=== PATIENT | male | born 1970 | race Caucasian/White ===

== ENCOUNTER 2019-09-15 15:30 | Inpatient (IN) | payer OTHER ==
[2019-09-15 18:59] VITALS: BMI 27.4
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
[2019-09-15] MEDS ORDERED: ALBUTEROL SO4 HFA INHALER IH PRN (22:28)
[2019-09-15] MEDS ORDERED: BISMUTH SUBSALICYLATE 524 MG/30 ML UD PO PRN (22:31)
[2019-09-15] MEDS ORDERED: MENTHOL/PHENOL 1 EACH UD MM PRN (22:31)
[2019-09-15] MEDS ORDERED: MAG HYDROX/AL HYDROX/SIMETH 30 ML UNIT-DOSE CUP PO PRN (22:31)
[2019-09-15] MEDS ORDERED: MAGNESIUM CITRATE 300 ML BOTTLE PO PRN (22:31)
[2019-09-15] MEDS ORDERED: MAGNESIUM HYDROX 2400MG/30ML ORAL SUSPENSION 30 ML CUP PO PRN (22:31)
[2019-09-15] MEDS ORDERED: hydrOXYzine PAMOATE 25 MG CAPSULE (FP) PO PRN (22:31)
[2019-09-15] MEDS ORDERED: ACETAMINOPHEN 325 MG TABLET (FP) PO PRN (22:31)
[2019-09-15] MEDS ORDERED: cloNIDine HCL 0.1 MG TABLET PO PRN (22:33)
[2019-09-15] MEDS ORDERED: METHADONE HCL 10 MG TABLET (FOR DETOX USE ONLY) PO ONE (23:00)
[2019-09-15] MEDS ORDERED: BACITRACIN/POLYMYXIN B SULFATE 15 GM TUBE TP SCH ×2 (23:00→23:20)
[2019-09-16] MEDS: METHOCARBAMOL 500 MG TABLET PO PRN ×2 (00:05→22:42)
[2019-09-16] MEDS: CLINDAMYCIN HCL 150 MG CAPSULE (FP) PO SCH ×6 (00:05→23:16)
[2019-09-16] MEDS: clonazePAM 0.5 MG TABLET PO PRN ×2 (00:05→22:42)
[2019-09-16] MEDS: IBUPROFEN 400 MG TABLET (FP) PO PRN ×2 (00:10→17:35)
[2019-09-16] MEDS: MELATONIN 5 MG TABLETS PO PRN ×2 (00:13→22:43)
[2019-09-16] MEDS: BACITRACIN 15 GM TUBE TOPICAL OINTMENT TP SCH ×3 (00:28→22:42)
[2019-09-16] MEDS ORDERED: METHADONE HCL 10 MG TABLET (FOR DETOX USE ONLY) ONE (09:23)
[2019-09-16] MEDS ORDERED: METHADONE HCL 5 MG TABLET (FOR DETOX USE ONLY) ONE (09:23)
[2019-09-16] MEDS ORDERED: METHADONE (DETOX) 20 MG, METHADONE (DETOX) 5 MG PO ONE (10:00)
[2019-09-16] MEDS: PRENATAL VITAMINS W/ FOLIC ACID TABLET (FP) PO SCH (10:44)
--- NOTE | 2019-09-16 12:01 | EKG ---
Test Reason : Blood Pressure : / mmHG Vent. Rate : 058 BPM Atrial Rate : 058 BPM P-R Int : 126 ms QRS Dur : 094 ms QT Int : 424 ms P-R-T Axes : 045 049 043 degrees QTc Int : 416 ms SINUS BRADYCARDIA OTHERWISE NORMAL ECG WHEN COMPARED WITH ECG OF 12-FEB-2018 14:10, NO SIGNIFICANT CHANGE WAS FOUND Confirmed by REID FUCHS MD ([id number]) on 09/16/2019 12:01:15 PM Referred By: Confirmed By:REID FUCHS MD
--- NOTE | 2019-09-16 14:59 | PN ---
BHS COWS - Scale Resting Pulse: 0= [place] 80 or Below Sweatin= Chills/Flushing Restless Observation: 0= Sits Still Pupil Size: 1= Pupils >than Normal Bone or Joint Aches: 1= Mild Discomfort Runny Nose/ Eye Tearin= Nasal Congestion GI Upset > 30mins: 1= Stomach Cramp Tremor Observation of Outstretched Hands: 1= Tremor [place], Not Seen Yawning Observation: 0= None Anxiety or Irritability: 1=Feels Anxious/Irritable Goose Flesh Skin: 3=Piloerection COWS Score: 10 BHS Progress Note (SOAP) Subjective: 49 years old male admitted on 09/15/19 for opiate withdrawal sx management treating with methadone detox regimen multiple track willis and scars from healed abscess due to IV drug using patient understands the purpose of "clean" needles as well as keep current I&D of left inner calf and right upper arm abscess two partial thickness traumatic wounds left leg 13 cm in diameter beefy red swelling warm and tender center I&D incision well demarkated yellow pus noted in center right fore arm 15cm in diameter beefy red swelling warm tender with yellow pus patient wants to "peel" it open himself "I do that many times" right arm wound cleaned with alcohol cover with sterile gauze encourage warm compress and keep area clean and dry Objective: 09/16/19 15:47 Vital Signs Temperature 97.6 F 09/16/19 13:08 Pulse Rate 47 L 09/16/19 13:08 Respiratory Rate 18 09/16/19 13:08 Blood Pressure 119/69 09/16/19 13:08 O2 Sat by Pulse Oximetry (%) 09/16/19 15:51 lab pending Assessment: 09/16/19 15:51 opiate withdrawal Plan: methadone regimen
[2019-09-16] MEDS: THIAMINE HCL 100 MG TABLET (FP) PO SCH (23:05)
[2019-09-17] MEDS: CLINDAMYCIN HCL 150 MG CAPSULE (FP) PO SCH ×4 (06:06→23:01)
[2019-09-17 09:28] LABS: HEMATOCRIT 32.3 % (35.4-49); MCH 30.2 pg (25.7-33.7); MCHC 34.1 g/dl (32.0-35.9); MEAN CELL VOLUME 88.6 fl (80-96); MEAN PLT VOLUME 9.1 fl (7.5-11.1); PLATELET COUNT 205 K/MM3 (134-434); RBC 3.65 M/mm3 (4.00-5.60); RDW 14.3 % (11.9-15.9); WHITE BLOOD COUNT 3.2 K/mm3 (4.0-10.0)
[2019-09-17 09:41] LABS: BILIRUBIN,TOTAL 0.6 mg/dL (0.2-1); BLOOD UREA NITROGEN 14.8 mg/dL (7-18); CALCIUM 8.5 mg/dL (8.5-10.1); CREATININE 0.8 mg/dL (0.55-1.3); TOT PROT 7.2 g/dl (6.4-8.2)
[2019-09-17] MEDS: PRENATAL VITAMINS W/ FOLIC ACID TABLET (FP) PO SCH (09:43)
[2019-09-17] MEDS: ACETAMINOPHEN 325 MG TABLET (FP) PO PRN ×2 (09:43→23:01)
[2019-09-17] MEDS: BACITRACIN 15 GM TUBE TOPICAL OINTMENT TP SCH ×2 (09:45→22:39)
[2019-09-17] MEDS ORDERED: METHADONE HCL 10 MG TABLET (FOR DETOX USE ONLY) PO ONE (10:00)
--- NOTE | 2019-09-17 14:24 | PN ---
BHS COWS - Scale Resting Pulse: 0= [place] 80 or Below Sweatin= Chills/Flushing Restless Observation: 1= Difficult to Sit Still Pupil Size: 1= Pupils >than Normal Bone or Joint Aches: 2= Severe Diffuse Aches Runny Nose/ Eye Tearin= Nasal Congestion GI Upset > 30mins: 1= Stomach Cramp Tremor Observation of Outstretched Hands: 0= None Yawning Observation: 0= None Anxiety or Irritability: 1=Feels Anxious/Irritable Goose Flesh Skin: 0=Smooth Skin COWS Score: 8 BHS Progress Note (SOAP) Subjective: interrupted sleep, sweats,, achy, left calf abscess d/c. Objective: 09/17/19 14:20 Vital Signs Temperature 98.4 F 09/17/19 13:33 Pulse Rate 49 L 09/17/19 13:33 Respiratory Rate 18 09/17/19 13:33 Blood Pressure 142/66 09/17/19 13:33 O2 Sat by Pulse Oximetry (%) Laboratory Tests 09/17/19 09/17/19 09/17/19 08:20 08:20 08:20 WBC 3.2 L RBC 3.65 L Hgb 11.0 L Hct 32.3 L MCV 88.6 MCH 30.2 MCHC 34.1 RDW 14.3 Plt Count 205 MPV 9.1 Sodium 139 Potassium 4.0 Chloride 109 H Carbon Dioxide 26 Anion Gap 4 L BUN 14.8 Creatinine 0.8 Est GFR (CKD-EPI)AfAm 123.29 Est GFR (CKD-EPI)NonAf 106.38 Random Glucose 114 H Calcium 8.5 Total Bilirubin 0.6 AST 19 ALT 25 Alkaline Phosphatase 83 Total Protein 7.2 Albumin 3.0 L RPR Titer Nonreactive pt aox3 in nad; in wc rt forearm abscess left calf draing abscess /whitish d/c surrounding erythema Assessment: 09/17/19 14:23 withdrawal sx's rt forearm abscess left calf abscess neutropenia anemia Plan: cont detox increase fluids cont clindamycin daily wound care and dressings warm compresses to rt forearm
[2019-09-17] MEDS: clonazePAM 0.5 MG TABLET PO PRN (14:31)
[2019-09-17] MEDS: THIAMINE HCL 100 MG TABLET (FP) PO SCH (23:01)
[2019-09-18] MEDS: ACETAMINOPHEN 325 MG TABLET (FP) PO PRN (06:03)
[2019-09-18] MEDS: CLINDAMYCIN HCL 150 MG CAPSULE (FP) PO SCH ×4 (06:03→23:06)
[2019-09-18] MEDS ORDERED: METHADONE HCL 10 MG TABLET (FOR DETOX USE ONLY) ONE (08:36)
[2019-09-18] MEDS ORDERED: METHADONE HCL 5 MG TABLET (FOR DETOX USE ONLY) ONE (08:36)
[2019-09-18] MEDS ORDERED: METHADONE (DETOX) 10 MG, METHADONE (DETOX) 5 MG PO ONE (10:00)
[2019-09-18] MEDS: PRENATAL VITAMINS W/ FOLIC ACID TABLET (FP) PO SCH (10:35)
[2019-09-18] MEDS: BACITRACIN 15 GM TUBE TOPICAL OINTMENT TP SCH ×2 (10:35→23:15)
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
--- NOTE | 2019-09-18 11:40 | PN ---
BHS COWS - Scale Resting Pulse: 0= [place] 80 or Below Sweatin= Chills/Flushing Restless Observation: 1= Difficult to Sit Still Pupil Size: 0= Normal to Room Light Bone or Joint Aches: 2= Severe Diffuse Aches Runny Nose/ Eye Tearin= None GI Upset > 30mins: 0= None Tremor Observation of Outstretched Hands: 0= None Yawning Observation: 1= 1-2x During Session Anxiety or Irritability: 2=Irritable/Anxious Goose Flesh Skin: 0=Smooth Skin COWS Score: 7 BHS Progress Note (SOAP) Subjective: c/o anxiety, sweats, muscle aches, and irritability. Objective: 09/18/19 11:41 Vital Signs 09/18/19 09/18/19 09/18/19 06:30 06:35 09:15 Temperature 98.5 F 98.2 F Pulse Rate 45 L 67 Respiratory 18 18 18 Rate Blood Pressure 152/75 138/81 Laboratory Last Values WBC 3.2 K/mm3 (4.0-10.0) L 09/17/19 08:20 RBC 3.65 M/mm3 (4.00-5.60) L 09/17/19 08:20 Hgb 11.0 GM/dL (11.7-16.9) L 09/17/19 08:20 Hct 32.3 % (35.4-49) L 09/17/19 08:20 MCV 88.6 fl (80-96) 09/17/19 08:20 MCH 30.2 pg (25.7-33.7) 09/17/19 08:20 MCHC 34.1 g/dl (32.0-35.9) 09/17/19 08:20 RDW 14.3 % (11.9-15.9) 09/17/19 08:20 Plt Count 205 K/MM3 (134-434) 09/17/19 08:20 MPV 9.1 fl (7.5-11.1) 09/17/19 08:20 Sodium 139 mmol/L (136-145) 09/17/19 08:20 Potassium 4.0 mmol/L (3.5-5.1) 09/17/19 08:20 Chloride 109 mmol/L (98-107) H 09/17/19 08:20 Carbon Dioxide 26 mmol/L (21-32) 09/17/19 08:20 Anion Gap 4 MMOL/L (8-16) L 09/17/19 08:20 BUN 14.8 mg/dL (7-18) 09/17/19 08:20 Creatinine 0.8 mg/dL (0.55-1.3) 09/17/19 08:20 Est GFR (CKD-EPI)AfAm 123.29 09/17/19 08:20 Est GFR (CKD-EPI)NonAf 106.38 09/17/19 08:20 Random Glucose 114 mg/dL (74-106) H 09/17/19 08:20 Calcium 8.5 mg/dL (8.5-10.1) 09/17/19 08:20 Total Bilirubin 0.6 mg/dL (0.2-1) 09/17/19 08:20 AST 19 U/L (15-37) 09/17/19 08:20 ALT 25 U/L (13-61) 09/17/19 08:20 Alkaline Phosphatase 83 U/L (45-117) 09/17/19 08:20 Total Protein 7.2 g/dl (6.4-8.2) 09/17/19 08:20 Albumin 3.0 g/dl (3.4-5.0) L 09/17/19 08:20 RPR Titer Nonreactive (NONREACTIVE) 09/17/19 08:20 Labs noted. Assessment: 09/18/19 11:41 AOX3, in no acute respiratory distress. Full ROM, ambulating in the unit. Withdrawal symptoms. Left calf abscess dsg changed by RN. Right arm abscess. Plan: continue detox. continue antibiotic po/topical.
[2019-09-18] MEDS: SERTRALINE HCL 50 MG TABLET (FP) PO SCH (13:27)
[2019-09-18] MEDS: OLANZapine 10 MG TABLET PO SCH ×2 (13:27→23:06)
[2019-09-18] MEDS: THIAMINE HCL 100 MG TABLET (FP) PO SCH (23:06)
[2019-09-18] MEDS: traZODone HCL 100 MG TABLET (FP) PO SCH (23:06)
[2019-09-18] MEDS: METHOCARBAMOL 500 MG TABLET PO PRN (23:06)
[2019-09-18] MEDS: IBUPROFEN 400 MG TABLET (FP) PO PRN (23:08)
[2019-09-19] MEDS: CLINDAMYCIN HCL 150 MG CAPSULE (FP) PO SCH ×3 (06:08→17:50)
[2019-09-19] MEDS: IBUPROFEN 400 MG TABLET (FP) PO PRN (06:08)
[2019-09-19] MEDS: OLANZapine 10 MG TABLET PO SCH ×2 (09:25→22:06)
[2019-09-19] MEDS: PRENATAL VITAMINS W/ FOLIC ACID TABLET (FP) PO SCH (09:25)
[2019-09-19] MEDS: BACITRACIN 15 GM TUBE TOPICAL OINTMENT TP SCH ×2 (09:25→22:05)
[2019-09-19] MEDS: SERTRALINE HCL 50 MG TABLET (FP) PO SCH (09:25)
[2019-09-19] MEDS ORDERED: METHADONE HCL 10 MG TABLET (FOR DETOX USE ONLY) PO ONE (10:00)
--- NOTE | 2019-09-19 11:22 | PN ---
BHS COWS - Scale Resting Pulse: 0= [place] 80 or Below Sweatin= No chills or Flushing Restless Observation: 0= Sits Still Pupil Size: 0= Normal to Room Light Bone or Joint Aches: 1= Mild Discomfort Runny Nose/ Eye Tearin= None GI Upset > 30mins: 1= Stomach Cramp Tremor Observation of Outstretched Hands: 1= Tremor [place], Not Seen Yawning Observation: 0= None Anxiety or Irritability: 1=Feels Anxious/Irritable Goose Flesh Skin: 0=Smooth Skin COWS Score: 4 BHS Progress Note (SOAP) Subjective: 49 years old male admitted on 09/15/19 for opiate withdrawal sx management treating with methadone detox regimen feeling better today but feeling pain requests percocet "I take percocet every day at home for pain" health teaching on risks of percocet Objective: 09/19/19 11:22 Vital Signs Temperature 97.9 F 09/19/19 09:12 Pulse Rate 57 L 09/19/19 09:12 Respiratory Rate 18 09/19/19 09:12 Blood Pressure 155/96 09/19/19 09:12 O2 Sat by Pulse Oximetry (%) Laboratory Last Values WBC 3.2 K/mm3 (4.0-10.0) L 09/17/19 08:20 RBC 3.65 M/mm3 (4.00-5.60) L 09/17/19 08:20 Hgb 11.0 GM/dL (11.7-16.9) L 09/17/19 08:20 Hct 32.3 % (35.4-49) L 09/17/19 08:20 MCV 88.6 fl (80-96) 09/17/19 08:20 MCH 30.2 pg (25.7-33.7) 09/17/19 08:20 MCHC 34.1 g/dl (32.0-35.9) 09/17/19 08:20 RDW 14.3 % (11.9-15.9) 09/17/19 08:20 Plt Count 205 K/MM3 (134-434) 09/17/19 08:20 MPV 9.1 fl (7.5-11.1) 09/17/19 08:20 Sodium 139 mmol/L (136-145) 09/17/19 08:20 Potassium 4.0 mmol/L (3.5-5.1) 09/17/19 08:20 Chloride 109 mmol/L (98-107) H 09/17/19 08:20 Carbon Dioxide 26 mmol/L (21-32) 09/17/19 08:20 Anion Gap 4 MMOL/L (8-16) L 09/17/19 08:20 BUN 14.8 mg/dL (7-18) 09/17/19 08:20 Creatinine 0.8 mg/dL (0.55-1.3) 09/17/19 08:20 Est GFR (CKD-EPI)AfAm 123.29 09/17/19 08:20 Est GFR (CKD-EPI)NonAf 106.38 09/17/19 08:20 Random Glucose 114 mg/dL (74-106) H 09/17/19 08:20 Calcium 8.5 mg/dL (8.5-10.1) 09/17/19 08:20 Total Bilirubin 0.6 mg/dL (0.2-1) 09/17/19 08:20 AST 19 U/L (15-37) 09/17/19 08:20 ALT 25 U/L (13-61) 09/17/19 08:20 Alkaline Phosphatase 83 U/L (45-117) 09/17/19 08:20 Total Protein 7.2 g/dl (6.4-8.2) 09/17/19 08:20 Albumin 3.0 g/dl (3.4-5.0) L 09/17/19 08:20 RPR Titer Nonreactive (NONREACTIVE) 09/17/19 08:20 lab noted Assessment: 09/19/19 11:22 opiate withdrawal Plan: methadone regimen discuss medication assisted treatment program and pain management clinic for chronic pain
[2019-09-19] MEDS: GABAPENTIN 100 MG CAPSULE PO PRN (12:21)
[2019-09-19] MEDS: traZODone HCL 100 MG TABLET (FP) PO SCH (22:06)
[2019-09-19] MEDS: THIAMINE HCL 100 MG TABLET (FP) PO SCH (22:06)
[2019-09-20] MEDS: CLINDAMYCIN HCL 150 MG CAPSULE (FP) PO SCH ×5 (00:02→23:26)
[2019-09-20] MEDS ORDERED: METHADONE HCL 5 MG TABLET (FOR DETOX USE ONLY) PO ONE (06:00)
[2019-09-20] MEDS ORDERED: cloNIDine HCL 0.1 MG TABLET PO PRN (09:21)
[2019-09-20] MEDS: OLANZapine 10 MG TABLET PO SCH ×2 (10:05→22:12)
[2019-09-20] MEDS: SERTRALINE HCL 50 MG TABLET (FP) PO SCH (10:05)
[2019-09-20] MEDS: PRENATAL VITAMINS W/ FOLIC ACID TABLET (FP) PO SCH (10:05)
[2019-09-20] MEDS: BACITRACIN 15 GM TUBE TOPICAL OINTMENT TP SCH ×2 (10:05→22:13)
--- NOTE | 2019-09-20 10:07 | PN ---
BHS COWS - Scale Resting Pulse: 0= [place] 80 or Below Sweatin= No chills or Flushing Restless Observation: 0= Sits Still Pupil Size: 0= Normal to Room Light Bone or Joint Aches: 1= Mild Discomfort Runny Nose/ Eye Tearin= None GI Upset > 30mins: 0= None Tremor Observation of Outstretched Hands: 1= Tremor [place], Not Seen Yawning Observation: 0= None Anxiety or Irritability: 0= None Goose Flesh Skin: 0=Smooth Skin COWS Score: 2 BHS Progress Note (SOAP) Subjective: 49 years old male admitted on 09/15/19 for opiate withdrawal sx management treating with methadone detox regimen left calf I & D dressing change appears healing scarce discharge well demarcated incision patient determines to maintain sober transition to chemical dependent rehab for recovery Objective: 09/20/19 10:10 Vital Signs Temperature 97.9 F 09/20/19 09:18 Pulse Rate 63 09/20/19 09:18 Respiratory Rate 18 09/20/19 09:18 Blood Pressure 167/91 09/20/19 09:18 O2 Sat by Pulse Oximetry (%) Laboratory Last Values WBC 3.2 K/mm3 (4.0-10.0) L 09/17/19 08:20 RBC 3.65 M/mm3 (4.00-5.60) L 09/17/19 08:20 Hgb 11.0 GM/dL (11.7-16.9) L 09/17/19 08:20 Hct 32.3 % (35.4-49) L 09/17/19 08:20 MCV 88.6 fl (80-96) 09/17/19 08:20 MCH 30.2 pg (25.7-33.7) 09/17/19 08:20 MCHC 34.1 g/dl (32.0-35.9) 09/17/19 08:20 RDW 14.3 % (11.9-15.9) 09/17/19 08:20 Plt Count 205 K/MM3 (134-434) 09/17/19 08:20 MPV 9.1 fl (7.5-11.1) 09/17/19 08:20 Sodium 139 mmol/L (136-145) 09/17/19 08:20 Potassium 4.0 mmol/L (3.5-5.1) 09/17/19 08:20 Chloride 109 mmol/L (98-107) H 09/17/19 08:20 Carbon Dioxide 26 mmol/L (21-32) 09/17/19 08:20 Anion Gap 4 MMOL/L (8-16) L 09/17/19 08:20 BUN 14.8 mg/dL (7-18) 09/17/19 08:20 Creatinine 0.8 mg/dL (0.55-1.3) 09/17/19 08:20 Est GFR (CKD-EPI)AfAm 123.29 09/17/19 08:20 Est GFR (CKD-EPI)NonAf 106.38 09/17/19 08:20 Random Glucose 114 mg/dL (74-106) H 09/17/19 08:20 Calcium 8.5 mg/dL (8.5-10.1) 09/17/19 08:20 Total Bilirubin 0.6 mg/dL (0.2-1) 09/17/19 08:20 AST 19 U/L (15-37) 09/17/19 08:20 ALT 25 U/L (13-61) 09/17/19 08:20 Alkaline Phosphatase 83 U/L (45-117) 09/17/19 08:20 Total Protein 7.2 g/dl (6.4-8.2) 09/17/19 08:20 Albumin 3.0 g/dl (3.4-5.0) L 09/17/19 08:20 RPR Titer Nonreactive (NONREACTIVE) 09/17/19 08:20 lab noted bp elevation clonidine 0.1 mg prn q6h amlodipine 10 mg po daily Assessment: 09/20/19 10:11 opiate withdrawal Plan: methadone regimen
[2019-09-20] MEDS: GABAPENTIN 100 MG CAPSULE PO PRN (13:18)
[2019-09-20] MEDS ORDERED: amLODIPine BESYLATE 10 MG TABLET (FP) PO SCH (22:00)
[2019-09-20] MEDS: THIAMINE HCL 100 MG TABLET (FP) PO SCH (22:12)
[2019-09-20] MEDS: traZODone HCL 100 MG TABLET (FP) PO SCH (22:12)
[2019-09-20] MEDS: MELATONIN 5 MG TABLETS PO PRN (22:12)
[2019-09-21] MEDS: CLINDAMYCIN HCL 150 MG CAPSULE (FP) PO SCH (07:27)
[2019-09-21 09:07] VITALS: BP 142/85; PULSE 77; TEMP 97
[2019-09-21] MEDS: BACITRACIN 15 GM TUBE TOPICAL OINTMENT TP SCH (10:03)
[2019-09-21] MEDS: OLANZapine 10 MG TABLET PO SCH (10:03)
[2019-09-21] MEDS: PRENATAL VITAMINS W/ FOLIC ACID TABLET (FP) PO SCH (10:03)
[2019-09-21] MEDS: SERTRALINE HCL 50 MG TABLET (FP) PO SCH (10:03)
[2019-09-21] MEDS: GABAPENTIN 100 MG CAPSULE PO PRN (10:07)
--- NOTE | 2019-09-21 13:27 | DS ---
[facility] Detox Discharge Summary Admission Date: 09/15/19 Discharge Date: 09/21/19 - History Present History: Opioid Dependence Additional Comments: 49 years old male admitted on 09/15/19 for opiate withdrawal sx management treated with methadone detox regiment patient has completed methadone regimen and tolerated well alert oriented x 3 seen by psychiatrist resumed zyprexa trazadone and zoloft respiratory clear lungs bilaterally on auscultation ambulating with walker on and off around the hallway and day room skin warm and dry left calf I & D wound dressing changed scarce serosanguinal noted no exudate no offensive oder none tenderness 2 cm in diameter round edge flash skin red color dressing secured with tulio wrap - Physical Exam Results Vital Signs: Vital Signs Temperature 97 F L 09/21/19 09:06 Pulse Rate 77 09/21/19 09:06 Respiratory Rate 20 09/21/19 09:06 Blood Pressure 142/85 09/21/19 09:06 O2 Sat by Pulse Oximetry (%) Pertinent Admission Physical Exam Findings: opiate withdrawal Laboratory Last Values WBC 3.2 K/mm3 (4.0-10.0) L 09/17/19 08:20 RBC 3.65 M/mm3 (4.00-5.60) L 09/17/19 08:20 Hgb 11.0 GM/dL (11.7-16.9) L 09/17/19 08:20 Hct 32.3 % (35.4-49) L 09/17/19 08:20 MCV 88.6 fl (80-96) 09/17/19 08:20 MCH 30.2 pg (25.7-33.7) 09/17/19 08:20 MCHC 34.1 g/dl (32.0-35.9) 09/17/19 08:20 RDW 14.3 % (11.9-15.9) 09/17/19 08:20 Plt Count 205 K/MM3 (134-434) 09/17/19 08:20 MPV 9.1 fl (7.5-11.1) 09/17/19 08:20 Sodium 139 mmol/L (136-145) 09/17/19 08:20 Potassium 4.0 mmol/L (3.5-5.1) 09/17/19 08:20 Chloride 109 mmol/L (98-107) H 09/17/19 08:20 Carbon Dioxide 26 mmol/L (21-32) 09/17/19 08:20 Anion Gap 4 MMOL/L (8-16) L 09/17/19 08:20 BUN 14.8 mg/dL (7-18) 09/17/19 08:20 Creatinine 0.8 mg/dL (0.55-1.3) 09/17/19 08:20 Est GFR (CKD-EPI)AfAm 123.29 09/17/19 08:20 Est GFR (CKD-EPI)NonAf 106.38 09/17/19 08:20 Random Glucose 114 mg/dL (74-106) H 09/17/19 08:20 Calcium 8.5 mg/dL (8.5-10.1) 09/17/19 08:20 Total Bilirubin 0.6 mg/dL (0.2-1) 09/17/19 08:20 AST 19 U/L (15-37) 09/17/19 08:20 ALT 25 U/L (13-61) 09/17/19 08:20 Alkaline Phosphatase 83 U/L (45-117) 09/17/19 08:20 Total Protein 7.2 g/dl (6.4-8.2) 09/17/19 08:20 Albumin 3.0 g/dl (3.4-5.0) L 09/17/19 08:20 RPR Titer Nonreactive (NONREACTIVE) 09/17/19 08:20 lab noted - Treatment Hospital Course: Detox Protocol Followed, Detoxed Safely, Responded well, Discharged Condition Good, Rehab Referral Accepted Patient [facility] - Medication Discharge Medications: Ambulatory Orders Albuterol Sulfate Inhaler - [Ventolin HFA Inhaler -] 2 inh PO Q4H PRN 02/12/18 Clonidine HCl [Catapres] 0.2 mg PO BID 02/12/18 Fluoxetine HCl [Prozac] 20 mg PO DAILY 02/12/18 Olanzapine [Zyprexa] 20 mg PO HS 02/12/18 Sertraline HCl [Zoloft] 100 mg PO DAILY 02/12/18 Trazodone HCl 100 mg PO HS 02/12/18 Naloxone HCl [Narcan] 4 mg NS ASDIR PRN #1 spray 09/20/19 Amlodipine Besylate [Norvasc -] 10 mg PO HS 09/21/19 Gabapentin [Neurontin] 100 mg PO BID 09/21/19 - Diagnosis (1) Opioid dependence with withdrawal Status: Acute (2) Walker as ambulation aid Status: Chronic (3) Asthma Status: Chronic Qualifiers: Asthma severity: mild Asthma persistence: intermittent Asthma complication type: uncomplicated Qualified Code(s): J45.20 - Mild intermittent asthma, uncomplicated (4) Substance induced mood disorder Status: Suspected (5) Wound abscess Status: Acute - AMA Did Patient Leave Against Medical Advice: No COWS (PN) - Opiate Withdrawal Resting Pulse: 0= [place] 80 or Below Sweatin= No chills or Flushing Restless Observation: 0= Sits Still Pupil Size: 0= Normal to Room Light Bone or Joint Aches: 0= None Runny Nose/ Eye Tearin= None GI Upset > 30mins: 0= None Tremor Observation of Outstretched Hands: 0= None Yawning Observation: 0= None Anxiety or Irritability: 1=Feels Anxious/Irritable Goose Flesh Skin: 0=Smooth Skin COWS Score: 1
== END 2019-09-21 11:09 | disposition home or self-care (01) | DRG 773 ==
LOC: YASAS 15:30 → Y3N 22:52
PROVIDERS: ADMIT Allergy & Immunology; ATTEND Allergy & Immunology
PROC: HZ2ZZZZ Detoxification Services for Substance Abuse Treatment (ICD-10-PCS; principal; 2019-09-15)
DX: F11.23 Opioid dependence with withdrawal (principal); F14.20 Cocaine dependence, uncomplicated; F17.210 Nicotine dependence, cigarettes, uncomplicated; F19.24 Other psychoactive substance dependence with psychoactive substance-induced mood disorder; F25.9 Schizoaffective disorder, unspecified; I10 Essential (primary) hypertension; E78.5 Hyperlipidemia, unspecified; G47.00 Insomnia, unspecified; J45.20 Mild intermittent asthma, uncomplicated; D64.9 Anemia, unspecified; L02.413 Cutaneous abscess of right upper limb; L02.416 Cutaneous abscess of left lower limb; Z99.89 Dependence on other enabling machines and devices; Z91.5 Personal history of self-harm; Z59.0 Homelessness
CPT/HCPCS: 36415; 80053; 85027; 86593; 93005; 93010; J0735

== ENCOUNTER 2020-03-28 17:47 | Inpatient (IN) | payer OTHER ==
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
[2020-03-28] MEDS ORDERED: METHOCARBAMOL 500 MG TABLET PO PRN (19:59)
[2020-03-28] MEDS ORDERED: MAGNESIUM CITRATE 300 ML BOTTLE PO PRN (19:59)
[2020-03-28] MEDS ORDERED: hydrOXYzine PAMOATE 25 MG CAPSULE (FP) PO PRN (19:59)
[2020-03-28] MEDS ORDERED: BISMUTH SUBSALICYLATE 524 MG/30 ML UD PO PRN (19:59)
[2020-03-28] MEDS ORDERED: NICOTINE POLACRILEX 2 MG GUM BUC PRN (19:59)
[2020-03-28] MEDS ORDERED: IBUPROFEN 400 MG TABLET (FP) PO PRN (19:59)
[2020-03-28] MEDS ORDERED: MENTHOL/PHENOL 1 EACH UD MM PRN (19:59)
[2020-03-28] MEDS ORDERED: ACETAMINOPHEN 325 MG TABLET (FP) PO PRN ×2 (19:59)
[2020-03-28] MEDS ORDERED: MAG HYDROX/AL HYDROX/SIMETH 30 ML UNIT-DOSE CUP PO PRN (19:59)
[2020-03-28] MEDS ORDERED: MAGNESIUM HYDROX 2400MG/30ML ORAL SUSPENSION 30 ML CUP PO PRN (19:59)
[2020-03-28] MEDS ORDERED: ALBUTEROL SO4 HFA INHALER IH PRN (20:03)
[2020-03-28 20:04] VITALS: BMI 24.5
[2020-03-28] MEDS ORDERED: METHADONE HCL 10 MG TABLET (FOR DETOX USE ONLY) PO ONE (20:30)
[2020-03-28] MEDS ORDERED: ONDANSETRON *ODT* 4 MG TABLET SL ONE (20:30)
[2020-03-28] MEDS: THIAMINE HCL 100 MG TABLET (FP) PO SCH (22:35)
[2020-03-28] MEDS: MELATONIN 5 MG TABLETS PO SCH (22:36)
--- NOTE | 2020-03-29 09:16 | EKG ---
Test Reason : Blood Pressure : / mmHG Vent. Rate : 045 BPM Atrial Rate : 045 BPM P-R Int : 134 ms QRS Dur : 106 ms QT Int : 460 ms P-R-T Axes : 042 054 036 degrees QTc Int : 397 ms SINUS BRADYCARDIA OTHERWISE NORMAL ECG WHEN COMPARED WITH ECG OF 15-SEP-2019 23:11, NO SIGNIFICANT CHANGE WAS FOUND Confirmed by MD GARCIA PENG ([id number]) on 03/29/2020 9:16:12 AM Referred By: Confirmed By:CANDIDO GARCIA MD
[2020-03-29] MEDS ORDERED: METHADONE HCL 10 MG TABLET (FOR DETOX USE ONLY) ONE (09:41)
[2020-03-29] MEDS ORDERED: METHADONE HCL 5 MG TABLET (FOR DETOX USE ONLY) ONE (09:42)
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
[2020-03-29] MEDS ORDERED: METHADONE (DETOX) 20 MG, METHADONE (DETOX) 5 MG PO ONE (10:00)
[2020-03-29] MEDS ORDERED: cloNIDine HCL 0.1 MG TABLET PO PRN (10:11)
[2020-03-29] MEDS: amLODIPine BESYLATE 10 MG TABLET (FP) PO SCH (10:24)
[2020-03-29] MEDS: PRENATAL VITAMINS W/ FOLIC ACID TABLET (FP) PO SCH (10:24)
[2020-03-29] MEDS: NICOTINE 7 MG/24 HOURS TOPICAL PATCH TD SCH (10:27)
--- NOTE | 2020-03-29 10:52 | PN ---
[facility] Progress Note Note: Psychiatry Attending's note : Request for psychiatric consult. Noted. Blueprint Engineer visited patient at bedside. Mr Sam has been already medicated. Asleep. Case discussed with counselor, Nelson Segundo. Examination deferred until patient fully awake.
[2020-03-29 11:19] LABS: HEMATOCRIT 37.4 % (35.4-49); HEMOGLOBIN 12.5 GM/dL (11.7-16.9); MCH 30.6 pg (25.7-33.7); MCHC 33.4 g/dl (32.0-35.9); MEAN CELL VOLUME 91.7 fl (80-96); MEAN PLT VOLUME 11.2 fl (7.5-11.1); PLATELET COUNT 98 K/MM3 (134-434); RBC 4.08 M/mm3 (4.00-5.60); RDW 14.1 % (11.9-15.9); WHITE BLOOD COUNT 2.5 K/mm3 (4.0-10.0)
[2020-03-29 11:22] LABS: ALBUMIN 3.7 g/dl (3.4-5.0); BILIRUBIN,TOTAL 0.7 mg/dL (0.2-1); BLOOD UREA NITROGEN 12.2 mg/dL (7-18); CREATININE 0.9 mg/dL (0.55-1.3); POTASSIUM 3.9 mmol/L (3.5-5.1); TOT PROT 7.6 g/dl (6.4-8.2)
[2020-03-29] MEDS: hydrOXYzine PAMOATE 50 MG CAPSULE (FP) PO SCH ×3 (11:50→22:32)
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
[2020-03-29] MEDS: traZODone HCL 100 MG TABLET (FP) PO SCH (22:29)
[2020-03-29] MEDS: OLANZapine 10 MG TABLET PO SCH (22:29)
[2020-03-29] MEDS: GABAPENTIN 100 MG CAPSULE PO SCH (22:29)
[2020-03-29] MEDS: MELATONIN 5 MG TABLETS PO SCH (22:31)
[2020-03-29] MEDS: THIAMINE HCL 100 MG TABLET (FP) PO SCH (22:32)
[2020-03-30] MEDS: hydrOXYzine PAMOATE 50 MG CAPSULE (FP) PO SCH ×5 (06:29→22:52)
[2020-03-30] MEDS ORDERED: hydrOXYzine PAMOATE 50 MG CAPSULE (FP) PO ONE (08:34)
[2020-03-30] MEDS ORDERED: TRIMETHOBENZAMIDE HCL 200MG/2ML INJ IM ONE (08:35)
[2020-03-30] MEDS ORDERED: GABAPENTIN 100 MG CAPSULE PO ONE (08:36)
[2020-03-30] MEDS ORDERED: METHADONE HCL 10 MG TABLET (FOR DETOX USE ONLY) PO ONE ×2 (08:40→10:00)
[2020-03-30] MEDS: GABAPENTIN 100 MG CAPSULE PO SCH ×2 (09:57→22:46)
[2020-03-30] MEDS: PRENATAL VITAMINS W/ FOLIC ACID TABLET (FP) PO SCH (09:57)
[2020-03-30] MEDS: NICOTINE 7 MG/24 HOURS TOPICAL PATCH TD SCH (09:57)
[2020-03-30] MEDS ORDERED: METHADONE HCL 10 MG/1 ML (20ML VIAL) IM ONE (11:01)
[2020-03-30] MEDS: amLODIPine BESYLATE 10 MG TABLET (FP) PO SCH (11:10)
[2020-03-30] MEDS ORDERED: ONDANSETRON *ODT* 4 MG TABLET SL ONE (12:15)
--- NOTE | 2020-03-30 13:06 | PN ---
BHS COWS - Scale Resting Pulse: 0= [place] 80 or Below Sweatin= Chills/Flushing Restless Observation: 1= Difficult to Sit Still Pupil Size: 1= Pupils >than Normal Bone or Joint Aches: 0= None Runny Nose/ Eye Tearin= None GI Upset > 30mins: 3= Vomiting/Diarrhea Tremor Observation of Outstretched Hands: 1= Tremor [place], Not Seen Yawning Observation: 0= None Anxiety or Irritability: 2=Irritable/Anxious Goose Flesh Skin: 3=Piloerection COWS Score: 12 S Progress Note (SOAP) Subjective: 49 years old male admitted on 03/28/20 for opiate withdrawal sx management treating with methadone detox regiment vomiting with abdominal pain tigan 200mg IM x 1 around 850am methadone 20 mg was offered around 0910 am along with supportive measure of vistaril neurontin mr tello continue throwing up unable to tolerate lunch methadone 5 mg IM x 1 Objective: 03/30/20 13:26 Vital Signs - 24 hr 03/29/20 03/30/20 03/30/20 16:27 06:33 08:34 Temperature 97.3 F L 97.5 F L 96.9 F L Pulse Rate 63 57 L 41 L Respiratory 18 18 18 Rate Blood Pressure 124/85 99/51 L 162/89 O2 Sat by Pulse 96 Oximetry (%) 03/30/20 12:30 Temperature 97.8 F Pulse Rate 40 L Respiratory 18 Rate Blood Pressure 181/82 H O2 Sat by Pulse 99 Oximetry (%) 03/30/20 13:28 bp elevation clonidine 0.1 mg po q4h prn for opiate withdrawal Laboratory Tests 03/29/20 03/29/20 03/29/20 08:00 08:00 08:00 WBC 2.5 L RBC 4.08 Hgb 12.5 Hct 37.4 MCV 91.7 MCH 30.6 MCHC 33.4 RDW 14.1 D Plt Count 98 L D MPV 11.2 H D Sodium 141 Potassium 3.9 Chloride 106 Carbon Dioxide 32 Anion Gap 4 L BUN 12.2 Creatinine 0.9 Est GFR (CKD-EPI)AfAm 117.47 Est GFR (CKD-EPI)NonAf 101.35 Random Glucose 90 Calcium 9.0 Total Bilirubin 0.7 AST 30 ALT 33 Alkaline Phosphatase 97 Total Protein 7.6 Albumin 3.7 Syphilis Serology Non-reactive 03/30/20 13:28 covid pending Assessment: 03/30/20 13:29 opiate withdrawal Plan: methadone regiment
[2020-03-30] MEDS ORDERED: cloNIDine HCL 0.1 MG TABLET PO PRN ×2 (13:27→14:11)
[2020-03-30] MEDS: FAMOTIDINE 20 MG TABLET PO SCH ×2 (14:27→22:46)
[2020-03-30] MEDS: TRIMETHOBENZAMIDE HCL 200MG/2ML INJ IM PRN (18:11)
[2020-03-30] MEDS: MELATONIN 5 MG TABLETS PO SCH (22:46)
[2020-03-30] MEDS: THIAMINE HCL 100 MG TABLET (FP) PO SCH (22:47)
[2020-03-30] MEDS: OLANZapine 10 MG TABLET PO SCH (22:48)
[2020-03-30] MEDS: traZODone HCL 100 MG TABLET (FP) PO SCH (22:48)
[2020-03-31] MEDS: hydrOXYzine PAMOATE 50 MG CAPSULE (FP) PO SCH ×4 (06:51→22:10)
[2020-03-31] MEDS ORDERED: METHADONE HCL 10 MG TABLET (FOR DETOX USE ONLY) ONE (08:27)
[2020-03-31] MEDS ORDERED: METHADONE HCL 5 MG TABLET (FOR DETOX USE ONLY) ONE (08:27)
[2020-03-31] MEDS: PRENATAL VITAMINS W/ FOLIC ACID TABLET (FP) PO SCH (09:25)
[2020-03-31] MEDS: FAMOTIDINE 20 MG TABLET PO SCH ×2 (09:26→22:10)
[2020-03-31] MEDS: amLODIPine BESYLATE 10 MG TABLET (FP) PO SCH (09:26)
[2020-03-31] MEDS: GABAPENTIN 100 MG CAPSULE PO SCH ×2 (09:26→22:09)
[2020-03-31] MEDS: NICOTINE 7 MG/24 HOURS TOPICAL PATCH TD SCH (09:30)
[2020-03-31] MEDS ORDERED: METHADONE (DETOX) 10 MG, METHADONE (DETOX) 5 MG PO ONE (10:00)
--- NOTE | 2020-03-31 10:38 | PN ---
BHS COWS - Scale Resting Pulse: 0= [place] 80 or Below Sweatin= Chills/Flushing Restless Observation: 0= Sits Still Pupil Size: 0= Normal to Room Light Bone or Joint Aches: 1= Mild Discomfort Runny Nose/ Eye Tearin= None GI Upset > 30mins: 2= Nausea/Diarrhea Tremor Observation of Outstretched Hands: 0= None Yawning Observation: 0= None Anxiety or Irritability: 1=Feels Anxious/Irritable Goose Flesh Skin: 0=Smooth Skin COWS Score: 5 BHS Progress Note (SOAP) Subjective: Patient is a 49 year old male with history of opiate use disorder, asthma, cocaine dependence, nicotine dependence, marijuana dependence, hypertension, hyperlipidemia, depression, schizoaffective disorder, insomnia admitted 03/28/2020 for opiate withdrawal. Patient is awake, alert. Complaints of headache. Objective: 03/31/20 10:33 General: awake, no acute distress HEENT: NC/AT. PERRL, EOMI Neuro: moving all four extremities equally. No focal deficits. Mentation: normal Gait: steady Vital Signs Temperature 99.1 F 03/31/20 08:55 Pulse Rate 48 L 03/31/20 08:55 Respiratory Rate 18 03/31/20 08:55 Blood Pressure 158/85 03/31/20 08:55 O2 Sat by Pulse Oximetry (%) 98 03/31/20 06:30 Laboratory Tests 03/28/20 03/29/20 03/29/20 Unknown 08:00 08:00 WBC 2.5 L RBC 4.08 Hgb 12.5 Hct 37.4 MCV 91.7 MCH 30.6 MCHC 33.4 RDW 14.1 D Plt Count 98 L D MPV 11.2 H D Sodium Potassium Chloride Carbon Dioxide Anion Gap BUN Creatinine Est GFR (CKD-EPI)AfAm Est GFR (CKD-EPI)NonAf Random Glucose Calcium Total Bilirubin AST ALT Alkaline Phosphatase Total Protein Albumin Syphilis Serology Non-reactive COVID-19 ([facility]ASIA) Not detected 03/29/20 08:00 WBC RBC Hgb Hct MCV MCH MCHC RDW Plt Count MPV Sodium 141 Potassium 3.9 Chloride 106 Carbon Dioxide 32 Anion Gap 4 L BUN 12.2 Creatinine 0.9 Est GFR (CKD-EPI)AfAm 117.47 Est GFR (CKD-EPI)NonAf 101.35 Random Glucose 90 Calcium 9.0 Total Bilirubin 0.7 AST 30 ALT 33 Alkaline Phosphatase 97 Total Protein 7.6 Albumin 3.7 Syphilis Serology COVID-19 (TASIA) Assessment: 03/31/20 10:35 Patient is a 49 year old male with history of opiate use disorder, asthma, cocaine dependence, nicotine dependence, marijuana dependence, hypertension, hyperlipidemia, depression, schizoaffective disorder, insomnia admitted 03/28/20 20 for opiate withdrawal. Plan: Opiate use disorder: Methadone taper Asthma: Albuterol inhaler PRN Nicotine dependence: Nicotine patch, gum Cocaine dependence Marijuana dependence Hypertension: Continue home Amlodipine Peripheral neuropathy: Continue home Gabapentin Hyperlipidemia Depression, Schizoaffective disorder: Evaluated by Psychiatry. Continue Olanzapine, Trazodone. Insomnia: Melatonin
[2020-03-31] MEDS: OLANZapine 10 MG TABLET PO SCH (22:09)
[2020-03-31] MEDS: traZODone HCL 100 MG TABLET (FP) PO SCH (22:09)
[2020-03-31] MEDS: MELATONIN 5 MG TABLETS PO SCH (22:10)
[2020-03-31] MEDS: THIAMINE HCL 100 MG TABLET (FP) PO SCH (22:10)
[2020-04-01] MEDS: hydrOXYzine PAMOATE 50 MG CAPSULE (FP) PO SCH ×4 (06:14→22:08)
[2020-04-01] MEDS: TRIMETHOBENZAMIDE HCL 200MG/2ML INJ IM PRN (08:10)
[2020-04-01] MEDS ORDERED: METHADONE HCL 10 MG TABLET (FOR DETOX USE ONLY) PO ONE (10:00)
--- NOTE | 2020-04-01 11:50 | PN ---
[facility] COWS - Scale Resting Pulse: 0= MS 80 or Below Sweatin= No chills or Flushing Restless Observation: 0= Sits Still Pupil Size: 0= Normal to Room Light Bone or Joint Aches: 0= None Runny Nose/ Eye Tearin= None GI Upset > 30mins: 1= Stomach Cramp Tremor Observation of Outstretched Hands: 0= None Yawning Observation: 0= None Anxiety or Irritability: 2=Irritable/Anxious Goose Flesh Skin: 0=Smooth Skin COWS Score: 3 BHS Progress Note (SOAP) Subjective: c/o n/v, anxiety, and irritability. Objective: 04/01/20 11:48 Vital Signs 04/01/20 04/01/20 06:48 08:45 Temperature 97.7 F 98.6 F Pulse Rate 51 L 49 L Respiratory 16 20 Rate Blood Pressure 138/89 163/92 O2 Sat by Pulse 100 Oximetry (%) Laboratory Last Values WBC 2.5 K/mm3 (4.0-10.0) L 03/29/20 08:00 RBC 4.08 M/mm3 (4.00-5.60) 03/29/20 08:00 Hgb 12.5 GM/dL (11.7-16.9) 03/29/20 08:00 Hct 37.4 % (35.4-49) 03/29/20 08:00 MCV 91.7 fl (80-96) 03/29/20 08:00 MCH 30.6 pg (25.7-33.7) 03/29/20 08:00 MCHC 33.4 g/dl (32.0-35.9) 03/29/20 08:00 RDW 14.1 % (11.9-15.9) D 03/29/20 08:00 Plt Count 98 K/MM3 (134-434) L D 03/29/20 08:00 MPV 11.2 fl (7.5-11.1) H D 03/29/20 08:00 Sodium 141 mmol/L (136-145) 03/29/20 08:00 Potassium 3.9 mmol/L (3.5-5.1) 03/29/20 08:00 Chloride 106 mmol/L (98-107) 03/29/20 08:00 Carbon Dioxide 32 mmol/L (21-32) 03/29/20 08:00 Anion Gap 4 MMOL/L (8-16) L 03/29/20 08:00 BUN 12.2 mg/dL (7-18) 03/29/20 08:00 Creatinine 0.9 mg/dL (0.55-1.3) 03/29/20 08:00 Est GFR (CKD-EPI)AfAm 117.47 03/29/20 08:00 Est GFR (CKD-EPI)NonAf 101.35 03/29/20 08:00 Random Glucose 90 mg/dL (74-106) 03/29/20 08:00 Calcium 9.0 mg/dL (8.5-10.1) 03/29/20 08:00 Total Bilirubin 0.7 mg/dL (0.2-1) 03/29/20 08:00 AST 30 U/L (15-37) 03/29/20 08:00 ALT 33 U/L (13-61) 03/29/20 08:00 Alkaline Phosphatase 97 U/L (45-117) 03/29/20 08:00 Total Protein 7.6 g/dl (6.4-8.2) 03/29/20 08:00 Albumin 3.7 g/dl (3.4-5.0) 03/29/20 08:00 Syphilis Serology Non-reactive (NONREACTIVE) 03/29/20 08:00 COVID-19 ([facility]ASIA) Not detected (Not Detected) 03/28/20 Unknown Labs noted. Assessment: 04/01/20 11:48 AOX3, in no acute respiratory distress. Full ROM, ambulating in the unit. Mild Withdrawal symptoms. For d/c in tomorrow. 04/01/20 11:49 Plan: continue detox. D/C in AM.
[2020-04-01] MEDS: NICOTINE 7 MG/24 HOURS TOPICAL PATCH TD SCH (13:34)
[2020-04-01] MEDS: amLODIPine BESYLATE 10 MG TABLET (FP) PO SCH (13:34)
[2020-04-01] MEDS: GABAPENTIN 100 MG CAPSULE PO SCH ×2 (13:34→22:09)
[2020-04-01] MEDS: FAMOTIDINE 20 MG TABLET PO SCH ×2 (13:35→22:09)
[2020-04-01] MEDS: PRENATAL VITAMINS W/ FOLIC ACID TABLET (FP) PO SCH (13:36)
[2020-04-01] MEDS: THIAMINE HCL 100 MG TABLET (FP) PO SCH (22:08)
[2020-04-01] MEDS: traZODone HCL 100 MG TABLET (FP) PO SCH (22:08)
[2020-04-01] MEDS: OLANZapine 10 MG TABLET PO SCH (22:08)
[2020-04-01] MEDS: MELATONIN 5 MG TABLETS PO SCH (22:09)
[2020-04-02] MEDS ORDERED: METHADONE HCL 5 MG TABLET (FOR DETOX USE ONLY) PO ONE (06:00)
[2020-04-02] MEDS ORDERED: METHADONE HCL 10 MG TABLET PO ONE (08:37)
--- NOTE | 2020-04-02 08:42 | DS ---
[facility] Detox Discharge Summary Admission Date: 03/28/20 Discharge Date: 04/02/20 - History Present History: Opioid Dependence Additional Comments: 49 years old male admitted on 03/28/20 for opiate withdrawal sx management treated with methadone detox regiment seen by psychiatrist resume zyprexa trazodone and gabapentin mr tello has completed the methadone regiment and is tolerated well alert oriented x 3 ambulating with cane slow steady Vital Signs - 24 hr 04/01/20 04/01/20 04/01/20 12:43 16:30 20:40 Temperature 97.8 F 97.8 F 97.3 F L Pulse Rate 111 H 70 68 Respiratory 18 19 18 Rate Blood Pressure 109/78 124/85 118/81 O2 Sat by Pulse 97 96 Oximetry (%) 04/02/20 04/02/20 05:31 08:42 Temperature 98.2 F 96.9 F L Pulse Rate 76 75 Respiratory 18 18 Rate Blood Pressure 128/81 131/85 O2 Sat by Pulse 100 Oximetry (%) cardiac s1s2 regular rate 75/minutes rhythm respiratory clear lung sounds bilaterally on auscultation no need for ventolin rescue pump abdomen soft no rebound tenderness Pertinent Past History: time for discharge 48 minutes transferred order sent from detox to rehab - Physical Exam Results Vital Signs: Vital Signs Temperature 98.2 F 04/02/20 05:31 Pulse Rate 76 04/02/20 05:31 Respiratory Rate 18 04/02/20 05:31 Blood Pressure 128/81 04/02/20 05:31 O2 Sat by Pulse Oximetry (%) 100 04/02/20 05:31 Pertinent Admission Physical Exam Findings: opiate withdrawal Laboratory Tests 03/28/20 03/29/20 03/29/20 Unknown 08:00 08:00 WBC 2.5 L RBC 4.08 Hgb 12.5 Hct 37.4 MCV 91.7 MCH 30.6 MCHC 33.4 RDW 14.1 D Plt Count 98 L D MPV 11.2 H D Sodium Potassium Chloride Carbon Dioxide Anion Gap BUN Creatinine Est GFR (CKD-EPI)AfAm Est GFR (CKD-EPI)NonAf Random Glucose Calcium Total Bilirubin AST ALT Alkaline Phosphatase Total Protein Albumin Syphilis Serology Non-reactive COVID-19 ([facility]ASIA) Not detected 03/29/20 08:00 WBC RBC Hgb Hct MCV MCH MCHC RDW Plt Count MPV Sodium 141 Potassium 3.9 Chloride 106 Carbon Dioxide 32 Anion Gap 4 L BUN 12.2 Creatinine 0.9 Est GFR (CKD-EPI)AfAm 117.47 Est GFR (CKD-EPI)NonAf 101.35 Random Glucose 90 Calcium 9.0 Total Bilirubin 0.7 AST 30 ALT 33 Alkaline Phosphatase 97 Total Protein 7.6 Albumin 3.7 Syphilis Serology COVID-19 ([facility]ASIA) repeat cbc while in [facility] - Treatment Hospital Course: Detox Protocol Followed, Detoxed Safely, Responded well, Discharged Condition Good, Rehab Referral Accepted Patient has Accepted a Rehab Referral to: [facility] - Medication Discharge Medications: Ambulatory Orders Clonidine HCl [Catapres] 0.2 mg PO BID 02/12/18 Amlodipine Besylate [Norvasc -] 10 mg PO DAILY 09/21/19 Gabapentin [Neurontin] 100 mg PO BID 09/21/19 Albuterol Sulfate Inhaler - [Ventolin HFA Inhaler -] 2 puff IH Q4H PRN #1 inhaler 10/04/19 traZODone HCL [Trazodone HCl] 100 mg PO HS #30 tablet 10/04/19 Olanzapine [Zyprexa] 10 mg PO BID 11/12/19 Buprenorphine/Naloxone [Suboxone 8Mg/2Mg Sl Film -] 1 each SL TID@0600,1400,2200 #21 film MDD 24 12/14/19 Olanzapine [ZyPREXA -] 10 mg PO HS #30 tablet 12/14/19 Sertraline HCl [Zoloft] 100 mg PO DAILY #30 tablet 12/14/19 traZODone HCL [Desyrel -] 100 mg PO HS #30 tablet 12/14/19 - Diagnosis (1) Ambulates with cane Status: Chronic (2) Opioid dependence with withdrawal Status: Acute (3) Thrombocytopenia Status: Chronic (4) Asthma Status: Chronic Qualifiers: Asthma severity: mild Asthma persistence: intermittent Asthma complication type: uncomplicated Qualified Code(s): J45.20 - Mild intermittent asthma, uncomplicated (5) Hypertension Status: Chronic Qualifiers: Hypertension type: unspecified Qualified Code(s): I10 - Essential (primary) hypertension (6) Nicotine dependence Status: Acute Qualifiers: Nicotine product type: cigarettes Substance use status: in withdrawal Qualified Code(s): F17.213 - Nicotine dependence, cigarettes, with withdrawal (7) Schizoaffective disorder, depressive type Status: Suspected (8) Leukocyte disorder Status: Chronic - AMA Did Patient Leave Against Medical Advice: No COWS (PN) - Opiate Withdrawal Resting Pulse: 0= [place] 80 or Below Sweatin= No chills or Flushing Restless Observation: 0= Sits Still Pupil Size: 0= Normal to Room Light Bone or Joint Aches: 0= None Runny Nose/ Eye Tearin= None GI Upset > 30mins: 0= None Tremor Observation of Outstretched Hands: 0= None Yawning Observation: 0= None Anxiety or Irritability: 1=Feels Anxious/Irritable Goose Flesh Skin: 0=Smooth Skin COWS Score: 1
[2020-04-02 09:25] VITALS: BP 131/85; PULSE 75; TEMP 96.9
[2020-04-02] MEDS: GABAPENTIN 100 MG CAPSULE PO SCH (09:26)
[2020-04-02] MEDS: amLODIPine BESYLATE 10 MG TABLET (FP) PO SCH (09:27)
[2020-04-02] MEDS: FAMOTIDINE 20 MG TABLET PO SCH (09:28)
[2020-04-02] MEDS: NICOTINE 7 MG/24 HOURS TOPICAL PATCH TD SCH (09:28)
[2020-04-02] MEDS: PRENATAL VITAMINS W/ FOLIC ACID TABLET (FP) PO SCH (09:29)
== END 2020-04-02 09:31 | disposition home or self-care (01) | DRG 773 ==
LOC: YASAS 17:47 → Y3N 20:14
PROVIDERS: ADMIT Allergy & Immunology; ATTEND Allergy & Immunology
PROC: HZ2ZZZZ Detoxification Services for Substance Abuse Treatment (ICD-10-PCS; principal; 2020-03-28)
DX: F11.23 Opioid dependence with withdrawal (principal); F14.20 Cocaine dependence, uncomplicated; F12.20 Cannabis dependence, uncomplicated; F17.213 Nicotine dependence, cigarettes, with withdrawal; F25.1 Schizoaffective disorder, depressive type; F19.24 Other psychoactive substance dependence with psychoactive substance-induced mood disorder; I10 Essential (primary) hypertension; J45.20 Mild intermittent asthma, uncomplicated; D69.6 Thrombocytopenia, unspecified; G62.9 Polyneuropathy, unspecified; E78.5 Hyperlipidemia, unspecified; D72.9 Disorder of white blood cells, unspecified; G47.00 Insomnia, unspecified; R26.2 Difficulty in walking, not elsewhere classified; Z99.89 Dependence on other enabling machines and devices; Z91.19 Patient's noncompliance with other medical treatment and regimen; Z91.5 Personal history of self-harm; Z56.0 Unemployment, unspecified; Z59.0 Homelessness
CPT/HCPCS: 36415; 80053; 85027; 86780; 93005; 93010; J0735; Q0162; U0003

== ENCOUNTER 2020-10-06 20:49 | Inpatient (IN) | payer OTHER ==
[2020-10-06 22:41] VITALS: BMI 27.9
[2020-10-07] MEDS ORDERED: MAG HYDROX/AL HYDROX/SIMETH 30 ML UNIT-DOSE CUP PO PRN (02:40)
[2020-10-07] MEDS ORDERED: NICOTINE POLACRILEX 2 MG GUM BUC PRN (02:40)
[2020-10-07] MEDS ORDERED: ONDANSETRON *ODT* 4 MG TABLET SL PRN (02:40)
[2020-10-07] MEDS ORDERED: MENTHOL/PHENOL 1 EACH UD MM PRN (02:40)
[2020-10-07] MEDS ORDERED: ACETAMINOPHEN 325 MG TABLET (FP) PO PRN ×2 (02:40)
[2020-10-07] MEDS ORDERED: METHOCARBAMOL 500 MG TABLET PO PRN (02:40)
[2020-10-07] MEDS ORDERED: MAGNESIUM CITRATE 300 ML BOTTLE PO PRN (02:40)
[2020-10-07] MEDS ORDERED: BISMUTH SUBSALICYLATE 524 MG/30 ML UD PO PRN (02:40)
[2020-10-07] MEDS ORDERED: METHADONE HCL 10 MG TABLET (FOR DETOX USE ONLY) PO ONE (02:40)
[2020-10-07] MEDS ORDERED: MAGNESIUM HYDROX 2400MG/30ML ORAL SUSPENSION 30 ML CUP PO PRN (02:40)
[2020-10-07] MEDS ORDERED: IBUPROFEN 400 MG TABLET (FP) PO PRN (02:40)
[2020-10-07] MEDS ORDERED: cloNIDine HCL 0.1 MG TABLET PO PRN (02:40)
[2020-10-07] MEDS ORDERED: ALBUTEROL SO4 HFA INHALER IH PRN (02:45)
[2020-10-07] MEDS: PRENATAL VITAMINS W/ FOLIC ACID TABLET (FP) PO SCH (10:42)
[2020-10-07] MEDS: amLODIPine BESYLATE 10 MG TABLET (FP) PO SCH (10:42)
[2020-10-07] MEDS: NICOTINE 14 MG/24 HOURS TOPICAL PATCH TD SCH (10:44)
[2020-10-07] MEDS: traZODone HCL 100 MG TABLET (FP) PO SCH (22:36)
[2020-10-07] MEDS: BENZTROPINE MESYLATE 1 MG TABLET PO SCH (22:37)
[2020-10-07] MEDS: THIAMINE HCL 100 MG TABLET (FP) PO SCH (22:37)
[2020-10-07] MEDS: MELATONIN 5 MG TABLETS PO SCH (22:37)
[2020-10-07] MEDS: OLANZapine 10 MG TABLET PO SCH (22:37)
[2020-10-08] MEDS ORDERED: METHADONE HCL 5 MG TABLET (FOR DETOX USE ONLY) ONE (08:34)
[2020-10-08] MEDS ORDERED: METHADONE HCL 10 MG TABLET (FOR DETOX USE ONLY) ONE (08:34)
[2020-10-08] MEDS ORDERED: METHADONE (DETOX) 20 MG, METHADONE (DETOX) 5 MG PO ONE (10:00)
[2020-10-08] MEDS: NICOTINE 14 MG/24 HOURS TOPICAL PATCH TD SCH (10:49)
[2020-10-08] MEDS: SERTRALINE HCL 50 MG TABLET (FP) PO SCH (10:49)
[2020-10-08] MEDS: OLANZapine 5 MG TABLET PO SCH (10:49)
[2020-10-08] MEDS: amLODIPine BESYLATE 10 MG TABLET (FP) PO SCH (10:49)
[2020-10-08] MEDS: PRENATAL VITAMINS W/ FOLIC ACID TABLET (FP) PO SCH (10:49)
[2020-10-08 12:07] LABS: POTASSIUM 4.2 mmol/L (3.5-5.1)
[2020-10-08 12:09] LABS: HEMATOCRIT 29.4 % (35.4-49); MCH 31.2 pg (25.7-33.7); MEAN CELL VOLUME 91.8 fl (80-96); MEAN PLT VOLUME 9.2 fl (7.5-11.1); PLATELET COUNT 192 K/MM3 (134-434); RDW 13.9 % (11.9-15.9); WHITE BLOOD COUNT 2.9 K/mm3 (4.0-10.0)
[2020-10-08 12:15] LABS: ALBUMIN 3.5 g/dl (3.4-5.0); BLOOD UREA NITROGEN 15.9 mg/dL (7-18)
[2020-10-08 12:17] LABS: BILIRUBIN,TOTAL 0.7 mg/dL (0.2-1); CALCIUM 8.9 mg/dL (8.5-10.1); TOT PROT 6.6 g/dl (6.4-8.2)
[2020-10-08 12:18] LABS: CREATININE 0.8 mg/dL (0.55-1.3)
[2020-10-08] MEDS ORDERED: traZODone HCL 50 MG TABLET (FP) ONE (21:04)
[2020-10-08] MEDS: OLANZapine 10 MG TABLET PO SCH (22:25)
[2020-10-08] MEDS: BENZTROPINE MESYLATE 1 MG TABLET PO SCH (22:26)
[2020-10-08] MEDS: THIAMINE HCL 100 MG TABLET (FP) PO SCH (22:26)
[2020-10-08] MEDS: traZODone HCL 100 MG TABLET (FP) PO SCH (22:26)
[2020-10-08] MEDS: MELATONIN 5 MG TABLETS PO SCH (23:05)
[2020-10-09] MEDS ORDERED: METHADONE HCL 10 MG TABLET (FOR DETOX USE ONLY) PO ONE (10:00)
[2020-10-09] MEDS: NICOTINE 14 MG/24 HOURS TOPICAL PATCH TD SCH (10:19)
[2020-10-09] MEDS: SERTRALINE HCL 50 MG TABLET (FP) PO SCH (10:19)
[2020-10-09] MEDS: amLODIPine BESYLATE 10 MG TABLET (FP) PO SCH (10:19)
[2020-10-09] MEDS: PRENATAL VITAMINS W/ FOLIC ACID TABLET (FP) PO SCH (11:02)
[2020-10-09] MEDS: OLANZapine 5 MG TABLET PO SCH (11:04)
[2020-10-09] MEDS: BENZTROPINE MESYLATE 1 MG TABLET PO SCH (22:27)
[2020-10-09] MEDS: traZODone HCL 100 MG TABLET (FP) PO SCH (22:27)
[2020-10-09] MEDS: OLANZapine 10 MG TABLET PO SCH (22:27)
[2020-10-09] MEDS: THIAMINE HCL 100 MG TABLET (FP) PO SCH (22:27)
[2020-10-09] MEDS: MELATONIN 5 MG TABLETS PO SCH (22:28)
[2020-10-10] MEDS ORDERED: METHADONE HCL 10 MG TABLET (FOR DETOX USE ONLY) ONE (09:34)
[2020-10-10] MEDS ORDERED: METHADONE HCL 5 MG TABLET (FOR DETOX USE ONLY) ONE (09:34)
[2020-10-10] MEDS ORDERED: METHADONE (DETOX) 10 MG, METHADONE (DETOX) 5 MG PO ONE (10:00)
[2020-10-10] MEDS: amLODIPine BESYLATE 10 MG TABLET (FP) PO SCH (10:24)
[2020-10-10] MEDS: SERTRALINE HCL 50 MG TABLET (FP) PO SCH (10:24)
[2020-10-10] MEDS: OLANZapine 5 MG TABLET PO SCH (10:24)
[2020-10-10] MEDS: NICOTINE 14 MG/24 HOURS TOPICAL PATCH TD SCH (10:26)
[2020-10-10] MEDS: PRENATAL VITAMINS W/ FOLIC ACID TABLET (FP) PO SCH (10:26)
[2020-10-10] MEDS: PANTOPRAZOLE 40 MG TABLET PO SCH (12:09)
[2020-10-10] MEDS: BENZTROPINE MESYLATE 1 MG TABLET PO SCH (23:41)
[2020-10-10] MEDS: traZODone HCL 100 MG TABLET (FP) PO SCH (23:53)
[2020-10-10] MEDS: MELATONIN 5 MG TABLETS PO SCH (23:54)
[2020-10-10] MEDS: OLANZapine 10 MG TABLET PO SCH (23:54)
[2020-10-10] MEDS: THIAMINE HCL 100 MG TABLET (FP) PO SCH (23:54)
[2020-10-11] MEDS ORDERED: METHADONE HCL 10 MG TABLET (FOR DETOX USE ONLY) PO ONE (10:00)
[2020-10-11] MEDS: PANTOPRAZOLE 40 MG TABLET PO SCH (10:25)
[2020-10-11] MEDS: SERTRALINE HCL 50 MG TABLET (FP) PO SCH (10:25)
[2020-10-11] MEDS: PRENATAL VITAMINS W/ FOLIC ACID TABLET (FP) PO SCH (10:25)
[2020-10-11] MEDS: NICOTINE 14 MG/24 HOURS TOPICAL PATCH TD SCH (10:25)
[2020-10-11] MEDS: amLODIPine BESYLATE 10 MG TABLET (FP) PO SCH (10:25)
[2020-10-11] MEDS: OLANZapine 5 MG TABLET PO SCH (11:49)
[2020-10-11] MEDS ORDERED: COLLOIDAL OATMEAL 1 BAR EACH TP PRN (14:06)
[2020-10-11] MEDS: OLANZapine 10 MG TABLET PO SCH (22:08)
[2020-10-11] MEDS: BENZTROPINE MESYLATE 1 MG TABLET PO SCH (22:08)
[2020-10-11] MEDS: traZODone HCL 100 MG TABLET (FP) PO SCH (22:09)
[2020-10-11] MEDS: THIAMINE HCL 100 MG TABLET (FP) PO SCH (22:10)
[2020-10-11] MEDS: MELATONIN 5 MG TABLETS PO SCH (22:11)
[2020-10-12] MEDS ORDERED: METHADONE HCL 5 MG TABLET (FOR DETOX USE ONLY) PO ONE (06:00)
[2020-10-12] MEDS: SERTRALINE HCL 50 MG TABLET (FP) PO SCH (09:18)
[2020-10-12] MEDS: PANTOPRAZOLE 40 MG TABLET PO SCH (09:18)
[2020-10-12] MEDS: OLANZapine 5 MG TABLET PO SCH (09:18)
[2020-10-12] MEDS: amLODIPine BESYLATE 10 MG TABLET (FP) PO SCH (09:18)
[2020-10-12] MEDS: PRENATAL VITAMINS W/ FOLIC ACID TABLET (FP) PO SCH (09:19)
[2020-10-12 09:20] VITALS: TEMP 98.6
[2020-10-12] MEDS: NICOTINE 14 MG/24 HOURS TOPICAL PATCH TD SCH (11:36)
[2020-10-12 14:29] VITALS: BP 139/91; PULSE 89
== END 2020-10-12 15:40 | disposition other institution (70) | DRG 773 ==
LOC: YASAS 20:49 → Y6N 10-07 02:17
PROVIDERS: ADMIT Allergy & Immunology; ATTEND Allergy & Immunology
PROC: HZ2ZZZZ Detoxification Services for Substance Abuse Treatment (ICD-10-PCS; principal; 2020-10-07)
DX: F11.23 Opioid dependence with withdrawal (principal); F14.20 Cocaine dependence, uncomplicated; F17.210 Nicotine dependence, cigarettes, uncomplicated; F19.282 Other psychoactive substance dependence with psychoactive substance-induced sleep disorder; F19.24 Other psychoactive substance dependence with psychoactive substance-induced mood disorder; F25.9 Schizoaffective disorder, unspecified; G62.9 Polyneuropathy, unspecified; D64.9 Anemia, unspecified; I10 Essential (primary) hypertension; J45.20 Mild intermittent asthma, uncomplicated; K21.9 Gastro-esophageal reflux disease without esophagitis; M25.562 Pain in left knee; Z99.89 Dependence on other enabling machines and devices; Z91.5 Personal history of self-harm; Z56.0 Unemployment, unspecified; Z59.0 Homelessness
CPT/HCPCS: 36415; 80053; 85027; 86780; 93005; 93010; C9803; J0735; U0003

== ENCOUNTER 2020-10-12 15:49 | Inpatient (IN) | payer OTHER ==
[2020-10-12] MEDS ORDERED: MAG HYDROX/AL HYDROX/SIMETH 30 ML UNIT-DOSE CUP PO PRN (17:18)
[2020-10-12] MEDS ORDERED: MENTHOL/PHENOL 1 EACH UD MM PRN (17:18)
[2020-10-12] MEDS ORDERED: MAGNESIUM CITRATE 300 ML BOTTLE PO PRN (17:18)
[2020-10-12] MEDS ORDERED: LOPERAMIDE HCL 2 MG CAPSULE PO PRN (17:18)
[2020-10-12] MEDS ORDERED: MAGNESIUM HYDROX 2400MG/30ML ORAL SUSPENSION 30 ML CUP PO PRN (17:18)
[2020-10-12] MEDS ORDERED: ACETAMINOPHEN 325 MG TABLET (FP) PO PRN (17:18)
[2020-10-12] MEDS ORDERED: guaiFENesin 200 MG/10 ML 10 ML UNIT-DOSE CUPS PO PRN (17:18)
[2020-10-12] MEDS ORDERED: P-EPHED 60MG/TRIPROLIDI 2.5MG TABLET PO PRN (17:18)
[2020-10-12] MEDS ORDERED: NICOTINE POLACRILEX 2 MG GUM BUC PRN (17:18)
[2020-10-12] MEDS ORDERED: ALBUTEROL SO4 HFA INHALER IH PRN (17:21)
[2020-10-12] MEDS: MELATONIN 5 MG TABLETS PO SCH (21:14)
[2020-10-12] MEDS: THIAMINE HCL 100 MG TABLET (FP) PO SCH (21:14)
[2020-10-12] MEDS: OLANZapine 10 MG TABLET PO SCH (21:15)
[2020-10-12] MEDS: traZODone HCL 100 MG TABLET (FP) PO SCH (21:15)
[2020-10-12] MEDS: BENZTROPINE MESYLATE 1 MG TABLET PO SCH (21:15)
[2020-10-13] MEDS: hydrOXYzine PAMOATE 25 MG CAPSULE (FP) PO PRN (09:11)
[2020-10-13] MEDS: IBUPROFEN 400 MG TABLET (FP) PO PRN (09:11)
[2020-10-13] MEDS: amLODIPine BESYLATE 10 MG TABLET (FP) PO SCH (09:11)
[2020-10-13] MEDS: PANTOPRAZOLE 40 MG TABLET PO SCH (09:11)
[2020-10-13] MEDS: PRENATAL VITAMINS W/ FOLIC ACID TABLET (FP) PO SCH (09:11)
[2020-10-13] MEDS: SERTRALINE HCL 50 MG TABLET (FP) PO SCH (09:11)
[2020-10-13] MEDS: NICOTINE 21 MG/24 HOURS TOPICAL PATCH TD SCH (09:11)
[2020-10-13] MEDS ORDERED: PATIENT'S OWN MEDICATION (NON-FORMULARY) (Sertraline Hcl [Zoloft] 100 MG Tablet) PO SCH (10:00)
[2020-10-13] MEDS: GABAPENTIN 100 MG CAPSULE PO SCH ×2 (10:26→21:33)
[2020-10-13] MEDS: THIAMINE HCL 100 MG TABLET (FP) PO SCH (21:32)
[2020-10-13] MEDS: OLANZapine 10 MG TABLET PO SCH (21:32)
[2020-10-13] MEDS: BENZTROPINE MESYLATE 1 MG TABLET PO SCH (21:32)
[2020-10-13] MEDS: MELATONIN 5 MG TABLETS PO SCH (21:32)
[2020-10-13] MEDS: traZODone HCL 100 MG TABLET (FP) PO SCH (21:32)
[2020-10-14] MEDS: PRENATAL VITAMINS W/ FOLIC ACID TABLET (FP) PO SCH (09:52)
[2020-10-14] MEDS: SERTRALINE HCL 50 MG TABLET (FP) PO SCH (09:53)
[2020-10-14] MEDS: PANTOPRAZOLE 40 MG TABLET PO SCH (09:53)
[2020-10-14] MEDS: amLODIPine BESYLATE 10 MG TABLET (FP) PO SCH (09:53)
[2020-10-14] MEDS: NICOTINE 21 MG/24 HOURS TOPICAL PATCH TD SCH (09:54)
[2020-10-14] MEDS: GABAPENTIN 100 MG CAPSULE PO SCH ×2 (09:54→21:51)
[2020-10-14] MEDS: hydrOXYzine PAMOATE 25 MG CAPSULE (FP) PO PRN (14:39)
[2020-10-14] MEDS: traZODone HCL 100 MG TABLET (FP) PO SCH (21:51)
[2020-10-14] MEDS: BENZTROPINE MESYLATE 1 MG TABLET PO SCH (21:51)
[2020-10-14] MEDS: MELATONIN 5 MG TABLETS PO SCH (21:51)
[2020-10-14] MEDS: THIAMINE HCL 100 MG TABLET (FP) PO SCH (21:51)
[2020-10-14] MEDS: OLANZapine 10 MG TABLET PO SCH (21:51)
[2020-10-15] MEDS: SERTRALINE HCL 50 MG TABLET (FP) PO SCH (09:52)
[2020-10-15] MEDS: PRENATAL VITAMINS W/ FOLIC ACID TABLET (FP) PO SCH (09:52)
[2020-10-15] MEDS: GABAPENTIN 100 MG CAPSULE PO SCH ×2 (09:53→21:40)
[2020-10-15] MEDS: PANTOPRAZOLE 40 MG TABLET PO SCH (09:53)
[2020-10-15] MEDS: amLODIPine BESYLATE 10 MG TABLET (FP) PO SCH (09:53)
[2020-10-15] MEDS: NICOTINE 21 MG/24 HOURS TOPICAL PATCH TD SCH (09:54)
[2020-10-15] MEDS: hydrOXYzine PAMOATE 25 MG CAPSULE (FP) PO PRN ×2 (13:44→21:41)
[2020-10-15] MEDS: OLANZapine 10 MG TABLET PO SCH (21:40)
[2020-10-15] MEDS: BENZTROPINE MESYLATE 1 MG TABLET PO SCH (21:40)
[2020-10-15] MEDS: THIAMINE HCL 100 MG TABLET (FP) PO SCH (21:40)
[2020-10-15] MEDS: traZODone HCL 100 MG TABLET (FP) PO SCH (21:40)
[2020-10-15] MEDS: MELATONIN 5 MG TABLETS PO SCH (21:40)
[2020-10-16] MEDS: PRENATAL VITAMINS W/ FOLIC ACID TABLET (FP) PO SCH (10:07)
[2020-10-16] MEDS: SERTRALINE HCL 50 MG TABLET (FP) PO SCH (10:07)
[2020-10-16] MEDS: amLODIPine BESYLATE 10 MG TABLET (FP) PO SCH (10:08)
[2020-10-16] MEDS: PANTOPRAZOLE 40 MG TABLET PO SCH (10:08)
[2020-10-16] MEDS: GABAPENTIN 100 MG CAPSULE PO SCH ×2 (10:09→21:26)
[2020-10-16] MEDS: hydrOXYzine PAMOATE 25 MG CAPSULE (FP) PO PRN ×2 (10:09→21:26)
[2020-10-16] MEDS: NICOTINE 21 MG/24 HOURS TOPICAL PATCH TD SCH (10:09)
[2020-10-16] MEDS ORDERED: BUPRENORPHINE/NALOXONE 2 MG/0.5 MG FILM PACKET SL ONE (15:09)
[2020-10-16] MEDS: OLANZapine 10 MG TABLET PO SCH (21:26)
[2020-10-16] MEDS: MELATONIN 5 MG TABLETS PO SCH (21:26)
[2020-10-16] MEDS: traZODone HCL 100 MG TABLET (FP) PO SCH (21:26)
[2020-10-16] MEDS: BENZTROPINE MESYLATE 1 MG TABLET PO SCH (21:26)
[2020-10-16] MEDS: THIAMINE HCL 100 MG TABLET (FP) PO SCH (21:26)
[2020-10-17] MEDS ORDERED: MASKS NR ONE (01:04)
[2020-10-17] MEDS: PANTOPRAZOLE 40 MG TABLET PO SCH (10:01)
[2020-10-17] MEDS: SERTRALINE HCL 50 MG TABLET (FP) PO SCH (10:01)
[2020-10-17] MEDS: amLODIPine BESYLATE 10 MG TABLET (FP) PO SCH (10:01)
[2020-10-17] MEDS: NICOTINE 21 MG/24 HOURS TOPICAL PATCH TD SCH (10:01)
[2020-10-17] MEDS: PRENATAL VITAMINS W/ FOLIC ACID TABLET (FP) PO SCH (10:01)
[2020-10-17] MEDS: GABAPENTIN 100 MG CAPSULE PO SCH ×2 (10:03→21:33)
[2020-10-17] MEDS ORDERED: BUPRENORPHINE/NALOXONE 4 MG/1 MG FILM PACKET SL SCH (10:15)
[2020-10-17] MEDS ORDERED: COLLOIDAL OATMEAL 1 BAR EACH TP PRN (12:19)
[2020-10-17] MEDS: OLANZapine 10 MG TABLET PO SCH (21:33)
[2020-10-17] MEDS: traZODone HCL 100 MG TABLET (FP) PO SCH (21:33)
[2020-10-17] MEDS: THIAMINE HCL 100 MG TABLET (FP) PO SCH (21:33)
[2020-10-17] MEDS: BENZTROPINE MESYLATE 1 MG TABLET PO SCH (21:34)
[2020-10-17] MEDS: MELATONIN 5 MG TABLETS PO SCH (21:34)
[2020-10-18] MEDS: PANTOPRAZOLE 40 MG TABLET PO SCH (09:53)
[2020-10-18] MEDS: amLODIPine BESYLATE 10 MG TABLET (FP) PO SCH (09:53)
[2020-10-18] MEDS: hydrOXYzine PAMOATE 25 MG CAPSULE (FP) PO PRN ×2 (09:53→21:23)
[2020-10-18] MEDS: SERTRALINE HCL 50 MG TABLET (FP) PO SCH (09:53)
[2020-10-18] MEDS: GABAPENTIN 100 MG CAPSULE PO SCH ×2 (09:54→21:24)
[2020-10-18] MEDS: NICOTINE 21 MG/24 HOURS TOPICAL PATCH TD SCH (09:54)
[2020-10-18] MEDS: PRENATAL VITAMINS W/ FOLIC ACID TABLET (FP) PO SCH (09:54)
[2020-10-18] MEDS ORDERED: BUPRENORPHINE/NALOXONE 8 MG/2 MG FILM PACKET SL ONE (10:00)
[2020-10-18] MEDS: FERROUS SO4 325 MG TABLET (FP) PO SCH (17:41)
[2020-10-18] MEDS: BUPRENORPHINE/NALOXONE 4 MG/1 MG FILM PACKET SL SCH (17:42)
[2020-10-18] MEDS: traZODone HCL 100 MG TABLET (FP) PO SCH (21:23)
[2020-10-18] MEDS: THIAMINE HCL 100 MG TABLET (FP) PO SCH (21:23)
[2020-10-18] MEDS: OLANZapine 10 MG TABLET PO SCH (21:23)
[2020-10-18] MEDS: MELATONIN 5 MG TABLETS PO SCH (21:23)
[2020-10-18] MEDS: BENZTROPINE MESYLATE 1 MG TABLET PO SCH (21:23)
[2020-10-19] MEDS: BUPRENORPHINE/NALOXONE 8 MG/2 MG FILM PACKET SL SCH (06:59)
[2020-10-19] MEDS: FERROUS SO4 325 MG TABLET (FP) PO SCH ×2 (06:59→18:12)
[2020-10-19] MEDS: amLODIPine BESYLATE 10 MG TABLET (FP) PO SCH (09:55)
[2020-10-19] MEDS: SERTRALINE HCL 50 MG TABLET (FP) PO SCH (09:55)
[2020-10-19] MEDS: NICOTINE 21 MG/24 HOURS TOPICAL PATCH TD SCH (09:55)
[2020-10-19] MEDS: PRENATAL VITAMINS W/ FOLIC ACID TABLET (FP) PO SCH (09:55)
[2020-10-19] MEDS: PANTOPRAZOLE 40 MG TABLET PO SCH (09:55)
[2020-10-19] MEDS: GABAPENTIN 100 MG CAPSULE PO SCH ×2 (09:55→21:20)
[2020-10-19] MEDS: BUPRENORPHINE/NALOXONE 4 MG/1 MG FILM PACKET SL SCH (18:13)
[2020-10-19] MEDS: OLANZapine 10 MG TABLET PO SCH (21:20)
[2020-10-19] MEDS: hydrOXYzine PAMOATE 25 MG CAPSULE (FP) PO PRN (21:20)
[2020-10-19] MEDS: traZODone HCL 100 MG TABLET (FP) PO SCH (21:20)
[2020-10-19] MEDS: MELATONIN 5 MG TABLETS PO SCH (21:20)
[2020-10-19] MEDS: THIAMINE HCL 100 MG TABLET (FP) PO SCH (21:20)
[2020-10-19] MEDS: BENZTROPINE MESYLATE 1 MG TABLET PO SCH (21:20)
[2020-10-20] MEDS: BUPRENORPHINE/NALOXONE 8 MG/2 MG FILM PACKET SL SCH (06:36)
[2020-10-20] MEDS: FERROUS SO4 325 MG TABLET (FP) PO SCH ×2 (07:33→17:29)
[2020-10-20] MEDS: SERTRALINE HCL 50 MG TABLET (FP) PO SCH (09:45)
[2020-10-20] MEDS: amLODIPine BESYLATE 10 MG TABLET (FP) PO SCH (09:45)
[2020-10-20] MEDS: PANTOPRAZOLE 40 MG TABLET PO SCH (09:45)
[2020-10-20] MEDS: GABAPENTIN 100 MG CAPSULE PO SCH ×2 (09:45→21:22)
[2020-10-20] MEDS: PRENATAL VITAMINS W/ FOLIC ACID TABLET (FP) PO SCH (09:45)
[2020-10-20] MEDS: NICOTINE 21 MG/24 HOURS TOPICAL PATCH TD SCH (09:46)
[2020-10-20] MEDS ORDERED: BUPRENORPHINE/NALOXONE 8 MG/2 MG FILM PACKET SL ONE (18:00)
[2020-10-20] MEDS: OLANZapine 10 MG TABLET PO SCH (21:22)
[2020-10-20] MEDS: THIAMINE HCL 100 MG TABLET (FP) PO SCH (21:22)
[2020-10-20] MEDS: BENZTROPINE MESYLATE 1 MG TABLET PO SCH (21:22)
[2020-10-20] MEDS: traZODone HCL 100 MG TABLET (FP) PO SCH (21:22)
[2020-10-20] MEDS: MELATONIN 5 MG TABLETS PO SCH (21:22)
[2020-10-21] MEDS: hydrOXYzine PAMOATE 25 MG CAPSULE (FP) PO PRN ×2 (04:29→21:21)
[2020-10-21] MEDS: BUPRENORPHINE/NALOXONE 8 MG/2 MG FILM PACKET SL SCH ×2 (06:42→17:40)
[2020-10-21] MEDS: FERROUS SO4 325 MG TABLET (FP) PO SCH ×2 (07:13→17:41)
[2020-10-21] MEDS: GABAPENTIN 100 MG CAPSULE PO SCH ×2 (09:48→21:21)
[2020-10-21] MEDS: PANTOPRAZOLE 40 MG TABLET PO SCH (09:48)
[2020-10-21] MEDS: SERTRALINE HCL 50 MG TABLET (FP) PO SCH (09:48)
[2020-10-21] MEDS: PRENATAL VITAMINS W/ FOLIC ACID TABLET (FP) PO SCH (09:48)
[2020-10-21] MEDS: amLODIPine BESYLATE 10 MG TABLET (FP) PO SCH (09:48)
[2020-10-21] MEDS: NICOTINE 21 MG/24 HOURS TOPICAL PATCH TD SCH (09:49)
[2020-10-21 13:19] LABS: HEMATOCRIT 33.9 % (35.4-49); HEMOGLOBIN 11.4 GM/dL (11.7-16.9); MCH 30.4 pg (25.7-33.7); MCHC 33.6 g/dl (32.0-35.9); MEAN CELL VOLUME 90.6 fl (80-96); PLATELET COUNT 169 K/MM3 (134-434); RBC 3.74 M/mm3 (4.00-5.60); RDW 13.6 % (11.9-15.9)
[2020-10-21] MEDS: BENZTROPINE MESYLATE 1 MG TABLET PO SCH (21:21)
[2020-10-21] MEDS: traZODone HCL 100 MG TABLET (FP) PO SCH (21:21)
[2020-10-21] MEDS: THIAMINE HCL 100 MG TABLET (FP) PO SCH (21:21)
[2020-10-21] MEDS: OLANZapine 10 MG TABLET PO SCH (21:22)
[2020-10-21] MEDS: MELATONIN 5 MG TABLETS PO SCH (21:22)
[2020-10-22] MEDS: BUPRENORPHINE/NALOXONE 8 MG/2 MG FILM PACKET SL SCH ×2 (06:36→17:36)
[2020-10-22] MEDS: FERROUS SO4 325 MG TABLET (FP) PO SCH ×2 (07:11→17:35)
[2020-10-22] MEDS: amLODIPine BESYLATE 10 MG TABLET (FP) PO SCH (09:29)
[2020-10-22] MEDS: SERTRALINE HCL 50 MG TABLET (FP) PO SCH (09:29)
[2020-10-22] MEDS: PRENATAL VITAMINS W/ FOLIC ACID TABLET (FP) PO SCH (09:29)
[2020-10-22] MEDS: GABAPENTIN 100 MG CAPSULE PO SCH ×2 (09:29→21:42)
[2020-10-22] MEDS: PANTOPRAZOLE 40 MG TABLET PO SCH (09:29)
[2020-10-22] MEDS: NICOTINE 21 MG/24 HOURS TOPICAL PATCH TD SCH (09:30)
[2020-10-22] MEDS: MELATONIN 5 MG TABLETS PO SCH (21:42)
[2020-10-22] MEDS: THIAMINE HCL 100 MG TABLET (FP) PO SCH (21:42)
[2020-10-22] MEDS: traZODone HCL 100 MG TABLET (FP) PO SCH (21:42)
[2020-10-22] MEDS: hydrOXYzine PAMOATE 25 MG CAPSULE (FP) PO PRN (21:42)
[2020-10-22] MEDS: BENZTROPINE MESYLATE 1 MG TABLET PO SCH (21:42)
[2020-10-22] MEDS: OLANZapine 10 MG TABLET PO SCH (21:42)
[2020-10-23] MEDS: BUPRENORPHINE/NALOXONE 8 MG/2 MG FILM PACKET SL SCH ×2 (06:44→17:34)
[2020-10-23] MEDS: FERROUS SO4 325 MG TABLET (FP) PO SCH ×2 (07:07→17:34)
[2020-10-23] MEDS ORDERED: COLLOIDAL OATMEAL 1 BAR EACH TP PRN (09:57)
[2020-10-23] MEDS: GABAPENTIN 100 MG CAPSULE PO SCH ×2 (10:08→21:20)
[2020-10-23] MEDS: SERTRALINE HCL 50 MG TABLET (FP) PO SCH (10:08)
[2020-10-23] MEDS: PANTOPRAZOLE 40 MG TABLET PO SCH (10:08)
[2020-10-23] MEDS: PRENATAL VITAMINS W/ FOLIC ACID TABLET (FP) PO SCH (10:08)
[2020-10-23] MEDS: amLODIPine BESYLATE 10 MG TABLET (FP) PO SCH (10:08)
[2020-10-23] MEDS: NICOTINE 21 MG/24 HOURS TOPICAL PATCH TD SCH (10:08)
[2020-10-23] MEDS: MELATONIN 5 MG TABLETS PO SCH (21:20)
[2020-10-23] MEDS: OLANZapine 10 MG TABLET PO SCH (21:20)
[2020-10-23] MEDS: traZODone HCL 100 MG TABLET (FP) PO SCH (21:20)
[2020-10-23] MEDS: BENZTROPINE MESYLATE 1 MG TABLET PO SCH (21:20)
[2020-10-23] MEDS: THIAMINE HCL 100 MG TABLET (FP) PO SCH (21:20)
[2020-10-24] MEDS: BUPRENORPHINE/NALOXONE 8 MG/2 MG FILM PACKET SL SCH ×2 (06:17→18:40)
[2020-10-24] MEDS: FERROUS SO4 325 MG TABLET (FP) PO SCH ×2 (07:23→18:40)
[2020-10-24] MEDS: PRENATAL VITAMINS W/ FOLIC ACID TABLET (FP) PO SCH (10:01)
[2020-10-24] MEDS: GABAPENTIN 100 MG CAPSULE PO SCH ×2 (10:01→21:28)
[2020-10-24] MEDS: SERTRALINE HCL 50 MG TABLET (FP) PO SCH (10:01)
[2020-10-24] MEDS: amLODIPine BESYLATE 10 MG TABLET (FP) PO SCH (10:01)
[2020-10-24] MEDS: NICOTINE 21 MG/24 HOURS TOPICAL PATCH TD SCH (10:01)
[2020-10-24] MEDS: PANTOPRAZOLE 40 MG TABLET PO SCH (10:01)
[2020-10-24] MEDS: OLANZapine 10 MG TABLET PO SCH (21:28)
[2020-10-24] MEDS: hydrOXYzine PAMOATE 25 MG CAPSULE (FP) PO PRN (21:28)
[2020-10-24] MEDS: traZODone HCL 100 MG TABLET (FP) PO SCH (21:28)
[2020-10-24] MEDS: MELATONIN 5 MG TABLETS PO SCH (21:28)
[2020-10-24] MEDS: BENZTROPINE MESYLATE 1 MG TABLET PO SCH (21:28)
[2020-10-24] MEDS: THIAMINE HCL 100 MG TABLET (FP) PO SCH (21:28)
[2020-10-25] MEDS: BUPRENORPHINE/NALOXONE 8 MG/2 MG FILM PACKET SL SCH ×2 (06:31→17:20)
[2020-10-25] MEDS: FERROUS SO4 325 MG TABLET (FP) PO SCH ×2 (07:04→17:19)
[2020-10-25] MEDS: PRENATAL VITAMINS W/ FOLIC ACID TABLET (FP) PO SCH (10:07)
[2020-10-25] MEDS: amLODIPine BESYLATE 10 MG TABLET (FP) PO SCH (10:07)
[2020-10-25] MEDS: NICOTINE 21 MG/24 HOURS TOPICAL PATCH TD SCH (10:07)
[2020-10-25] MEDS: PANTOPRAZOLE 40 MG TABLET PO SCH (10:07)
[2020-10-25] MEDS: GABAPENTIN 100 MG CAPSULE PO SCH ×2 (10:07→21:29)
[2020-10-25] MEDS: SERTRALINE HCL 50 MG TABLET (FP) PO SCH (10:07)
[2020-10-25] MEDS: BENZTROPINE MESYLATE 1 MG TABLET PO SCH (21:29)
[2020-10-25] MEDS: THIAMINE HCL 100 MG TABLET (FP) PO SCH (21:29)
[2020-10-25] MEDS: traZODone HCL 100 MG TABLET (FP) PO SCH (21:29)
[2020-10-25] MEDS: MELATONIN 5 MG TABLETS PO SCH (21:29)
[2020-10-25] MEDS: OLANZapine 10 MG TABLET PO SCH (21:29)
[2020-10-26] MEDS: BUPRENORPHINE/NALOXONE 8 MG/2 MG FILM PACKET SL SCH ×2 (06:09→17:22)
[2020-10-26] MEDS: FERROUS SO4 325 MG TABLET (FP) PO SCH ×2 (07:07→17:22)
[2020-10-26] MEDS: hydrOXYzine PAMOATE 25 MG CAPSULE (FP) PO PRN ×2 (10:31→21:27)
[2020-10-26] MEDS: PANTOPRAZOLE 40 MG TABLET PO SCH (10:31)
[2020-10-26] MEDS: SERTRALINE HCL 50 MG TABLET (FP) PO SCH (10:31)
[2020-10-26] MEDS: amLODIPine BESYLATE 10 MG TABLET (FP) PO SCH (10:31)
[2020-10-26] MEDS: GABAPENTIN 100 MG CAPSULE PO SCH ×2 (10:31→21:27)
[2020-10-26] MEDS: PRENATAL VITAMINS W/ FOLIC ACID TABLET (FP) PO SCH (10:32)
[2020-10-26] MEDS: NICOTINE 21 MG/24 HOURS TOPICAL PATCH TD SCH (10:33)
[2020-10-26] MEDS: traZODone HCL 100 MG TABLET (FP) PO SCH (21:27)
[2020-10-26] MEDS: MELATONIN 5 MG TABLETS PO SCH (21:27)
[2020-10-26] MEDS: BENZTROPINE MESYLATE 1 MG TABLET PO SCH (21:27)
[2020-10-26] MEDS: OLANZapine 10 MG TABLET PO SCH (21:27)
[2020-10-26] MEDS: THIAMINE HCL 100 MG TABLET (FP) PO SCH (21:27)
[2020-10-27] MEDS: BUPRENORPHINE/NALOXONE 8 MG/2 MG FILM PACKET SL SCH ×2 (06:24→17:34)
[2020-10-27] MEDS: FERROUS SO4 325 MG TABLET (FP) PO SCH ×2 (07:18→17:34)
[2020-10-27] MEDS: PRENATAL VITAMINS W/ FOLIC ACID TABLET (FP) PO SCH (09:57)
[2020-10-27] MEDS: PANTOPRAZOLE 40 MG TABLET PO SCH (09:58)
[2020-10-27] MEDS: SERTRALINE HCL 50 MG TABLET (FP) PO SCH (09:58)
[2020-10-27] MEDS: amLODIPine BESYLATE 10 MG TABLET (FP) PO SCH (09:58)
[2020-10-27] MEDS: GABAPENTIN 100 MG CAPSULE PO SCH ×2 (09:58→21:34)
[2020-10-27] MEDS: NICOTINE 21 MG/24 HOURS TOPICAL PATCH TD SCH (09:58)
[2020-10-27] MEDS: OLANZapine 10 MG TABLET PO SCH (21:33)
[2020-10-27] MEDS: traZODone HCL 100 MG TABLET (FP) PO SCH (21:33)
[2020-10-27] MEDS: MELATONIN 5 MG TABLETS PO SCH (21:34)
[2020-10-27] MEDS: THIAMINE HCL 100 MG TABLET (FP) PO SCH (21:34)
[2020-10-27] MEDS: BENZTROPINE MESYLATE 1 MG TABLET PO SCH (21:34)
[2020-10-27] MEDS: hydrOXYzine PAMOATE 25 MG CAPSULE (FP) PO PRN (21:34)
[2020-10-28] MEDS: BUPRENORPHINE/NALOXONE 8 MG/2 MG FILM PACKET SL SCH ×2 (06:00→17:39)
[2020-10-28] MEDS: FERROUS SO4 325 MG TABLET (FP) PO SCH ×2 (07:11→17:40)
[2020-10-28] MEDS: amLODIPine BESYLATE 10 MG TABLET (FP) PO SCH (10:17)
[2020-10-28] MEDS: NICOTINE 21 MG/24 HOURS TOPICAL PATCH TD SCH (10:17)
[2020-10-28] MEDS: SERTRALINE HCL 50 MG TABLET (FP) PO SCH (10:17)
[2020-10-28] MEDS: GABAPENTIN 100 MG CAPSULE PO SCH ×2 (10:17→21:28)
[2020-10-28] MEDS: PRENATAL VITAMINS W/ FOLIC ACID TABLET (FP) PO SCH (10:18)
[2020-10-28] MEDS: PANTOPRAZOLE 40 MG TABLET PO SCH (10:18)
[2020-10-28] MEDS: BENZTROPINE MESYLATE 1 MG TABLET PO SCH (21:28)
[2020-10-28] MEDS: MELATONIN 5 MG TABLETS PO SCH (21:28)
[2020-10-28] MEDS: OLANZapine 10 MG TABLET PO SCH (21:28)
[2020-10-28] MEDS: THIAMINE HCL 100 MG TABLET (FP) PO SCH (21:28)
[2020-10-28] MEDS: traZODone HCL 100 MG TABLET (FP) PO SCH (21:28)
[2020-10-28] MEDS: hydrOXYzine PAMOATE 25 MG CAPSULE (FP) PO PRN (21:28)
[2020-10-29] MEDS: BUPRENORPHINE/NALOXONE 8 MG/2 MG FILM PACKET SL SCH ×2 (06:03→17:42)
[2020-10-29] MEDS: FERROUS SO4 325 MG TABLET (FP) PO SCH ×2 (07:10→17:42)
[2020-10-29] MEDS: NICOTINE 21 MG/24 HOURS TOPICAL PATCH TD SCH (10:43)
[2020-10-29] MEDS: PRENATAL VITAMINS W/ FOLIC ACID TABLET (FP) PO SCH (10:46)
[2020-10-29] MEDS: PANTOPRAZOLE 40 MG TABLET PO SCH (10:46)
[2020-10-29] MEDS: GABAPENTIN 100 MG CAPSULE PO SCH ×2 (10:46→21:42)
[2020-10-29] MEDS: SERTRALINE HCL 50 MG TABLET (FP) PO SCH (10:46)
[2020-10-29] MEDS: amLODIPine BESYLATE 10 MG TABLET (FP) PO SCH (10:46)
[2020-10-29] MEDS: THIAMINE HCL 100 MG TABLET (FP) PO SCH (21:42)
[2020-10-29] MEDS: OLANZapine 10 MG TABLET PO SCH (21:42)
[2020-10-29] MEDS: MELATONIN 5 MG TABLETS PO SCH (21:42)
[2020-10-29] MEDS: traZODone HCL 100 MG TABLET (FP) PO SCH (21:42)
[2020-10-29] MEDS: BENZTROPINE MESYLATE 1 MG TABLET PO SCH (21:42)
[2020-10-30] MEDS: FERROUS SO4 325 MG TABLET (FP) PO SCH ×2 (07:10→17:39)
[2020-10-30] MEDS: BUPRENORPHINE/NALOXONE 8 MG/2 MG FILM PACKET SL SCH ×2 (07:10→17:40)
[2020-10-30] MEDS: NICOTINE 21 MG/24 HOURS TOPICAL PATCH TD SCH (10:00)
[2020-10-30] MEDS: PRENATAL VITAMINS W/ FOLIC ACID TABLET (FP) PO SCH (10:00)
[2020-10-30] MEDS: SERTRALINE HCL 50 MG TABLET (FP) PO SCH (10:01)
[2020-10-30] MEDS: GABAPENTIN 100 MG CAPSULE PO SCH ×2 (10:01→21:30)
[2020-10-30] MEDS: amLODIPine BESYLATE 10 MG TABLET (FP) PO SCH (10:01)
[2020-10-30] MEDS: PANTOPRAZOLE 40 MG TABLET PO SCH (10:01)
[2020-10-30] MEDS: MELATONIN 5 MG TABLETS PO SCH (21:30)
[2020-10-30] MEDS: hydrOXYzine PAMOATE 25 MG CAPSULE (FP) PO PRN (21:30)
[2020-10-30] MEDS: THIAMINE HCL 100 MG TABLET (FP) PO SCH (21:30)
[2020-10-30] MEDS: OLANZapine 10 MG TABLET PO SCH (21:30)
[2020-10-30] MEDS: traZODone HCL 100 MG TABLET (FP) PO SCH (21:30)
[2020-10-30] MEDS: BENZTROPINE MESYLATE 1 MG TABLET PO SCH (21:30)
[2020-10-31] MEDS: BUPRENORPHINE/NALOXONE 8 MG/2 MG FILM PACKET SL SCH ×2 (06:25→17:34)
[2020-10-31] MEDS: IBUPROFEN 400 MG TABLET (FP) PO PRN (06:25)
[2020-10-31] MEDS: FERROUS SO4 325 MG TABLET (FP) PO SCH ×2 (07:04→17:30)
[2020-10-31] MEDS: NICOTINE 21 MG/24 HOURS TOPICAL PATCH TD SCH (10:08)
[2020-10-31] MEDS: GABAPENTIN 100 MG CAPSULE PO SCH ×2 (10:08→21:25)
[2020-10-31] MEDS: PANTOPRAZOLE 40 MG TABLET PO SCH (10:08)
[2020-10-31] MEDS: amLODIPine BESYLATE 10 MG TABLET (FP) PO SCH (10:08)
[2020-10-31] MEDS: SERTRALINE HCL 50 MG TABLET (FP) PO SCH (10:08)
[2020-10-31] MEDS: PRENATAL VITAMINS W/ FOLIC ACID TABLET (FP) PO SCH (10:08)
[2020-10-31] MEDS ORDERED: COLLOIDAL OATMEAL 1 BAR EACH TP PRN (10:32)
[2020-10-31] MEDS: THIAMINE HCL 100 MG TABLET (FP) PO SCH (21:24)
[2020-10-31] MEDS: OLANZapine 10 MG TABLET PO SCH (21:24)
[2020-10-31] MEDS: hydrOXYzine PAMOATE 25 MG CAPSULE (FP) PO PRN (21:24)
[2020-10-31] MEDS: BENZTROPINE MESYLATE 1 MG TABLET PO SCH (21:24)
[2020-10-31] MEDS: traZODone HCL 50 MG TABLET (FP) PO SCH (21:24)
[2020-10-31] MEDS: MELATONIN 5 MG TABLETS PO SCH (21:25)
[2020-11-01] MEDS: BUPRENORPHINE/NALOXONE 8 MG/2 MG FILM PACKET SL SCH ×2 (06:41→17:54)
[2020-11-01] MEDS: FERROUS SO4 325 MG TABLET (FP) PO SCH ×2 (07:22→17:54)
[2020-11-01] MEDS: PRENATAL VITAMINS W/ FOLIC ACID TABLET (FP) PO SCH (09:52)
[2020-11-01] MEDS: amLODIPine BESYLATE 10 MG TABLET (FP) PO SCH (09:52)
[2020-11-01] MEDS: SERTRALINE HCL 50 MG TABLET (FP) PO SCH (09:52)
[2020-11-01] MEDS: IBUPROFEN 400 MG TABLET (FP) PO PRN (09:52)
[2020-11-01] MEDS: GABAPENTIN 100 MG CAPSULE PO SCH ×2 (09:52→21:38)
[2020-11-01] MEDS: PANTOPRAZOLE 40 MG TABLET PO SCH (09:52)
[2020-11-01] MEDS: NICOTINE 21 MG/24 HOURS TOPICAL PATCH TD SCH (11:13)
[2020-11-01] MEDS: BENZTROPINE MESYLATE 1 MG TABLET PO SCH (21:38)
[2020-11-01] MEDS: MELATONIN 5 MG TABLETS PO SCH (21:38)
[2020-11-01] MEDS: THIAMINE HCL 100 MG TABLET (FP) PO SCH (21:38)
[2020-11-01] MEDS: hydrOXYzine PAMOATE 25 MG CAPSULE (FP) PO PRN (21:38)
[2020-11-01] MEDS: traZODone HCL 50 MG TABLET (FP) PO SCH (21:38)
[2020-11-01] MEDS: OLANZapine 10 MG TABLET PO SCH (21:38)
[2020-11-02] MEDS: BUPRENORPHINE/NALOXONE 8 MG/2 MG FILM PACKET SL SCH ×2 (06:23→17:42)
[2020-11-02] MEDS: FERROUS SO4 325 MG TABLET (FP) PO SCH ×2 (07:15→17:42)
[2020-11-02] MEDS: PRENATAL VITAMINS W/ FOLIC ACID TABLET (FP) PO SCH (09:47)
[2020-11-02] MEDS: GABAPENTIN 100 MG CAPSULE PO SCH ×2 (09:47→21:36)
[2020-11-02] MEDS: PANTOPRAZOLE 40 MG TABLET PO SCH (09:47)
[2020-11-02] MEDS: SERTRALINE HCL 50 MG TABLET (FP) PO SCH (09:47)
[2020-11-02] MEDS: amLODIPine BESYLATE 10 MG TABLET (FP) PO SCH (09:47)
[2020-11-02] MEDS: NICOTINE 21 MG/24 HOURS TOPICAL PATCH TD SCH (09:47)
[2020-11-02] MEDS: OLANZapine 10 MG TABLET PO SCH (21:36)
[2020-11-02] MEDS: MELATONIN 5 MG TABLETS PO SCH (21:36)
[2020-11-02] MEDS: hydrOXYzine PAMOATE 25 MG CAPSULE (FP) PO PRN (21:36)
[2020-11-02] MEDS: THIAMINE HCL 100 MG TABLET (FP) PO SCH (21:36)
[2020-11-02] MEDS: traZODone HCL 50 MG TABLET (FP) PO SCH (21:36)
[2020-11-02] MEDS: BENZTROPINE MESYLATE 1 MG TABLET PO SCH (21:36)
[2020-11-03] MEDS: BUPRENORPHINE/NALOXONE 8 MG/2 MG FILM PACKET SL SCH ×2 (06:42→17:23)
[2020-11-03] MEDS: FERROUS SO4 325 MG TABLET (FP) PO SCH ×2 (07:17→17:23)
[2020-11-03] MEDS: PRENATAL VITAMINS W/ FOLIC ACID TABLET (FP) PO SCH (10:25)
[2020-11-03] MEDS: PANTOPRAZOLE 40 MG TABLET PO SCH (10:25)
[2020-11-03] MEDS: SERTRALINE HCL 50 MG TABLET (FP) PO SCH (10:25)
[2020-11-03] MEDS: amLODIPine BESYLATE 10 MG TABLET (FP) PO SCH (10:26)
[2020-11-03] MEDS: GABAPENTIN 100 MG CAPSULE PO SCH ×2 (10:26→21:56)
[2020-11-03] MEDS: NICOTINE 21 MG/24 HOURS TOPICAL PATCH TD SCH (10:26)
[2020-11-03] MEDS: MELATONIN 5 MG TABLETS PO SCH (21:53)
[2020-11-03] MEDS: THIAMINE HCL 100 MG TABLET (FP) PO SCH (21:53)
[2020-11-03] MEDS: traZODone HCL 50 MG TABLET (FP) PO SCH (21:56)
[2020-11-03] MEDS: hydrOXYzine PAMOATE 25 MG CAPSULE (FP) PO PRN (21:56)
[2020-11-03] MEDS: OLANZapine 10 MG TABLET PO SCH (21:56)
[2020-11-03] MEDS: BENZTROPINE MESYLATE 1 MG TABLET PO SCH (21:56)
[2020-11-04] MEDS: BUPRENORPHINE/NALOXONE 8 MG/2 MG FILM PACKET SL SCH ×2 (06:16→17:36)
[2020-11-04] MEDS: FERROUS SO4 325 MG TABLET (FP) PO SCH ×2 (07:12→17:36)
[2020-11-04] MEDS: GABAPENTIN 100 MG CAPSULE PO SCH ×2 (10:30→21:47)
[2020-11-04] MEDS: amLODIPine BESYLATE 10 MG TABLET (FP) PO SCH (10:30)
[2020-11-04] MEDS: PANTOPRAZOLE 40 MG TABLET PO SCH (10:30)
[2020-11-04] MEDS: PRENATAL VITAMINS W/ FOLIC ACID TABLET (FP) PO SCH (10:30)
[2020-11-04] MEDS: SERTRALINE HCL 50 MG TABLET (FP) PO SCH (10:30)
[2020-11-04] MEDS: NICOTINE 21 MG/24 HOURS TOPICAL PATCH TD SCH (10:31)
[2020-11-04] MEDS: BENZTROPINE MESYLATE 1 MG TABLET PO SCH (21:47)
[2020-11-04] MEDS: THIAMINE HCL 100 MG TABLET (FP) PO SCH (21:47)
[2020-11-04] MEDS: hydrOXYzine PAMOATE 25 MG CAPSULE (FP) PO PRN (21:47)
[2020-11-04] MEDS: traZODone HCL 50 MG TABLET (FP) PO SCH (21:47)
[2020-11-04] MEDS: MELATONIN 5 MG TABLETS PO SCH (21:47)
[2020-11-04] MEDS: OLANZapine 10 MG TABLET PO SCH (21:47)
[2020-11-05] MEDS: BUPRENORPHINE/NALOXONE 8 MG/2 MG FILM PACKET SL SCH ×2 (06:17→18:12)
[2020-11-05] MEDS: FERROUS SO4 325 MG TABLET (FP) PO SCH ×2 (08:35→18:12)
[2020-11-05] MEDS: hydrOXYzine PAMOATE 25 MG CAPSULE (FP) PO PRN ×2 (10:13→21:18)
[2020-11-05] MEDS: amLODIPine BESYLATE 10 MG TABLET (FP) PO SCH (10:13)
[2020-11-05] MEDS: GABAPENTIN 100 MG CAPSULE PO SCH ×2 (10:13→21:18)
[2020-11-05] MEDS: PRENATAL VITAMINS W/ FOLIC ACID TABLET (FP) PO SCH (10:13)
[2020-11-05] MEDS: SERTRALINE HCL 50 MG TABLET (FP) PO SCH (10:13)
[2020-11-05] MEDS: NICOTINE 21 MG/24 HOURS TOPICAL PATCH TD SCH (10:13)
[2020-11-05] MEDS: PANTOPRAZOLE 40 MG TABLET PO SCH (10:13)
[2020-11-05] MEDS: MELATONIN 5 MG TABLETS PO SCH (21:18)
[2020-11-05] MEDS: OLANZapine 10 MG TABLET PO SCH (21:18)
[2020-11-05] MEDS: BENZTROPINE MESYLATE 1 MG TABLET PO SCH (21:18)
[2020-11-05] MEDS: THIAMINE HCL 100 MG TABLET (FP) PO SCH (21:18)
[2020-11-05] MEDS: traZODone HCL 50 MG TABLET (FP) PO SCH (21:18)
[2020-11-06] MEDS: BUPRENORPHINE/NALOXONE 8 MG/2 MG FILM PACKET SL SCH (06:27)
[2020-11-06] MEDS: FERROUS SO4 325 MG TABLET (FP) PO SCH (07:31)
[2020-11-06] MEDS: PANTOPRAZOLE 40 MG TABLET PO SCH (09:25)
[2020-11-06] MEDS: GABAPENTIN 100 MG CAPSULE PO SCH (09:25)
[2020-11-06] MEDS: NICOTINE 21 MG/24 HOURS TOPICAL PATCH TD SCH (09:26)
[2020-11-06] MEDS: SERTRALINE HCL 50 MG TABLET (FP) PO SCH (09:26)
[2020-11-06] MEDS: amLODIPine BESYLATE 10 MG TABLET (FP) PO SCH (09:26)
[2020-11-06] MEDS: PRENATAL VITAMINS W/ FOLIC ACID TABLET (FP) PO SCH (09:27)
[2020-11-06 10:44] VITALS: BP 129/72; PULSE 79; TEMP 97.7
== END 2020-11-06 11:58 | disposition other institution (70) | DRG 772 ==
LOC: YASAS 15:49 → Y5N 15:50
PROVIDERS: ADMIT Allergy & Immunology; ATTEND Allergy & Immunology
PROC: HZ42ZZZ Group Counseling for Substance Abuse Treatment, Cognitive-Behavioral (ICD-10-PCS; principal; 2020-10-12)
DX: F11.20 Opioid dependence, uncomplicated (principal); F10.20 Alcohol dependence, uncomplicated; F14.20 Cocaine dependence, uncomplicated; F32.9 Major depressive disorder, single episode, unspecified; D64.9 Anemia, unspecified; G62.9 Polyneuropathy, unspecified; E78.5 Hyperlipidemia, unspecified; I10 Essential (primary) hypertension; J45.909 Unspecified asthma, uncomplicated; K21.9 Gastro-esophageal reflux disease without esophagitis; M25.569 Pain in unspecified knee; Z51.81 Encounter for therapeutic drug level monitoring; Z79.899 Other long term (current) drug therapy; Z99.89 Dependence on other enabling machines and devices; Z59.0 Homelessness
CPT/HCPCS: 36415; 85027; C9803; U0003

== ENCOUNTER 2021-01-10 09:18 | Inpatient (IN) | payer OTHER ==
[2021-01-10 10:49] VITALS: BMI 31.6
[2021-01-10] MEDS ORDERED: BISMUTH SUBSALICYLATE 524 MG/30 ML UD PO PRN (10:56)
[2021-01-10] MEDS ORDERED: ACETAMINOPHEN 325 MG TABLET (FP) PO PRN ×2 (10:56)
[2021-01-10] MEDS ORDERED: MENTHOL/PHENOL 1 EACH UD MM PRN (10:56)
[2021-01-10] MEDS ORDERED: NICOTINE POLACRILEX 2 MG GUM BUC PRN (10:56)
[2021-01-10] MEDS ORDERED: ONDANSETRON *ODT* 4 MG TABLET SL PRN (10:56)
[2021-01-10] MEDS ORDERED: cloNIDine HCL 0.1 MG TABLET PO PRN (10:56)
[2021-01-10] MEDS ORDERED: METHOCARBAMOL 500 MG TABLET PO PRN (10:56)
[2021-01-10] MEDS ORDERED: MAGNESIUM CITRATE 300 ML BOTTLE PO PRN (10:56)
[2021-01-10] MEDS ORDERED: MAG HYDROX/AL HYDROX/SIMETH 30 ML UNIT-DOSE CUP PO PRN (10:56)
[2021-01-10] MEDS ORDERED: MAGNESIUM HYDROX 2400MG/30ML ORAL SUSPENSION 30 ML CUP PO PRN (10:56)
[2021-01-10] MEDS ORDERED: IBUPROFEN 400 MG TABLET (FP) PO PRN (10:56)
[2021-01-10] MEDS ORDERED: ALBUTEROL SO4 HFA INHALER IH PRN (10:58)
[2021-01-10] MEDS ORDERED: METHADONE HCL 10 MG TABLET (FOR DETOX USE ONLY) PO ONE (12:00)
[2021-01-10] MEDS: NICOTINE 21 MG/24 HOURS TOPICAL PATCH TD SCH (12:16)
[2021-01-10] MEDS: PRENATAL VITAMINS W/ FOLIC ACID TABLET (FP) PO SCH (12:16)
[2021-01-10] MEDS ORDERED: COLLOIDAL OATMEAL 1 BAR EACH TP PRN (12:38)
[2021-01-10 12:52] LABS: HEMATOCRIT 31.2 % (35.4-49); HEMOGLOBIN 10.6 GM/dL (11.7-16.9); MCH 29.7 pg (25.7-33.7); MEAN CELL VOLUME 87.5 fl (80-96); MEAN PLT VOLUME 9.1 fl (7.5-11.1); PLATELET COUNT 190 K/MM3 (134-434); RBC 3.57 M/mm3 (4.00-5.60); RDW 14.5 % (11.9-15.9); WHITE BLOOD COUNT 3.9 K/mm3 (4.0-10.0)
[2021-01-10 13:09] LABS: ALBUMIN 3.6 g/dl (3.4-5.0); BILIRUBIN,TOTAL 0.6 mg/dL (0.2-1)
[2021-01-10 13:10] LABS: TOT PROT 7.3 g/dl (6.4-8.2)
[2021-01-10 13:12] LABS: CALCIUM 8.4 mg/dL (8.5-10.1)
[2021-01-10 13:56] LABS: HIV INTERPRETATION NEGATIVE (NEGATIVE)
[2021-01-10] MEDS: hydrOXYzine PAMOATE 25 MG CAPSULE (FP) PO SCH ×3 (14:42→22:20)
[2021-01-10] MEDS: OLANZapine 10 MG TABLET PO SCH (22:20)
[2021-01-10] MEDS: THIAMINE HCL 100 MG TABLET (FP) PO SCH (22:20)
[2021-01-10] MEDS: MELATONIN 5 MG TABLETS PO SCH (22:20)
[2021-01-10] MEDS: BENZTROPINE MESYLATE 1 MG TABLET PO SCH (22:20)
[2021-01-10] MEDS: traZODone HCL 50 MG TABLET (FP) PO SCH (22:20)
[2021-01-11] MEDS: hydrOXYzine PAMOATE 25 MG CAPSULE (FP) PO SCH ×5 (07:46→22:26)
[2021-01-11] MEDS ORDERED: METHADONE HCL 5 MG TABLET (FOR DETOX USE ONLY) ONE (09:04)
[2021-01-11] MEDS ORDERED: METHADONE HCL 10 MG TABLET (FOR DETOX USE ONLY) ONE (09:04)
[2021-01-11] MEDS ORDERED: METHADONE (DETOX) 20 MG, METHADONE (DETOX) 5 MG PO ONE (10:00)
[2021-01-11] MEDS: PRENATAL VITAMINS W/ FOLIC ACID TABLET (FP) PO SCH (10:33)
[2021-01-11] MEDS: amLODIPine BESYLATE 10 MG TABLET (FP) PO SCH (10:33)
[2021-01-11] MEDS: NICOTINE 21 MG/24 HOURS TOPICAL PATCH TD SCH (10:33)
[2021-01-11] MEDS: PANTOPRAZOLE 40 MG TABLET PO SCH (10:33)
[2021-01-11] MEDS: SERTRALINE HCL 50 MG TABLET (FP) PO SCH (10:33)
[2021-01-11] MEDS: traZODone HCL 50 MG TABLET (FP) PO SCH (22:26)
[2021-01-11] MEDS: OLANZapine 10 MG TABLET PO SCH (22:26)
[2021-01-11] MEDS: THIAMINE HCL 100 MG TABLET (FP) PO SCH (22:26)
[2021-01-11] MEDS: MELATONIN 5 MG TABLETS PO SCH (22:27)
[2021-01-11] MEDS: BENZTROPINE MESYLATE 1 MG TABLET PO SCH (22:27)
[2021-01-12] MEDS: hydrOXYzine PAMOATE 25 MG CAPSULE (FP) PO SCH ×5 (06:08→22:27)
[2021-01-12] MEDS ORDERED: METHADONE HCL 10 MG TABLET (FOR DETOX USE ONLY) PO ONE (10:00)
[2021-01-12] MEDS: SERTRALINE HCL 50 MG TABLET (FP) PO SCH (10:20)
[2021-01-12] MEDS: PRENATAL VITAMINS W/ FOLIC ACID TABLET (FP) PO SCH (10:21)
[2021-01-12] MEDS: PANTOPRAZOLE 40 MG TABLET PO SCH (10:21)
[2021-01-12] MEDS: NICOTINE 21 MG/24 HOURS TOPICAL PATCH TD SCH (10:21)
[2021-01-12] MEDS: amLODIPine BESYLATE 10 MG TABLET (FP) PO SCH (10:21)
[2021-01-12] MEDS: OLANZapine 10 MG TABLET PO SCH (22:26)
[2021-01-12] MEDS: traZODone HCL 50 MG TABLET (FP) PO SCH (22:26)
[2021-01-12] MEDS: BENZTROPINE MESYLATE 1 MG TABLET PO SCH (22:27)
[2021-01-12] MEDS: THIAMINE HCL 100 MG TABLET (FP) PO SCH (22:27)
[2021-01-12] MEDS: MELATONIN 5 MG TABLETS PO SCH (22:27)
[2021-01-13] MEDS: hydrOXYzine PAMOATE 25 MG CAPSULE (FP) PO SCH ×5 (06:49→23:05)
[2021-01-13] MEDS ORDERED: METHADONE HCL 5 MG TABLET (FOR DETOX USE ONLY) ONE (09:39)
[2021-01-13] MEDS ORDERED: METHADONE HCL 10 MG TABLET (FOR DETOX USE ONLY) ONE (09:40)
[2021-01-13] MEDS ORDERED: METHADONE (DETOX) 10 MG, METHADONE (DETOX) 5 MG PO ONE (10:00)
[2021-01-13] MEDS: SERTRALINE HCL 50 MG TABLET (FP) PO SCH (10:39)
[2021-01-13] MEDS: PANTOPRAZOLE 40 MG TABLET PO SCH (10:39)
[2021-01-13] MEDS: amLODIPine BESYLATE 10 MG TABLET (FP) PO SCH (10:40)
[2021-01-13] MEDS: PRENATAL VITAMINS W/ FOLIC ACID TABLET (FP) PO SCH (10:42)
[2021-01-13] MEDS: NICOTINE 21 MG/24 HOURS TOPICAL PATCH TD SCH (10:42)
[2021-01-13 14:09] LABS: SARS-CoV-2 NAA Not Detected (Not Detected)
[2021-01-13] MEDS: BENZTROPINE MESYLATE 1 MG TABLET PO SCH (23:05)
[2021-01-13] MEDS: traZODone HCL 50 MG TABLET (FP) PO SCH (23:05)
[2021-01-13] MEDS: THIAMINE HCL 100 MG TABLET (FP) PO SCH (23:06)
[2021-01-13] MEDS: OLANZapine 10 MG TABLET PO SCH (23:06)
[2021-01-13] MEDS: MELATONIN 5 MG TABLETS PO SCH (23:06)
[2021-01-14] MEDS: hydrOXYzine PAMOATE 25 MG CAPSULE (FP) PO SCH ×5 (07:46→21:41)
[2021-01-14] MEDS ORDERED: METHADONE HCL 10 MG TABLET (FOR DETOX USE ONLY) PO ONE (10:00)
[2021-01-14] MEDS: SERTRALINE HCL 50 MG TABLET (FP) PO SCH (10:56)
[2021-01-14] MEDS: PRENATAL VITAMINS W/ FOLIC ACID TABLET (FP) PO SCH (10:57)
[2021-01-14] MEDS: amLODIPine BESYLATE 10 MG TABLET (FP) PO SCH (10:57)
[2021-01-14] MEDS: PANTOPRAZOLE 40 MG TABLET PO SCH (10:57)
[2021-01-14] MEDS: NICOTINE 21 MG/24 HOURS TOPICAL PATCH TD SCH (10:57)
[2021-01-14] MEDS: MELATONIN 5 MG TABLETS PO SCH (21:41)
[2021-01-14] MEDS: OLANZapine 10 MG TABLET PO SCH (21:41)
[2021-01-14] MEDS: BENZTROPINE MESYLATE 1 MG TABLET PO SCH (21:41)
[2021-01-14] MEDS: traZODone HCL 50 MG TABLET (FP) PO SCH (21:41)
[2021-01-15] MEDS: THIAMINE HCL 100 MG TABLET (FP) PO SCH (00:16)
[2021-01-15] MEDS ORDERED: METHADONE HCL 5 MG TABLET (FOR DETOX USE ONLY) PO ONE (06:00)
[2021-01-15] MEDS: hydrOXYzine PAMOATE 25 MG CAPSULE (FP) PO SCH ×3 (06:46→13:25)
[2021-01-15] MEDS: PRENATAL VITAMINS W/ FOLIC ACID TABLET (FP) PO SCH (10:32)
[2021-01-15] MEDS: NICOTINE 21 MG/24 HOURS TOPICAL PATCH TD SCH (10:32)
[2021-01-15] MEDS: SERTRALINE HCL 50 MG TABLET (FP) PO SCH (10:32)
[2021-01-15] MEDS: PANTOPRAZOLE 40 MG TABLET PO SCH (10:32)
[2021-01-15] MEDS: amLODIPine BESYLATE 10 MG TABLET (FP) PO SCH (10:32)
[2021-01-15 13:42] VITALS: BP 126/67; PULSE 73; TEMP 97.1
== END 2021-01-15 14:03 | disposition other institution (70) | DRG 773 ==
LOC: YASAS 09:18 → Y6N 11:32
PROVIDERS: ADMIT Allergy & Immunology; ATTEND Allergy & Immunology
PROC: HZ2ZZZZ Detoxification Services for Substance Abuse Treatment (ICD-10-PCS; principal; 2021-01-10)
DX: F11.23 Opioid dependence with withdrawal (principal); F13.20 Sedative, hypnotic or anxiolytic dependence, uncomplicated; F14.20 Cocaine dependence, uncomplicated; F12.20 Cannabis dependence, uncomplicated; F17.210 Nicotine dependence, cigarettes, uncomplicated; F25.1 Schizoaffective disorder, depressive type; G62.9 Polyneuropathy, unspecified; I10 Essential (primary) hypertension; J45.909 Unspecified asthma, uncomplicated; K21.9 Gastro-esophageal reflux disease without esophagitis; E78.5 Hyperlipidemia, unspecified; D64.9 Anemia, unspecified; F19.282 Other psychoactive substance dependence with psychoactive substance-induced sleep disorder; Z98.890 Other specified postprocedural states; Z87.828 Personal history of other (healed) physical injury and trauma; Z87.81 Personal history of (healed) traumatic fracture; Z99.89 Dependence on other enabling machines and devices
CPT/HCPCS: 36415; 80053; 85027; 86780; 87389; C9803; U0003; U0005

== ENCOUNTER 2021-01-15 14:11 | Inpatient (IN) | payer OTHER ==
[2021-01-15] MEDS ORDERED: MAGNESIUM CITRATE 300 ML BOTTLE PO PRN (15:04)
[2021-01-15] MEDS ORDERED: MENTHOL/PHENOL 1 EACH UD MM PRN (15:04)
[2021-01-15] MEDS ORDERED: NICOTINE POLACRILEX 2 MG GUM BUC PRN (15:04)
[2021-01-15] MEDS ORDERED: MAG HYDROX/AL HYDROX/SIMETH 30 ML UNIT-DOSE CUP PO PRN (15:04)
[2021-01-15] MEDS ORDERED: guaiFENesin 200 MG/10 ML 10 ML UNIT-DOSE CUPS PO PRN (15:04)
[2021-01-15] MEDS ORDERED: LOPERAMIDE HCL 2 MG CAPSULE PO PRN (15:04)
[2021-01-15] MEDS ORDERED: P-EPHED 60MG/TRIPROLIDI 2.5MG TABLET PO PRN (15:04)
[2021-01-15] MEDS ORDERED: ALBUTEROL SO4 HFA INHALER IH PRN (15:04)
[2021-01-15] MEDS ORDERED: MAGNESIUM HYDROX 2400MG/30ML ORAL SUSPENSION 30 ML CUP PO PRN (15:04)
[2021-01-15] MEDS: hydrOXYzine PAMOATE 25 MG CAPSULE (FP) PO PRN ×2 (16:54→21:25)
[2021-01-15] MEDS: OLANZapine 10 MG TABLET PO SCH (21:25)
[2021-01-15] MEDS: BENZTROPINE MESYLATE 1 MG TABLET PO SCH (21:25)
[2021-01-15] MEDS: GABAPENTIN 300 MG CAPSULE PO SCH (21:25)
[2021-01-15] MEDS: MELATONIN 5 MG TABLETS PO SCH (21:25)
[2021-01-15] MEDS: THIAMINE HCL 100 MG TABLET (FP) PO SCH (21:25)
[2021-01-15] MEDS: traZODone HCL 50 MG TABLET (FP) PO SCH (21:25)
[2021-01-15] MEDS: COLLOIDAL OATMEAL 1 BAR EACH TP PRN (23:01)
[2021-01-16] MEDS ORDERED: NICOTINE 7 MG/24 HOURS TOPICAL PATCH TD SCH (10:00)
[2021-01-16] MEDS: amLODIPine BESYLATE 10 MG TABLET (FP) PO SCH (10:13)
[2021-01-16] MEDS: GABAPENTIN 300 MG CAPSULE PO SCH ×2 (10:13→21:49)
[2021-01-16] MEDS: SERTRALINE HCL 50 MG TABLET (FP) PO SCH (10:13)
[2021-01-16] MEDS: PANTOPRAZOLE 40 MG TABLET PO SCH (10:13)
[2021-01-16] MEDS: PRENATAL VITAMINS W/ FOLIC ACID TABLET (FP) PO SCH (10:14)
[2021-01-16] MEDS: NICOTINE 7 MG/24 HOURS TOPICAL PATCH TD SCH (10:15)
[2021-01-16] MEDS: traZODone HCL 50 MG TABLET (FP) PO SCH (21:48)
[2021-01-16] MEDS: OLANZapine 10 MG TABLET PO SCH (21:49)
[2021-01-16] MEDS: THIAMINE HCL 100 MG TABLET (FP) PO SCH (21:49)
[2021-01-16] MEDS: MELATONIN 5 MG TABLETS PO SCH (21:49)
[2021-01-16] MEDS: BENZTROPINE MESYLATE 1 MG TABLET PO SCH (21:49)
[2021-01-17] MEDS: PRENATAL VITAMINS W/ FOLIC ACID TABLET (FP) PO SCH (09:58)
[2021-01-17] MEDS: amLODIPine BESYLATE 10 MG TABLET (FP) PO SCH (09:59)
[2021-01-17] MEDS: GABAPENTIN 300 MG CAPSULE PO SCH ×3 (09:59→21:52)
[2021-01-17] MEDS: PANTOPRAZOLE 40 MG TABLET PO SCH (09:59)
[2021-01-17] MEDS: SERTRALINE HCL 50 MG TABLET (FP) PO SCH (09:59)
[2021-01-17] MEDS: NICOTINE 7 MG/24 HOURS TOPICAL PATCH TD SCH (10:00)
[2021-01-17] MEDS: hydrOXYzine PAMOATE 25 MG CAPSULE (FP) PO PRN (17:58)
[2021-01-17] MEDS: IBUPROFEN 400 MG TABLET (FP) PO PRN (17:58)
[2021-01-17] MEDS: traZODone HCL 50 MG TABLET (FP) PO SCH (21:51)
[2021-01-17] MEDS: BENZTROPINE MESYLATE 1 MG TABLET PO SCH (21:52)
[2021-01-17] MEDS: OLANZapine 10 MG TABLET PO SCH (21:52)
[2021-01-17] MEDS: THIAMINE HCL 100 MG TABLET (FP) PO SCH (21:52)
[2021-01-17] MEDS: MELATONIN 5 MG TABLETS PO SCH (21:52)
[2021-01-18] MEDS: GABAPENTIN 300 MG CAPSULE PO SCH ×3 (06:58→21:04)
[2021-01-18] MEDS: PRENATAL VITAMINS W/ FOLIC ACID TABLET (FP) PO SCH (10:15)
[2021-01-18] MEDS: NICOTINE 7 MG/24 HOURS TOPICAL PATCH TD SCH (10:15)
[2021-01-18] MEDS: SERTRALINE HCL 50 MG TABLET (FP) PO SCH (10:16)
[2021-01-18] MEDS: PANTOPRAZOLE 40 MG TABLET PO SCH (10:16)
[2021-01-18] MEDS: IBUPROFEN 400 MG TABLET (FP) PO PRN ×2 (10:17→18:06)
[2021-01-18] MEDS: amLODIPine BESYLATE 10 MG TABLET (FP) PO SCH (10:17)
[2021-01-18] MEDS: hydrOXYzine PAMOATE 25 MG CAPSULE (FP) PO PRN ×2 (10:17→18:06)
[2021-01-18] MEDS: traZODone HCL 50 MG TABLET (FP) PO SCH (21:04)
[2021-01-18] MEDS: BENZTROPINE MESYLATE 1 MG TABLET PO SCH (21:04)
[2021-01-18] MEDS: THIAMINE HCL 100 MG TABLET (FP) PO SCH (21:04)
[2021-01-18] MEDS: MELATONIN 5 MG TABLETS PO SCH (21:04)
[2021-01-18] MEDS: OLANZapine 10 MG TABLET PO SCH (21:04)
[2021-01-19] MEDS: GABAPENTIN 300 MG CAPSULE PO SCH ×3 (06:56→21:58)
[2021-01-19 10:07] LABS: SARS-CoV-2 NAA Not Detected (Not Detected)
[2021-01-19] MEDS: SERTRALINE HCL 50 MG TABLET (FP) PO SCH (10:40)
[2021-01-19] MEDS: PANTOPRAZOLE 40 MG TABLET PO SCH (10:40)
[2021-01-19] MEDS: PRENATAL VITAMINS W/ FOLIC ACID TABLET (FP) PO SCH (10:40)
[2021-01-19] MEDS: amLODIPine BESYLATE 10 MG TABLET (FP) PO SCH (10:40)
[2021-01-19] MEDS: NICOTINE 7 MG/24 HOURS TOPICAL PATCH TD SCH (10:41)
[2021-01-19] MEDS: BENZTROPINE MESYLATE 1 MG TABLET PO SCH (21:57)
[2021-01-19] MEDS: traZODone HCL 50 MG TABLET (FP) PO SCH (21:57)
[2021-01-19] MEDS: OLANZapine 10 MG TABLET PO SCH (21:58)
[2021-01-19] MEDS: MELATONIN 5 MG TABLETS PO SCH (21:58)
[2021-01-19] MEDS: hydrOXYzine PAMOATE 25 MG CAPSULE (FP) PO PRN (21:58)
[2021-01-19] MEDS: THIAMINE HCL 100 MG TABLET (FP) PO SCH (21:58)
[2021-01-20] MEDS: GABAPENTIN 300 MG CAPSULE PO SCH ×3 (06:51→21:00)
[2021-01-20] MEDS: hydrOXYzine PAMOATE 25 MG CAPSULE (FP) PO PRN (07:07)
[2021-01-20] MEDS: NICOTINE 7 MG/24 HOURS TOPICAL PATCH TD SCH (10:22)
[2021-01-20] MEDS: PRENATAL VITAMINS W/ FOLIC ACID TABLET (FP) PO SCH (10:22)
[2021-01-20] MEDS: SERTRALINE HCL 50 MG TABLET (FP) PO SCH (10:23)
[2021-01-20] MEDS: PANTOPRAZOLE 40 MG TABLET PO SCH (10:23)
[2021-01-20] MEDS: amLODIPine BESYLATE 10 MG TABLET (FP) PO SCH (10:24)
[2021-01-20] MEDS: traZODone HCL 50 MG TABLET (FP) PO SCH (21:00)
[2021-01-20] MEDS: BENZTROPINE MESYLATE 1 MG TABLET PO SCH (21:00)
[2021-01-20] MEDS: THIAMINE HCL 100 MG TABLET (FP) PO SCH (21:00)
[2021-01-20] MEDS: OLANZapine 10 MG TABLET PO SCH (21:00)
[2021-01-20] MEDS: MELATONIN 5 MG TABLETS PO SCH (21:17)
[2021-01-20] MEDS: COLLOIDAL OATMEAL 1 BAR EACH TP PRN (21:18)
[2021-01-21] MEDS: IBUPROFEN 400 MG TABLET (FP) PO PRN (06:18)
[2021-01-21] MEDS: GABAPENTIN 300 MG CAPSULE PO SCH ×3 (06:18→22:08)
[2021-01-21] MEDS: PANTOPRAZOLE 40 MG TABLET PO SCH (10:32)
[2021-01-21] MEDS: PRENATAL VITAMINS W/ FOLIC ACID TABLET (FP) PO SCH (10:32)
[2021-01-21] MEDS: amLODIPine BESYLATE 10 MG TABLET (FP) PO SCH (10:33)
[2021-01-21] MEDS: NICOTINE 7 MG/24 HOURS TOPICAL PATCH TD SCH (10:33)
[2021-01-21] MEDS: SERTRALINE HCL 50 MG TABLET (FP) PO SCH (10:33)
[2021-01-21] MEDS: traZODone HCL 50 MG TABLET (FP) PO SCH (22:08)
[2021-01-21] MEDS: MELATONIN 5 MG TABLETS PO SCH (22:08)
[2021-01-21] MEDS: THIAMINE HCL 100 MG TABLET (FP) PO SCH (22:09)
[2021-01-21] MEDS: OLANZapine 10 MG TABLET PO SCH (22:10)
[2021-01-21] MEDS: BENZTROPINE MESYLATE 1 MG TABLET PO SCH (22:27)
[2021-01-22] MEDS: GABAPENTIN 300 MG CAPSULE PO SCH ×3 (06:57→21:07)
[2021-01-22] MEDS: SERTRALINE HCL 50 MG TABLET (FP) PO SCH (10:39)
[2021-01-22] MEDS: NICOTINE 7 MG/24 HOURS TOPICAL PATCH TD SCH (10:39)
[2021-01-22] MEDS: PRENATAL VITAMINS W/ FOLIC ACID TABLET (FP) PO SCH (10:39)
[2021-01-22] MEDS: PANTOPRAZOLE 40 MG TABLET PO SCH (10:40)
[2021-01-22] MEDS: amLODIPine BESYLATE 10 MG TABLET (FP) PO SCH (10:40)
[2021-01-22] MEDS: BENZTROPINE MESYLATE 1 MG TABLET PO SCH (21:06)
[2021-01-22] MEDS: traZODone HCL 50 MG TABLET (FP) PO SCH (21:06)
[2021-01-22] MEDS: MELATONIN 5 MG TABLETS PO SCH (21:07)
[2021-01-22] MEDS: OLANZapine 10 MG TABLET PO SCH (21:07)
[2021-01-22] MEDS: hydrOXYzine PAMOATE 25 MG CAPSULE (FP) PO PRN (21:07)
[2021-01-22] MEDS: THIAMINE HCL 100 MG TABLET (FP) PO SCH (21:07)
[2021-01-23] MEDS: GABAPENTIN 300 MG CAPSULE PO SCH ×3 (06:37→22:12)
[2021-01-23] MEDS: PRENATAL VITAMINS W/ FOLIC ACID TABLET (FP) PO SCH (09:10)
[2021-01-23] MEDS: PANTOPRAZOLE 40 MG TABLET PO SCH (09:10)
[2021-01-23] MEDS: amLODIPine BESYLATE 10 MG TABLET (FP) PO SCH (09:10)
[2021-01-23] MEDS: SERTRALINE HCL 50 MG TABLET (FP) PO SCH (09:10)
[2021-01-23] MEDS: NICOTINE 7 MG/24 HOURS TOPICAL PATCH TD SCH (09:10)
[2021-01-23] MEDS: hydrOXYzine PAMOATE 25 MG CAPSULE (FP) PO PRN (13:37)
[2021-01-23] MEDS: traZODone HCL 50 MG TABLET (FP) PO SCH (22:12)
[2021-01-23] MEDS: THIAMINE HCL 100 MG TABLET (FP) PO SCH (22:12)
[2021-01-23] MEDS: BENZTROPINE MESYLATE 1 MG TABLET PO SCH (22:13)
[2021-01-23] MEDS: MELATONIN 5 MG TABLETS PO SCH (22:13)
[2021-01-23] MEDS: OLANZapine 10 MG TABLET PO SCH (22:13)
[2021-01-24] MEDS: IBUPROFEN 400 MG TABLET (FP) PO PRN (06:41)
[2021-01-24] MEDS: GABAPENTIN 300 MG CAPSULE PO SCH ×3 (06:42→21:01)
[2021-01-24] MEDS ORDERED: MODERNA COVID-19 VACC,MRNA/PF 100 MCG/0.5 ML IM ONE (09:00)
[2021-01-24] MEDS: PRENATAL VITAMINS W/ FOLIC ACID TABLET (FP) PO SCH (10:36)
[2021-01-24] MEDS: amLODIPine BESYLATE 10 MG TABLET (FP) PO SCH (10:36)
[2021-01-24] MEDS: PANTOPRAZOLE 40 MG TABLET PO SCH (10:36)
[2021-01-24] MEDS: SERTRALINE HCL 50 MG TABLET (FP) PO SCH (10:36)
[2021-01-24] MEDS: NICOTINE 7 MG/24 HOURS TOPICAL PATCH TD SCH (10:36)
[2021-01-24] MEDS: hydrOXYzine PAMOATE 25 MG CAPSULE (FP) PO PRN (10:37)
[2021-01-24] MEDS: BENZTROPINE MESYLATE 1 MG TABLET PO SCH (21:01)
[2021-01-24] MEDS: traZODone HCL 50 MG TABLET (FP) PO SCH (21:01)
[2021-01-24] MEDS: OLANZapine 10 MG TABLET PO SCH (21:01)
[2021-01-24] MEDS: THIAMINE HCL 100 MG TABLET (FP) PO SCH (21:01)
[2021-01-24] MEDS: MELATONIN 5 MG TABLETS PO SCH (21:02)
[2021-01-25] MEDS: GABAPENTIN 300 MG CAPSULE PO SCH ×3 (06:57→21:06)
[2021-01-25] MEDS: PRENATAL VITAMINS W/ FOLIC ACID TABLET (FP) PO SCH (10:10)
[2021-01-25] MEDS: PANTOPRAZOLE 40 MG TABLET PO SCH (10:10)
[2021-01-25] MEDS: SERTRALINE HCL 50 MG TABLET (FP) PO SCH (10:10)
[2021-01-25] MEDS: amLODIPine BESYLATE 10 MG TABLET (FP) PO SCH (10:10)
[2021-01-25] MEDS: NICOTINE 7 MG/24 HOURS TOPICAL PATCH TD SCH (10:11)
[2021-01-25] MEDS ORDERED: MODERNA COVID-19 VACC,MRNA/PF 100 MCG/0.5 ML IM ONE (10:30)
[2021-01-25] MEDS: ACETAMINOPHEN 325 MG TABLET (FP) PO PRN (19:47)
[2021-01-25] MEDS: MELATONIN 5 MG TABLETS PO SCH (21:05)
[2021-01-25] MEDS: THIAMINE HCL 100 MG TABLET (FP) PO SCH (21:06)
[2021-01-25] MEDS: hydrOXYzine PAMOATE 25 MG CAPSULE (FP) PO PRN (21:06)
[2021-01-25] MEDS: BENZTROPINE MESYLATE 1 MG TABLET PO SCH (21:06)
[2021-01-25] MEDS: OLANZapine 10 MG TABLET PO SCH (21:06)
[2021-01-25] MEDS: traZODone HCL 50 MG TABLET (FP) PO SCH (21:06)
[2021-01-26] MEDS: GABAPENTIN 300 MG CAPSULE PO SCH ×3 (06:15→21:26)
[2021-01-26] MEDS: ACETAMINOPHEN 325 MG TABLET (FP) PO PRN (06:16)
[2021-01-26] MEDS: PRENATAL VITAMINS W/ FOLIC ACID TABLET (FP) PO SCH (10:51)
[2021-01-26] MEDS: NICOTINE 7 MG/24 HOURS TOPICAL PATCH TD SCH (10:51)
[2021-01-26] MEDS: SERTRALINE HCL 50 MG TABLET (FP) PO SCH (10:51)
[2021-01-26] MEDS: amLODIPine BESYLATE 10 MG TABLET (FP) PO SCH (10:51)
[2021-01-26] MEDS: PANTOPRAZOLE 40 MG TABLET PO SCH (10:51)
[2021-01-26] MEDS: BENZTROPINE MESYLATE 1 MG TABLET PO SCH (21:25)
[2021-01-26] MEDS: traZODone HCL 50 MG TABLET (FP) PO SCH (21:25)
[2021-01-26] MEDS: hydrOXYzine PAMOATE 25 MG CAPSULE (FP) PO PRN (21:25)
[2021-01-26] MEDS: OLANZapine 10 MG TABLET PO SCH (21:25)
[2021-01-26] MEDS: MELATONIN 5 MG TABLETS PO SCH (21:25)
[2021-01-26] MEDS: THIAMINE HCL 100 MG TABLET (FP) PO SCH (21:25)
[2021-01-27] MEDS: hydrOXYzine PAMOATE 25 MG CAPSULE (FP) PO PRN ×2 (07:07→19:11)
[2021-01-27] MEDS: GABAPENTIN 300 MG CAPSULE PO SCH ×3 (07:07→21:14)
[2021-01-27] MEDS: SERTRALINE HCL 50 MG TABLET (FP) PO SCH (10:11)
[2021-01-27] MEDS: PRENATAL VITAMINS W/ FOLIC ACID TABLET (FP) PO SCH (10:11)
[2021-01-27] MEDS: PANTOPRAZOLE 40 MG TABLET PO SCH (10:12)
[2021-01-27] MEDS: amLODIPine BESYLATE 10 MG TABLET (FP) PO SCH (10:12)
[2021-01-27] MEDS: NICOTINE 7 MG/24 HOURS TOPICAL PATCH TD SCH (10:12)
[2021-01-27] MEDS: COLLOIDAL OATMEAL 1 BAR EACH TP PRN (19:12)
[2021-01-27] MEDS: traZODone HCL 50 MG TABLET (FP) PO SCH (21:13)
[2021-01-27] MEDS: OLANZapine 10 MG TABLET PO SCH (21:13)
[2021-01-27] MEDS: THIAMINE HCL 100 MG TABLET (FP) PO SCH (21:14)
[2021-01-27] MEDS: MELATONIN 5 MG TABLETS PO SCH (21:14)
[2021-01-27] MEDS: BENZTROPINE MESYLATE 1 MG TABLET PO SCH (21:14)
[2021-01-28] MEDS: GABAPENTIN 300 MG CAPSULE PO SCH ×3 (06:50→21:55)
[2021-01-28] MEDS: PRENATAL VITAMINS W/ FOLIC ACID TABLET (FP) PO SCH (10:02)
[2021-01-28] MEDS: amLODIPine BESYLATE 10 MG TABLET (FP) PO SCH (10:02)
[2021-01-28] MEDS: SERTRALINE HCL 50 MG TABLET (FP) PO SCH (10:02)
[2021-01-28] MEDS: PANTOPRAZOLE 40 MG TABLET PO SCH (10:02)
[2021-01-28] MEDS: NICOTINE 7 MG/24 HOURS TOPICAL PATCH TD SCH (10:03)
[2021-01-28] MEDS: traZODone HCL 50 MG TABLET (FP) PO SCH (21:55)
[2021-01-28] MEDS: THIAMINE HCL 100 MG TABLET (FP) PO SCH (21:55)
[2021-01-28] MEDS: hydrOXYzine PAMOATE 25 MG CAPSULE (FP) PO PRN (21:55)
[2021-01-28] MEDS: BENZTROPINE MESYLATE 1 MG TABLET PO SCH (21:55)
[2021-01-28] MEDS: MELATONIN 5 MG TABLETS PO SCH (21:55)
[2021-01-28] MEDS: OLANZapine 10 MG TABLET PO SCH (21:55)
[2021-01-29] MEDS: GABAPENTIN 300 MG CAPSULE PO SCH ×3 (06:43→21:12)
[2021-01-29] MEDS: amLODIPine BESYLATE 10 MG TABLET (FP) PO SCH (10:25)
[2021-01-29] MEDS: PANTOPRAZOLE 40 MG TABLET PO SCH (10:25)
[2021-01-29] MEDS: SERTRALINE HCL 50 MG TABLET (FP) PO SCH (10:26)
[2021-01-29] MEDS: PRENATAL VITAMINS W/ FOLIC ACID TABLET (FP) PO SCH (10:26)
[2021-01-29] MEDS: NICOTINE 7 MG/24 HOURS TOPICAL PATCH TD SCH (10:26)
[2021-01-29] MEDS: hydrOXYzine PAMOATE 25 MG CAPSULE (FP) PO PRN ×2 (11:48→21:11)
[2021-01-29] MEDS: OLANZapine 10 MG TABLET PO SCH (21:11)
[2021-01-29] MEDS: BENZTROPINE MESYLATE 1 MG TABLET PO SCH (21:11)
[2021-01-29] MEDS: THIAMINE HCL 100 MG TABLET (FP) PO SCH (21:12)
[2021-01-29] MEDS: traZODone HCL 50 MG TABLET (FP) PO SCH (21:12)
[2021-01-29] MEDS: MELATONIN 5 MG TABLETS PO SCH (21:12)
[2021-01-30] MEDS: GABAPENTIN 300 MG CAPSULE PO SCH ×3 (07:04→21:45)
[2021-01-30] MEDS: PRENATAL VITAMINS W/ FOLIC ACID TABLET (FP) PO SCH (10:36)
[2021-01-30] MEDS: NICOTINE 7 MG/24 HOURS TOPICAL PATCH TD SCH (10:36)
[2021-01-30] MEDS: PANTOPRAZOLE 40 MG TABLET PO SCH (10:37)
[2021-01-30] MEDS: SERTRALINE HCL 50 MG TABLET (FP) PO SCH (10:37)
[2021-01-30] MEDS: amLODIPine BESYLATE 10 MG TABLET (FP) PO SCH (10:37)
[2021-01-30] MEDS: hydrOXYzine PAMOATE 25 MG CAPSULE (FP) PO PRN (18:34)
[2021-01-30] MEDS: MELATONIN 5 MG TABLETS PO SCH (21:45)
[2021-01-30] MEDS: THIAMINE HCL 100 MG TABLET (FP) PO SCH (21:45)
[2021-01-30] MEDS: BENZTROPINE MESYLATE 1 MG TABLET PO SCH (21:46)
[2021-01-30] MEDS: traZODone HCL 50 MG TABLET (FP) PO SCH (21:46)
[2021-01-30] MEDS: OLANZapine 10 MG TABLET PO SCH (21:51)
[2021-01-31 06:56] VITALS: TEMP 97.5
[2021-01-31] MEDS: GABAPENTIN 300 MG CAPSULE PO SCH (07:17)
[2021-01-31] MEDS: COLLOIDAL OATMEAL 1 BAR EACH TP PRN (07:27)
[2021-01-31] MEDS: amLODIPine BESYLATE 10 MG TABLET (FP) PO SCH (09:11)
[2021-01-31] MEDS: PRENATAL VITAMINS W/ FOLIC ACID TABLET (FP) PO SCH (09:11)
[2021-01-31] MEDS: SERTRALINE HCL 50 MG TABLET (FP) PO SCH (09:11)
[2021-01-31] MEDS: PANTOPRAZOLE 40 MG TABLET PO SCH (09:11)
[2021-01-31] MEDS: NICOTINE 7 MG/24 HOURS TOPICAL PATCH TD SCH (09:11)
[2021-01-31 10:10] VITALS: BP 146/87; PULSE 89
== END 2021-01-31 09:12 | disposition home or self-care (01) | DRG 772 ==
LOC: YASAS 14:11 → Y5N 14:13
PROVIDERS: ADMIT Allergy & Immunology; ATTEND Allergy & Immunology
PROC: HZ42ZZZ Group Counseling for Substance Abuse Treatment, Cognitive-Behavioral (ICD-10-PCS; principal; 2021-01-15)
DX: F11.20 Opioid dependence, uncomplicated (principal); F14.20 Cocaine dependence, uncomplicated; F12.20 Cannabis dependence, uncomplicated; F17.210 Nicotine dependence, cigarettes, uncomplicated; G62.9 Polyneuropathy, unspecified; E78.5 Hyperlipidemia, unspecified; I10 Essential (primary) hypertension; J45.909 Unspecified asthma, uncomplicated; K21.9 Gastro-esophageal reflux disease without esophagitis; Z99.89 Dependence on other enabling machines and devices; Z59.0 Homelessness
CPT/HCPCS: 0012A; 91301; C9803; U0003; U0005

== ENCOUNTER 2021-03-26 19:07 | Inpatient (IN) | payer OTHER ==
[2021-03-26 19:51] VITALS: BMI 27.6
[2021-03-26] MEDS ORDERED: ACETAMINOPHEN 325 MG TABLET (FP) PO PRN ×2 (20:57)
[2021-03-26] MEDS ORDERED: diazePAM 5 MG TABLET PO PRN (20:57)
[2021-03-26] MEDS ORDERED: ONDANSETRON *ODT* 4 MG TABLET SL PRN (20:57)
[2021-03-26] MEDS ORDERED: MENTHOL/PHENOL 1 EACH UD MM PRN (20:57)
[2021-03-26] MEDS ORDERED: BISMUTH SUBSALICYLATE 524 MG/30 ML PO PRN (20:57)
[2021-03-26] MEDS ORDERED: NICOTINE POLACRILEX 2 MG GUM BUC PRN (20:57)
[2021-03-26] MEDS ORDERED: MAGNESIUM CITRATE 300 ML BOTTLE PO PRN (20:57)
[2021-03-26] MEDS ORDERED: methaDONE HCL 10 MG TABLET (FOR DETOX USE ONLY) PO ONE (20:57)
[2021-03-26] MEDS ORDERED: MAGNESIUM HYDROX 2400MG/30ML ORAL SUSPENSION 30 ML CUP PO PRN (20:57)
[2021-03-26] MEDS ORDERED: cloNIDine HCL 0.1 MG TABLET PO PRN (20:57)
[2021-03-26] MEDS ORDERED: MAG HYDROX/AL HYDROX/SIMETH 30 ML UNIT-DOSE CUP PO PRN (20:57)
[2021-03-26] MEDS ORDERED: IBUPROFEN 400 MG TABLET (FP) PO PRN (20:57)
[2021-03-26] MEDS ORDERED: ALBUTEROL SO4 HFA INHALER IH PRN (21:19)
[2021-03-26] MEDS ORDERED: MELATONIN 5 MG TABLETS PO SCH (22:00)
[2021-03-26] MEDS: PANTOPRAZOLE 40 MG TABLET PO SCH (23:13)
[2021-03-26] MEDS: amLODIPine BESYLATE 10 MG TABLET (FP) PO SCH (23:13)
[2021-03-26] MEDS: BENZTROPINE MESYLATE 1 MG TABLET PO SCH (23:13)
[2021-03-26] MEDS: hydrOXYzine PAMOATE 25 MG CAPSULE (FP) PO SCH (23:15)
[2021-03-26] MEDS: diazePAM 5 MG TABLET PO SCH (23:15)
[2021-03-26] MEDS: THIAMINE HCL 100 MG TABLET (FP) PO SCH (23:16)
[2021-03-26] MEDS: SERTRALINE HCL 50 MG TABLET (FP) PO SCH (23:17)
[2021-03-27] MEDS: diazePAM 5 MG TABLET PO SCH ×4 (06:21→23:20)
[2021-03-27] MEDS: hydrOXYzine PAMOATE 25 MG CAPSULE (FP) PO SCH ×5 (06:21→23:20)
[2021-03-27] MEDS ORDERED: methaDONE HCL 10 MG TABLET (FOR DETOX USE ONLY) ONE (09:02)
[2021-03-27] MEDS: PRENATAL VITAMINS W/ FOLIC ACID TABLET (FP) PO SCH (11:03)
[2021-03-27] MEDS: METHOCARBAMOL 500 MG TABLET PO PRN (11:03)
[2021-03-27] MEDS: amLODIPine BESYLATE 10 MG TABLET (FP) PO SCH (11:03)
[2021-03-27] MEDS: SERTRALINE HCL 50 MG TABLET (FP) PO SCH (11:03)
[2021-03-27] MEDS: PANTOPRAZOLE 40 MG TABLET PO SCH (11:03)
[2021-03-27] MEDS: NICOTINE 14 MG/24 HOURS TOPICAL PATCH TD SCH (11:06)
[2021-03-27] MEDS: traZODone HCL 50 MG TABLET (FP) PO SCH (23:19)
[2021-03-27] MEDS: THIAMINE HCL 100 MG TABLET (FP) PO SCH (23:20)
[2021-03-27] MEDS: BENZTROPINE MESYLATE 1 MG TABLET PO SCH (23:20)
[2021-03-27] MEDS: OLANZapine 10 MG TABLET PO SCH (23:21)
[2021-03-28] MEDS: diazePAM 5 MG TABLET PO SCH ×3 (06:23→22:34)
[2021-03-28] MEDS: hydrOXYzine PAMOATE 25 MG CAPSULE (FP) PO SCH ×2 (06:23→11:02)
[2021-03-28] MEDS ORDERED: methaDONE HCL 10 MG TABLET (FOR DETOX USE ONLY) PO ONE (10:00)
[2021-03-28] MEDS ORDERED: FAMOTIDINE 20 MG TABLET PO SCH (10:45)
[2021-03-28] MEDS: amLODIPine BESYLATE 10 MG TABLET (FP) PO SCH (10:59)
[2021-03-28] MEDS: NICOTINE 14 MG/24 HOURS TOPICAL PATCH TD SCH (10:59)
[2021-03-28] MEDS: SERTRALINE HCL 50 MG TABLET (FP) PO SCH (11:00)
[2021-03-28] MEDS: PRENATAL VITAMINS W/ FOLIC ACID TABLET (FP) PO SCH (11:00)
[2021-03-28] MEDS: PANTOPRAZOLE 40 MG TABLET PO SCH (11:02)
[2021-03-28] MEDS: traZODone HCL 50 MG TABLET (FP) PO SCH (22:33)
[2021-03-28] MEDS: BENZTROPINE MESYLATE 1 MG TABLET PO SCH (22:33)
[2021-03-28] MEDS: THIAMINE HCL 100 MG TABLET (FP) PO SCH (22:35)
[2021-03-28] MEDS: OLANZapine 10 MG TABLET PO SCH (22:35)
[2021-03-29] MEDS: diazePAM 5 MG TABLET PO SCH ×2 (06:00→19:01)
[2021-03-29] MEDS ORDERED: methaDONE HCL 10 MG TABLET (FOR DETOX USE ONLY) ONE (08:51)
[2021-03-29] MEDS ORDERED: TRIMETHOBENZAMIDE HCL 200MG/2ML INJ IM PRN ×2 (10:45→13:20)
[2021-03-29] MEDS: SERTRALINE HCL 50 MG TABLET (FP) PO SCH (12:02)
[2021-03-29] MEDS: PRENATAL VITAMINS W/ FOLIC ACID TABLET (FP) PO SCH (12:03)
[2021-03-29] MEDS: PANTOPRAZOLE 40 MG TABLET PO SCH (12:03)
[2021-03-29] MEDS: amLODIPine BESYLATE 10 MG TABLET (FP) PO SCH (12:03)
[2021-03-29] MEDS: NICOTINE 14 MG/24 HOURS TOPICAL PATCH TD SCH (12:09)
[2021-03-29] MEDS: OLANZapine 10 MG TABLET PO SCH (22:53)
[2021-03-29] MEDS: BENZTROPINE MESYLATE 1 MG TABLET PO SCH (22:53)
[2021-03-29] MEDS: traZODone HCL 50 MG TABLET (FP) PO SCH (22:53)
[2021-03-29] MEDS: THIAMINE HCL 100 MG TABLET (FP) PO SCH (22:53)
[2021-03-30] MEDS ORDERED: diazePAM 5 MG TABLET PO ONE (06:00)
[2021-03-30] MEDS ORDERED: methaDONE HCL 10 MG TABLET (FOR DETOX USE ONLY) PO ONE (10:00)
[2021-03-30] MEDS: PRENATAL VITAMINS W/ FOLIC ACID TABLET (FP) PO SCH (10:48)
[2021-03-30] MEDS: PANTOPRAZOLE 40 MG TABLET PO SCH (10:48)
[2021-03-30] MEDS: SERTRALINE HCL 50 MG TABLET (FP) PO SCH (10:48)
[2021-03-30] MEDS: METHOCARBAMOL 500 MG TABLET PO PRN (10:49)
[2021-03-30] MEDS: amLODIPine BESYLATE 10 MG TABLET (FP) PO SCH (10:49)
[2021-03-30] MEDS: hydrOXYzine PAMOATE 25 MG CAPSULE (FP) PO PRN (10:49)
[2021-03-30] MEDS: NICOTINE 14 MG/24 HOURS TOPICAL PATCH TD SCH (10:52)
[2021-03-30] MEDS ORDERED: NICOTINE 10 MG CARTRIDGE (INHALER) IH PRN (12:24)
[2021-03-30] MEDS ORDERED: COLLOIDAL OATMEAL 1 BAR EACH TP PRN (12:25)
[2021-03-30 14:46] LABS: HEMOGLOBIN 14.9 GM/dL (11.7-16.9); MCH 29.1 pg (25.7-33.7); MCHC 33.8 g/dl (32.0-35.9); MEAN CELL VOLUME 86.1 fl (80-96); MEAN PLT VOLUME 9.2 fl (7.5-11.1); PLATELET COUNT 173 10^3/uL (134-434); RBC 5.11 M/mm3 (4.00-5.60); RDW 15.4 % (11.9-15.9); WHITE BLOOD COUNT 4.7 K/mm3 (4.0-10.0)
[2021-03-30 14:49] LABS: ALBUMIN 4.3 g/dl (3.4-5.0)
[2021-03-30 14:51] LABS: CALCIUM 9.4 mg/dL (8.5-10.1)
[2021-03-30 14:52] LABS: BLOOD UREA NITROGEN 15.3 mg/dL (7-18)
[2021-03-30 14:55] LABS: CREATININE 0.9 mg/dL (0.55-1.3)
[2021-03-30 14:56] LABS: BILIRUBIN,TOTAL 0.7 mg/dL (0.2-1)
[2021-03-30 15:47] LABS: HIV INTERPRETATION NEGATIVE (NEGATIVE)
[2021-03-30] MEDS: traZODone HCL 50 MG TABLET (FP) PO SCH (22:41)
[2021-03-30] MEDS: BENZTROPINE MESYLATE 1 MG TABLET PO SCH (22:42)
[2021-03-30] MEDS: OLANZapine 10 MG TABLET PO SCH (22:42)
[2021-03-30] MEDS: THIAMINE HCL 100 MG TABLET (FP) PO SCH (23:29)
[2021-03-31 09:43] VITALS: BP 157/89; PULSE 60; TEMP 98.6
[2021-03-31] MEDS: PANTOPRAZOLE 40 MG TABLET PO SCH (10:02)
[2021-03-31] MEDS: hydrOXYzine PAMOATE 25 MG CAPSULE (FP) PO PRN (10:02)
[2021-03-31] MEDS: amLODIPine BESYLATE 10 MG TABLET (FP) PO SCH (10:02)
[2021-03-31] MEDS: PRENATAL VITAMINS W/ FOLIC ACID TABLET (FP) PO SCH (10:02)
[2021-03-31] MEDS: SERTRALINE HCL 50 MG TABLET (FP) PO SCH (10:02)
[2021-03-31] MEDS: NICOTINE 14 MG/24 HOURS TOPICAL PATCH TD SCH (10:03)
== END 2021-03-31 11:27 | disposition other institution (70) | DRG 773 ==
LOC: YASAS 19:07 → Y3N 21:36
PROVIDERS: ADMIT Allergy & Immunology; ATTEND Allergy & Immunology
PROC: HZ2ZZZZ Detoxification Services for Substance Abuse Treatment (ICD-10-PCS; principal; 2021-03-26)
DX: F11.23 Opioid dependence with withdrawal (principal); F14.20 Cocaine dependence, uncomplicated; F12.20 Cannabis dependence, uncomplicated; F17.210 Nicotine dependence, cigarettes, uncomplicated; F25.1 Schizoaffective disorder, depressive type; F31.9 Bipolar disorder, unspecified; I10 Essential (primary) hypertension; J45.20 Mild intermittent asthma, uncomplicated; K21.9 Gastro-esophageal reflux disease without esophagitis; R00.1 Bradycardia, unspecified; R26.2 Difficulty in walking, not elsewhere classified; Z99.89 Dependence on other enabling machines and devices; Z56.0 Unemployment, unspecified; Z59.0 Homelessness
CPT/HCPCS: 36415; 80053; 85027; 86780; 87389; C9803; Q0162; U0003; U0005

== ENCOUNTER 2021-03-31 11:29 | Inpatient (IN) | payer OTHER ==
[2021-03-31] MEDS ORDERED: ACETAMINOPHEN 325 MG TABLET (FP) PO PRN (11:51)
[2021-03-31] MEDS ORDERED: IBUPROFEN 400 MG TABLET (FP) PO PRN (11:51)
[2021-03-31] MEDS ORDERED: MAG HYDROX/AL HYDROX/SIMETH 30 ML UNIT-DOSE CUP PO PRN (11:51)
[2021-03-31] MEDS ORDERED: P-EPHED 60MG/TRIPROLIDI 2.5MG TABLET PO PRN (11:51)
[2021-03-31] MEDS ORDERED: guaiFENesin 200 MG/10 ML 10 ML UNIT-DOSE CUPS PO PRN (11:51)
[2021-03-31] MEDS ORDERED: MENTHOL/PHENOL 1 EACH UD MM PRN (11:51)
[2021-03-31] MEDS ORDERED: MAGNESIUM HYDROX 2400MG/30ML ORAL SUSPENSION 30 ML CUP PO PRN (11:51)
[2021-03-31] MEDS ORDERED: MAGNESIUM CITRATE 300 ML BOTTLE PO PRN (11:51)
[2021-03-31] MEDS ORDERED: LOPERAMIDE HCL 2 MG CAPSULE PO PRN (11:51)
[2021-03-31] MEDS ORDERED: ALBUTEROL SO4 HFA INHALER IH PRN (11:53)
[2021-03-31] MEDS ORDERED: TRIMETHOBENZAMIDE HCL 300 MG CAPSULE PO PRN (11:55)
[2021-03-31] MEDS: NICOTINE 10 MG CARTRIDGE (INHALER) IH PRN (16:59)
[2021-03-31] MEDS ORDERED: TRIMETHOBENZAMIDE HCL 200MG/2ML INJ IM ONE (20:42)
[2021-03-31] MEDS: BENZTROPINE MESYLATE 1 MG TABLET PO SCH (21:58)
[2021-03-31] MEDS: traZODone HCL 50 MG TABLET (FP) PO SCH (21:58)
[2021-03-31] MEDS: THIAMINE HCL 100 MG TABLET (FP) PO SCH (21:59)
[2021-03-31] MEDS: OLANZapine 10 MG TABLET PO SCH (21:59)
[2021-03-31] MEDS ORDERED: MELATONIN 5 MG TABLETS PO SCH (22:00)
[2021-03-31] MEDS ORDERED: PATIENT'S OWN MEDICATION (NON-FORMULARY) (Trazodone Hcl [Trazodone Hcl] 150 MG Tablet) PO SCH (22:00)
[2021-04-01] MEDS: hydrOXYzine PAMOATE 25 MG CAPSULE (FP) PO PRN ×2 (06:38→16:03)
[2021-04-01] MEDS ORDERED: PATIENT'S OWN MEDICATION (NON-FORMULARY) (Sertraline Hcl [Zoloft] 100 MG Tablet) PO SCH (10:00)
[2021-04-01] MEDS: SERTRALINE HCL 50 MG TABLET (FP) PO SCH (10:12)
[2021-04-01] MEDS: PRENATAL VITAMINS W/ FOLIC ACID TABLET (FP) PO SCH (10:12)
[2021-04-01] MEDS: amLODIPine BESYLATE 10 MG TABLET (FP) PO SCH (10:12)
[2021-04-01] MEDS: NICOTINE 7 MG/24 HOURS TOPICAL PATCH TD SCH (10:13)
[2021-04-01] MEDS: OLANZapine 10 MG TABLET PO SCH (21:39)
[2021-04-01] MEDS: BENZTROPINE MESYLATE 1 MG TABLET PO SCH (21:39)
[2021-04-01] MEDS: THIAMINE HCL 100 MG TABLET (FP) PO SCH (21:39)
[2021-04-01] MEDS: traZODone HCL 50 MG TABLET (FP) PO SCH (21:39)
[2021-04-02] MEDS: NICOTINE 7 MG/24 HOURS TOPICAL PATCH TD SCH (09:19)
[2021-04-02] MEDS: amLODIPine BESYLATE 10 MG TABLET (FP) PO SCH (09:19)
[2021-04-02] MEDS: SERTRALINE HCL 50 MG TABLET (FP) PO SCH (09:19)
[2021-04-02] MEDS: PRENATAL VITAMINS W/ FOLIC ACID TABLET (FP) PO SCH (09:19)
[2021-04-02] MEDS ORDERED: METHOCARBAMOL 500 MG TABLET PO PRN (11:49)
[2021-04-02] MEDS: COLLOIDAL OATMEAL 1 BAR EACH TP PRN (13:22)
[2021-04-02] MEDS: hydrOXYzine PAMOATE 25 MG CAPSULE (FP) PO PRN (15:44)
[2021-04-02] MEDS ORDERED: ONDANSETRON *ODT* 4 MG TABLET SL ONE (18:23)
[2021-04-02] MEDS ORDERED: TRIMETHOBENZAMIDE HCL 200MG/2ML INJ IM ONE (19:13)
[2021-04-02] MEDS: GABAPENTIN 100 MG CAPSULE PO SCH (22:29)
[2021-04-02] MEDS: THIAMINE HCL 100 MG TABLET (FP) PO SCH (22:29)
[2021-04-02] MEDS: BENZTROPINE MESYLATE 1 MG TABLET PO SCH (22:29)
[2021-04-02] MEDS: traZODone HCL 50 MG TABLET (FP) PO SCH (22:29)
[2021-04-02] MEDS: OLANZapine 10 MG TABLET PO SCH (22:31)
[2021-04-03] MEDS ORDERED: ONDANSETRON *ODT* 4 MG TABLET SL PRN (10:08)
[2021-04-03] MEDS: amLODIPine BESYLATE 10 MG TABLET (FP) PO SCH (10:10)
[2021-04-03] MEDS: SERTRALINE HCL 50 MG TABLET (FP) PO SCH (10:10)
[2021-04-03] MEDS: NICOTINE 7 MG/24 HOURS TOPICAL PATCH TD SCH (10:10)
[2021-04-03] MEDS: PRENATAL VITAMINS W/ FOLIC ACID TABLET (FP) PO SCH (10:10)
[2021-04-03] MEDS: GABAPENTIN 100 MG CAPSULE PO SCH ×2 (10:10→21:44)
[2021-04-03] MEDS ORDERED: BUPRENORPHINE/NALOXONE 2 MG/0.5 MG FILM PACKET SL ONE ×2 (14:15→18:00)
[2021-04-03] MEDS: traZODone HCL 50 MG TABLET (FP) PO SCH (21:44)
[2021-04-03] MEDS: BENZTROPINE MESYLATE 1 MG TABLET PO SCH (21:44)
[2021-04-03] MEDS: OLANZapine 10 MG TABLET PO SCH (21:44)
[2021-04-03] MEDS: THIAMINE HCL 100 MG TABLET (FP) PO SCH (21:45)
[2021-04-04] MEDS: BUPRENORPHINE/NALOXONE 4 MG/1 MG FILM PACKET SL SCH ×2 (06:29→17:51)
[2021-04-04] MEDS: GABAPENTIN 100 MG CAPSULE PO SCH ×2 (09:42→21:42)
[2021-04-04] MEDS: PRENATAL VITAMINS W/ FOLIC ACID TABLET (FP) PO SCH (09:43)
[2021-04-04] MEDS: SERTRALINE HCL 50 MG TABLET (FP) PO SCH (09:43)
[2021-04-04] MEDS: amLODIPine BESYLATE 10 MG TABLET (FP) PO SCH (09:43)
[2021-04-04] MEDS: NICOTINE 7 MG/24 HOURS TOPICAL PATCH TD SCH (09:44)
[2021-04-04] MEDS: THIAMINE HCL 100 MG TABLET (FP) PO SCH (21:42)
[2021-04-04] MEDS: traZODone HCL 50 MG TABLET (FP) PO SCH (21:42)
[2021-04-04] MEDS: hydrOXYzine PAMOATE 25 MG CAPSULE (FP) PO PRN (21:42)
[2021-04-04] MEDS: BENZTROPINE MESYLATE 1 MG TABLET PO SCH (21:42)
[2021-04-04] MEDS: OLANZapine 10 MG TABLET PO SCH (21:45)
[2021-04-05] MEDS: BUPRENORPHINE/NALOXONE 4 MG/1 MG FILM PACKET SL SCH (06:41)
[2021-04-05] MEDS: GABAPENTIN 100 MG CAPSULE PO SCH ×2 (09:15→21:16)
[2021-04-05] MEDS: PRENATAL VITAMINS W/ FOLIC ACID TABLET (FP) PO SCH (09:15)
[2021-04-05] MEDS: amLODIPine BESYLATE 10 MG TABLET (FP) PO SCH (09:15)
[2021-04-05] MEDS: NICOTINE 7 MG/24 HOURS TOPICAL PATCH TD SCH (09:15)
[2021-04-05] MEDS: SERTRALINE HCL 50 MG TABLET (FP) PO SCH (09:15)
[2021-04-05] MEDS: BUPRENORPHINE/NALOXONE 8 MG/2 MG FILM PACKET SL SCH (18:07)
[2021-04-05] MEDS: traZODone HCL 50 MG TABLET (FP) PO SCH (21:15)
[2021-04-05] MEDS: BENZTROPINE MESYLATE 1 MG TABLET PO SCH (21:16)
[2021-04-05] MEDS: THIAMINE HCL 100 MG TABLET (FP) PO SCH (21:16)
[2021-04-05] MEDS: OLANZapine 10 MG TABLET PO SCH (21:16)
[2021-04-05] MEDS: hydrOXYzine PAMOATE 25 MG CAPSULE (FP) PO PRN (21:17)
[2021-04-06] MEDS: BUPRENORPHINE/NALOXONE 8 MG/2 MG FILM PACKET SL SCH ×2 (06:29→17:36)
[2021-04-06] MEDS: COLLOIDAL OATMEAL 1 BAR EACH TP PRN (06:35)
[2021-04-06] MEDS: amLODIPine BESYLATE 10 MG TABLET (FP) PO SCH (09:34)
[2021-04-06] MEDS: NICOTINE 7 MG/24 HOURS TOPICAL PATCH TD SCH (09:34)
[2021-04-06] MEDS: SERTRALINE HCL 50 MG TABLET (FP) PO SCH (09:34)
[2021-04-06] MEDS: PRENATAL VITAMINS W/ FOLIC ACID TABLET (FP) PO SCH (09:34)
[2021-04-06] MEDS: GABAPENTIN 100 MG CAPSULE PO SCH ×2 (09:34→21:00)
[2021-04-06] MEDS: BENZTROPINE MESYLATE 1 MG TABLET PO SCH (21:00)
[2021-04-06] MEDS: OLANZapine 10 MG TABLET PO SCH (21:00)
[2021-04-06] MEDS: traZODone HCL 50 MG TABLET (FP) PO SCH (21:01)
[2021-04-06] MEDS: THIAMINE HCL 100 MG TABLET (FP) PO SCH (21:01)
[2021-04-07] MEDS: BUPRENORPHINE/NALOXONE 8 MG/2 MG FILM PACKET SL SCH ×2 (06:27→18:07)
[2021-04-07] MEDS: SERTRALINE HCL 50 MG TABLET (FP) PO SCH (09:26)
[2021-04-07] MEDS: GABAPENTIN 100 MG CAPSULE PO SCH ×2 (09:26→22:15)
[2021-04-07] MEDS: PRENATAL VITAMINS W/ FOLIC ACID TABLET (FP) PO SCH (09:26)
[2021-04-07] MEDS: amLODIPine BESYLATE 10 MG TABLET (FP) PO SCH (09:26)
[2021-04-07] MEDS: NICOTINE 7 MG/24 HOURS TOPICAL PATCH TD SCH (09:27)
[2021-04-07] MEDS: OLANZapine 10 MG TABLET PO SCH (22:15)
[2021-04-07] MEDS: traZODone HCL 50 MG TABLET (FP) PO SCH (22:15)
[2021-04-07] MEDS: BENZTROPINE MESYLATE 1 MG TABLET PO SCH (22:16)
[2021-04-07] MEDS: THIAMINE HCL 100 MG TABLET (FP) PO SCH (22:16)
[2021-04-08] MEDS: BUPRENORPHINE/NALOXONE 8 MG/2 MG FILM PACKET SL SCH ×2 (06:13→18:00)
[2021-04-08] MEDS: amLODIPine BESYLATE 10 MG TABLET (FP) PO SCH (09:23)
[2021-04-08] MEDS: GABAPENTIN 100 MG CAPSULE PO SCH ×2 (09:23→21:41)
[2021-04-08] MEDS: NICOTINE 7 MG/24 HOURS TOPICAL PATCH TD SCH (09:23)
[2021-04-08] MEDS: SERTRALINE HCL 50 MG TABLET (FP) PO SCH (09:24)
[2021-04-08] MEDS: PRENATAL VITAMINS W/ FOLIC ACID TABLET (FP) PO SCH (10:14)
[2021-04-08] MEDS: OLANZapine 10 MG TABLET PO SCH (21:41)
[2021-04-08] MEDS: traZODone HCL 50 MG TABLET (FP) PO SCH (21:41)
[2021-04-08] MEDS: BENZTROPINE MESYLATE 1 MG TABLET PO SCH (21:41)
[2021-04-08] MEDS: THIAMINE HCL 100 MG TABLET (FP) PO SCH (21:41)
[2021-04-09] MEDS: BUPRENORPHINE/NALOXONE 8 MG/2 MG FILM PACKET SL SCH ×2 (07:18→17:54)
[2021-04-09] MEDS: amLODIPine BESYLATE 10 MG TABLET (FP) PO SCH (09:33)
[2021-04-09] MEDS: SERTRALINE HCL 50 MG TABLET (FP) PO SCH (09:33)
[2021-04-09] MEDS: PRENATAL VITAMINS W/ FOLIC ACID TABLET (FP) PO SCH (09:33)
[2021-04-09] MEDS: GABAPENTIN 100 MG CAPSULE PO SCH ×2 (09:33→21:32)
[2021-04-09] MEDS: NICOTINE 7 MG/24 HOURS TOPICAL PATCH TD SCH (09:34)
[2021-04-09] MEDS: NICOTINE 10 MG CARTRIDGE (INHALER) IH PRN (10:02)
[2021-04-09] MEDS: THIAMINE HCL 100 MG TABLET (FP) PO SCH (21:32)
[2021-04-09] MEDS: BENZTROPINE MESYLATE 1 MG TABLET PO SCH (21:32)
[2021-04-09] MEDS: OLANZapine 10 MG TABLET PO SCH (21:32)
[2021-04-09] MEDS: traZODone HCL 50 MG TABLET (FP) PO SCH (21:34)
[2021-04-10] MEDS: BUPRENORPHINE/NALOXONE 8 MG/2 MG FILM PACKET SL SCH ×2 (06:46→17:50)
[2021-04-10] MEDS: NICOTINE 7 MG/24 HOURS TOPICAL PATCH TD SCH (09:19)
[2021-04-10] MEDS: amLODIPine BESYLATE 10 MG TABLET (FP) PO SCH (09:19)
[2021-04-10] MEDS: PRENATAL VITAMINS W/ FOLIC ACID TABLET (FP) PO SCH (09:19)
[2021-04-10] MEDS: GABAPENTIN 100 MG CAPSULE PO SCH ×2 (09:19→21:55)
[2021-04-10] MEDS: SERTRALINE HCL 50 MG TABLET (FP) PO SCH (09:20)
[2021-04-10] MEDS ORDERED: PT OWN MED DRAWER 7, Y5N ONE (10:33)
[2021-04-10] MEDS: traZODone HCL 50 MG TABLET (FP) PO SCH (21:54)
[2021-04-10] MEDS: OLANZapine 10 MG TABLET PO SCH (21:55)
[2021-04-10] MEDS: hydrOXYzine PAMOATE 25 MG CAPSULE (FP) PO PRN (21:55)
[2021-04-10] MEDS: BENZTROPINE MESYLATE 1 MG TABLET PO SCH (21:56)
[2021-04-10] MEDS: THIAMINE HCL 100 MG TABLET (FP) PO SCH (21:56)
[2021-04-11] MEDS: BUPRENORPHINE/NALOXONE 8 MG/2 MG FILM PACKET SL SCH ×2 (06:45→17:44)
[2021-04-11] MEDS: NICOTINE 10 MG CARTRIDGE (INHALER) IH PRN ×2 (07:54→17:44)
[2021-04-11] MEDS: SERTRALINE HCL 50 MG TABLET (FP) PO SCH (09:18)
[2021-04-11] MEDS: PRENATAL VITAMINS W/ FOLIC ACID TABLET (FP) PO SCH (09:19)
[2021-04-11] MEDS: NICOTINE 7 MG/24 HOURS TOPICAL PATCH TD SCH (09:19)
[2021-04-11] MEDS: amLODIPine BESYLATE 10 MG TABLET (FP) PO SCH (09:19)
[2021-04-11] MEDS: GABAPENTIN 100 MG CAPSULE PO SCH ×2 (09:19→21:01)
[2021-04-11] MEDS: COLLOIDAL OATMEAL 1 BAR EACH TP PRN (09:20)
[2021-04-11] MEDS: traZODone HCL 50 MG TABLET (FP) PO SCH (21:01)
[2021-04-11] MEDS: OLANZapine 10 MG TABLET PO SCH (21:01)
[2021-04-11] MEDS: THIAMINE HCL 100 MG TABLET (FP) PO SCH (21:01)
[2021-04-11] MEDS: BENZTROPINE MESYLATE 1 MG TABLET PO SCH (21:01)
[2021-04-12] MEDS: BUPRENORPHINE/NALOXONE 8 MG/2 MG FILM PACKET SL SCH (06:04)
[2021-04-12 07:08] VITALS: TEMP 97.1
[2021-04-12 08:59] VITALS: BP 104/73; PULSE 75
[2021-04-12] MEDS: GABAPENTIN 100 MG CAPSULE PO SCH (09:35)
[2021-04-12] MEDS: PRENATAL VITAMINS W/ FOLIC ACID TABLET (FP) PO SCH (09:35)
[2021-04-12] MEDS: amLODIPine BESYLATE 10 MG TABLET (FP) PO SCH (09:35)
[2021-04-12] MEDS: NICOTINE 7 MG/24 HOURS TOPICAL PATCH TD SCH (09:35)
[2021-04-12] MEDS: SERTRALINE HCL 50 MG TABLET (FP) PO SCH (09:35)
== END 2021-04-12 09:44 | disposition home or self-care (01) | DRG 772 ==
LOC: YASAS 11:29 → Y3E 11:32
PROVIDERS: ADMIT Allergy & Immunology; ATTEND Allergy & Immunology
PROC: HZ42ZZZ Group Counseling for Substance Abuse Treatment, Cognitive-Behavioral (ICD-10-PCS; principal; 2021-03-31)
DX: F11.20 Opioid dependence, uncomplicated (principal); F14.20 Cocaine dependence, uncomplicated; F12.20 Cannabis dependence, uncomplicated; F17.210 Nicotine dependence, cigarettes, uncomplicated; I10 Essential (primary) hypertension; K21.9 Gastro-esophageal reflux disease without esophagitis; J45.909 Unspecified asthma, uncomplicated; G62.9 Polyneuropathy, unspecified; R26.2 Difficulty in walking, not elsewhere classified; Z99.89 Dependence on other enabling machines and devices; Z59.0 Homelessness

== ENCOUNTER 2021-10-25 16:56 | Inpatient (IN) | payer OTHER ==
[2021-10-25 18:01] VITALS: BMI 22.3
[2021-10-25] MEDS ORDERED: MAG HYDROX/AL HYDROX/SIMETH 30 ML UNIT-DOSE CUP PO PRN (19:51)
[2021-10-25] MEDS ORDERED: BISMUTH SUBSALICYLATE 524 MG/30 ML PO PRN (19:51)
[2021-10-25] MEDS ORDERED: ONDANSETRON *ODT* 4 MG TABLET SL PRN (19:51)
[2021-10-25] MEDS ORDERED: MENTHOL/PHENOL 1 EACH UD MM PRN (19:51)
[2021-10-25] MEDS ORDERED: LOPERAMIDE HCL 2 MG CAPSULE PO PRN (19:51)
[2021-10-25] MEDS ORDERED: methaDONE HCL 10 MG TABLET (FOR DETOX USE ONLY) PO ONE (19:51)
[2021-10-25] MEDS ORDERED: IBUPROFEN 400 MG TABLET (FP) PO PRN (19:51)
[2021-10-25] MEDS ORDERED: MAGNESIUM HYDROX 2400MG/30ML ORAL SUSPENSION 30 ML CUP PO PRN (19:51)
[2021-10-25] MEDS ORDERED: ACETAMINOPHEN 325 MG TABLET (FP) PO PRN ×2 (19:51)
[2021-10-25] MEDS ORDERED: NICOTINE 10 MG CARTRIDGE (INHALER) IH PRN (19:51)
[2021-10-25] MEDS ORDERED: MAGNESIUM CITRATE 300 ML BOTTLE PO PRN (19:51)
[2021-10-25] MEDS ORDERED: ALBUTEROL SO4 HFA INHALER IH PRN (19:53)
[2021-10-25] MEDS ORDERED: MELATONIN 5 MG TABLETS PO SCH (22:00)
[2021-10-25] MEDS: hydrOXYzine PAMOATE 25 MG CAPSULE (FP) PO SCH (22:29)
[2021-10-25] MEDS: THIAMINE HCL 100 MG TABLET (FP) PO SCH (22:29)
[2021-10-25] MEDS: GABAPENTIN 300 MG CAPSULE PO SCH (22:29)
[2021-10-26] MEDS: hydrOXYzine PAMOATE 25 MG CAPSULE (FP) PO SCH ×5 (07:06→22:31)
[2021-10-26] MEDS ORDERED: methaDONE HCL 10 MG TABLET (FOR DETOX USE ONLY) ONE (09:57)
[2021-10-26] MEDS: amLODIPine BESYLATE 10 MG TABLET (FP) PO SCH (10:30)
[2021-10-26] MEDS: PANTOPRAZOLE 40 MG TABLET PO SCH (10:30)
[2021-10-26] MEDS: GABAPENTIN 300 MG CAPSULE PO SCH ×2 (10:30→22:31)
[2021-10-26] MEDS: diazePAM 5 MG TABLET PO PRN (10:31)
[2021-10-26] MEDS: METHOCARBAMOL 500 MG TABLET PO PRN (10:31)
[2021-10-26] MEDS: PRENATAL VITAMINS W/ FOLIC ACID TABLET (FP) PO SCH (10:32)
[2021-10-26 11:58] LABS: HEMOGLOBIN 9.7 GM/dL (11.7-16.9); MCH 29.5 pg (25.7-33.7); MCHC 33.5 g/dl (32.0-35.9); MEAN PLT VOLUME 8.4 fl (7.5-11.1); PLATELET COUNT 162 10^3/uL (134-434); RDW 13.4 % (11.9-15.9); WHITE BLOOD COUNT 4.1 K/mm3 (4.0-10.0)
[2021-10-26 12:10] LABS: CALCIUM 8.2 mg/dL (8.5-10.1); CREATININE 0.7 mg/dL (0.55-1.3)
[2021-10-26 12:12] LABS: BILIRUBIN,TOTAL 0.4 mg/dL (0.2-1); TOT PROT 6.9 g/dl (6.4-8.2)
[2021-10-26] MEDS: OLANZapine 5 MG TABLET PO SCH (22:31)
[2021-10-26] MEDS: traZODone HCL 50 MG TABLET (FP) PO SCH (22:31)
[2021-10-26] MEDS: THIAMINE HCL 100 MG TABLET (FP) PO SCH (22:31)
[2021-10-26] MEDS: BENZTROPINE MESYLATE 1 MG TABLET PO SCH (22:31)
[2021-10-27] MEDS: hydrOXYzine PAMOATE 25 MG CAPSULE (FP) PO SCH ×4 (06:18→23:56)
[2021-10-27] MEDS: PANTOPRAZOLE 40 MG TABLET PO SCH (09:10)
[2021-10-27] MEDS: amLODIPine BESYLATE 10 MG TABLET (FP) PO SCH (09:10)
[2021-10-27] MEDS: diazePAM 5 MG TABLET PO PRN ×2 (09:10→14:22)
[2021-10-27] MEDS: METHOCARBAMOL 500 MG TABLET PO PRN (09:11)
[2021-10-27] MEDS: GABAPENTIN 300 MG CAPSULE PO SCH ×2 (09:11→23:57)
[2021-10-27] MEDS: PRENATAL VITAMINS W/ FOLIC ACID TABLET (FP) PO SCH (09:14)
[2021-10-27] MEDS: cloNIDine HCL 0.1 MG TABLET PO PRN ×2 (09:15→14:22)
[2021-10-27] MEDS ORDERED: methaDONE HCL 10 MG TABLET (FOR DETOX USE ONLY) PO ONE (10:00)
[2021-10-27] MEDS ORDERED: SERTRALINE HCL 50 MG TABLET (FP) PO SCH ×2 (10:00)
[2021-10-27] MEDS ORDERED: TRIMETHOBENZAMIDE HCL 200MG/2ML INJ IM ONE (11:39)
[2021-10-27 12:08] LABS: SARS-CoV-2 NAA Not Detected (Not Detected)
[2021-10-27 13:11] VITALS: BP 170/74; PULSE 90; TEMP 96.9
[2021-10-27] MEDS: BENZTROPINE MESYLATE 1 MG TABLET PO SCH (23:56)
[2021-10-27] MEDS: THIAMINE HCL 100 MG TABLET (FP) PO SCH (23:57)
[2021-10-27] MEDS: traZODone HCL 50 MG TABLET (FP) PO SCH (23:57)
[2021-10-27] MEDS: OLANZapine 5 MG TABLET PO SCH (23:57)
[2021-10-28] MEDS: hydrOXYzine PAMOATE 25 MG CAPSULE (FP) PO SCH (06:23)
[2021-10-29] MEDS ORDERED: methaDONE HCL 10 MG TABLET (FOR DETOX USE ONLY) PO ONE (10:00)
== END 2021-10-27 15:19 | disposition short-term general hospital (02) | DRG 773 ==
LOC: YASAS 16:56 → Y3N 20:12
PROVIDERS: ADMIT Allergy & Immunology; ATTEND Allergy & Immunology
PROC: HZ2ZZZZ Detoxification Services for Substance Abuse Treatment (ICD-10-PCS; principal; 2021-10-25)
DX: F11.23 Opioid dependence with withdrawal (principal); F14.20 Cocaine dependence, uncomplicated; F13.20 Sedative, hypnotic or anxiolytic dependence, uncomplicated; F12.20 Cannabis dependence, uncomplicated; F17.210 Nicotine dependence, cigarettes, uncomplicated; F20.9 Schizophrenia, unspecified; D64.9 Anemia, unspecified; E78.5 Hyperlipidemia, unspecified; I10 Essential (primary) hypertension; J45.909 Unspecified asthma, uncomplicated; R10.9 Unspecified abdominal pain; R11.10 Vomiting, unspecified; Z59.02 Unsheltered homelessness
CPT/HCPCS: 36415; 80053; 85027; 86780; 87811; 93005; 93010; C9803; J0735; U0003; U0005

== ENCOUNTER 2021-10-29 14:23 | Inpatient (IN) | payer OTHER ==
[2021-10-29 16:08] VITALS: BMI 21.2
[2021-10-29] MEDS ORDERED: ONDANSETRON *ODT* 4 MG TABLET SL PRN (17:09)
[2021-10-29] MEDS ORDERED: MAG HYDROX/AL HYDROX/SIMETH 30 ML UNIT-DOSE CUP PO PRN (17:09)
[2021-10-29] MEDS ORDERED: MENTHOL/PHENOL 1 EACH UD MM PRN (17:09)
[2021-10-29] MEDS ORDERED: MAGNESIUM HYDROX 2400MG/30ML ORAL SUSPENSION 30 ML CUP PO PRN (17:09)
[2021-10-29] MEDS ORDERED: BISMUTH SUBSALICYLATE 524 MG/30 ML PO PRN (17:09)
[2021-10-29] MEDS ORDERED: MAGNESIUM CITRATE 300 ML BOTTLE PO PRN (17:09)
[2021-10-29] MEDS ORDERED: IBUPROFEN 600 MG TABLET (FP) PO PRN (17:09)
[2021-10-29] MEDS ORDERED: guaiFENesin 200 MG/10 ML 10 ML UNIT-DOSE CUPS PO PRN (17:09)
[2021-10-29] MEDS ORDERED: ACETAMINOPHEN 325 MG TABLET (FP) PO PRN ×2 (17:09)
[2021-10-29] MEDS ORDERED: LOPERAMIDE HCL 2 MG CAPSULE PO PRN (17:09)
[2021-10-29] MEDS ORDERED: P-EPHED 60MG/TRIPROLIDI 2.5MG TABLET PO PRN (17:09)
[2021-10-29] MEDS ORDERED: METHOCARBAMOL 500 MG TABLET PO PRN (17:09)
[2021-10-29] MEDS ORDERED: MELATONIN 5 MG TABLETS PO PRN (17:09)
[2021-10-29] MEDS ORDERED: ALBUTEROL SO4 HFA INHALER IH PRN (17:11)
[2021-10-29] MEDS ORDERED: THIAMINE HCL 100 MG TABLET (FP) PO SCH (22:00)
[2021-10-29] MEDS: GABAPENTIN 300 MG CAPSULE PO SCH (22:12)
[2021-10-29] MEDS: hydrOXYzine PAMOATE 25 MG CAPSULE (FP) PO PRN (22:13)
[2021-10-30] MEDS: hydrOXYzine PAMOATE 25 MG CAPSULE (FP) PO PRN (02:43)
[2021-10-30] MEDS: GABAPENTIN 300 MG CAPSULE PO SCH (09:53)
[2021-10-30] MEDS ORDERED: SERTRALINE HCL 50 MG TABLET (FP) PO SCH (10:00)
[2021-10-30] MEDS ORDERED: amLODIPine BESYLATE 10 MG TABLET (FP) PO SCH (10:00)
[2021-10-30] MEDS ORDERED: PANTOPRAZOLE 40 MG TABLET PO SCH (10:00)
[2021-10-30] MEDS ORDERED: PRENATAL VITAMINS W/ FOLIC ACID TABLET (FP) PO SCH (10:00)
[2021-10-30] MEDS ORDERED: cloNIDine HCL 0.1 MG TABLET PO PRN (11:34)
[2021-10-30 13:02] VITALS: BP 120/89; PULSE 80; TEMP 97.3
[2021-10-30 13:05] LABS: HIV INTERPRETATION NEGATIVE (NEGATIVE)
[2021-10-30 13:47] LABS: URINE APPEARANCE CLEAR; URINE BILIRUBIN NEGATIVE (NEGATIVE); URINE COLOR YELLOW; URINE GLUCOSE (UA) NEGATIVE (NEGATIVE); URINE KETONE TRACE (NEGATIVE); URINE LEUK ESTERASE NEGATIVE (NEGATIVE); URINE NITRITE NEGATIVE (NEGATIVE); URINE PROTEIN NEGATIVE (NEGATIVE)
[2021-10-30] MEDS ORDERED: traZODone HCL 100 MG TABLET (FP) PO SCH (22:00)
[2021-10-30] MEDS ORDERED: BENZTROPINE MESYLATE 1 MG TABLET PO SCH (22:00)
[2021-10-30] MEDS ORDERED: OLANZapine 10 MG TABLET PO SCH (22:00)
== END 2021-10-30 14:15 | disposition other institution (70) | DRG 773 ==
LOC: YASAS 14:23 → Y6N 19:07
PROVIDERS: ADMIT Allergy & Immunology; ATTEND Allergy & Immunology
PROC: HZ2ZZZZ Detoxification Services for Substance Abuse Treatment (ICD-10-PCS; principal; 2021-10-29)
DX: F11.23 Opioid dependence with withdrawal (principal); F14.20 Cocaine dependence, uncomplicated; F13.10 Sedative, hypnotic or anxiolytic abuse, uncomplicated; F12.20 Cannabis dependence, uncomplicated; F17.210 Nicotine dependence, cigarettes, uncomplicated; F19.282 Other psychoactive substance dependence with psychoactive substance-induced sleep disorder; F25.1 Schizoaffective disorder, depressive type; G62.9 Polyneuropathy, unspecified; D64.9 Anemia, unspecified; I10 Essential (primary) hypertension; J45.909 Unspecified asthma, uncomplicated; K21.9 Gastro-esophageal reflux disease without esophagitis; Z56.0 Unemployment, unspecified; Z59.00 Homelessness unspecified
CPT/HCPCS: 36415; 71045-TC-FY; 80053; 80061; 80307; 81003; 82962; 83690; 83735; 84100; 84443; 84484; 85025; 85610; 85730; 87389; 87811; 93005; 93010; 99285-25; G0378; J0735

== ENCOUNTER 2021-10-30 14:26 | Inpatient (IN) | payer OTHER ==
[~2021-10-30 14:26] MED LIST: ACETAMINOPHEN 325 MG TABLET (FP) PO PRN; IBUPROFEN 400 MG TABLET (FP) PO PRN; LOPERAMIDE HCL 2 MG CAPSULE PO PRN; MAG HYDROX/AL HYDROX/SIMETH 30 ML UNIT-DOSE CUP PO PRN; MAGNESIUM CITRATE 300 ML BOTTLE PO PRN; MAGNESIUM HYDROX 2400MG/30ML ORAL SUSPENSION 30 ML CUP PO PRN; NICOTINE 10 MG CARTRIDGE (INHALER) IH PRN; P-EPHED 60MG/TRIPROLIDI 2.5MG TABLET PO PRN; guaiFENesin 200 MG/10 ML 10 ML UNIT-DOSE CUPS PO PRN
[2021-10-30] MEDS: hydrOXYzine PAMOATE 25 MG CAPSULE (FP) PO SCH ×3 (15:33→23:23)
[2021-10-30] MEDS ORDERED: THIAMINE HCL 100 MG TABLET (FP) PO SCH (22:00)
[2021-10-30] MEDS ORDERED: MELATONIN 5 MG TABLETS PO SCH (22:00)
[2021-10-30] MEDS ORDERED: BENZTROPINE MESYLATE 1 MG TABLET PO SCH (22:00)
[2021-10-30] MEDS ORDERED: traZODone HCL 100 MG TABLET (FP) PO SCH (22:00)
[2021-10-30] MEDS ORDERED: OLANZapine 10 MG TABLET PO SCH (22:00)
[2021-10-30] MEDS: GABAPENTIN 300 MG CAPSULE PO SCH (23:22)
[2021-10-31] MEDS: hydrOXYzine PAMOATE 25 MG CAPSULE (FP) PO SCH ×2 (06:03→11:11)
[2021-10-31 07:10] VITALS: BP 140/84; PULSE 71; TEMP 98.2
[2021-10-31] MEDS ORDERED: SERTRALINE HCL 50 MG TABLET (FP) PO SCH (10:00)
[2021-10-31] MEDS ORDERED: amLODIPine BESYLATE 10 MG TABLET (FP) PO SCH (10:00)
[2021-10-31] MEDS ORDERED: PANTOPRAZOLE 40 MG TABLET PO SCH (10:00)
[2021-10-31] MEDS ORDERED: PRENATAL VITAMINS W/ FOLIC ACID TABLET (FP) PO SCH (10:00)
[2021-10-31] MEDS ORDERED: NICOTINE 7 MG/24 HOURS TOPICAL PATCH TD SCH (10:00)
[2021-10-31] MEDS: GABAPENTIN 300 MG CAPSULE PO SCH (11:11)
== END 2021-10-31 08:40 | disposition left against medical advice (07) | DRG 770 ==
LOC: YASAS 14:26 → Y5N 14:28
PROVIDERS: ADMIT Allergy & Immunology; ATTEND Allergy & Immunology
PROC: HZ42ZZZ Group Counseling for Substance Abuse Treatment, Cognitive-Behavioral (ICD-10-PCS; principal; 2021-10-30)
DX: F11.20 Opioid dependence, uncomplicated (principal); F14.20 Cocaine dependence, uncomplicated; F12.20 Cannabis dependence, uncomplicated; F17.210 Nicotine dependence, cigarettes, uncomplicated; K21.9 Gastro-esophageal reflux disease without esophagitis; G62.9 Polyneuropathy, unspecified; Z91.19 Patient's noncompliance with other medical treatment and regimen

== ENCOUNTER 2021-11-12 18:35 | Inpatient (IN) | payer OTHER ==
[2021-11-12 19:12] VITALS: BMI 22.0
[2021-11-12] MEDS ORDERED: LOPERAMIDE HCL 2 MG CAPSULE PO PRN (21:00)
[2021-11-12] MEDS ORDERED: PROCHLORPERAZINE MALEATE 5 MG TABLET PO PRN (21:00)
[2021-11-12] MEDS ORDERED: P-EPHED 60MG/TRIPROLIDI 2.5MG TABLET PO PRN (21:00)
[2021-11-12] MEDS ORDERED: ACETAMINOPHEN 325 MG TABLET (FP) PO PRN ×2 (21:00)
[2021-11-12] MEDS ORDERED: IBUPROFEN 400 MG TABLET (FP) PO PRN (21:00)
[2021-11-12] MEDS ORDERED: MAGNESIUM HYDROX 2400MG/30ML ORAL SUSPENSION 30 ML CUP PO PRN (21:00)
[2021-11-12] MEDS ORDERED: MENTHOL/PHENOL 1 EACH UD MM PRN (21:00)
[2021-11-12] MEDS ORDERED: clonazePAM 0.5 MG ODT TABLETS SL PRN (21:00)
[2021-11-12] MEDS ORDERED: guaiFENesin 200 MG/10 ML 10 ML UNIT-DOSE CUPS PO PRN (21:00)
[2021-11-12] MEDS ORDERED: MAG HYDROX/AL HYDROX/SIMETH 30 ML UNIT-DOSE CUP PO PRN (21:00)
[2021-11-12] MEDS ORDERED: MAGNESIUM CITRATE 300 ML BOTTLE PO PRN (21:00)
[2021-11-12] MEDS ORDERED: methaDONE HCL 10 MG TABLET (FOR DETOX USE ONLY) PO ONE (21:00)
[2021-11-12] MEDS ORDERED: NICOTINE POLACRILEX 2 MG GUM BUC PRN (21:00)
[2021-11-12] MEDS ORDERED: NALOXONE HCL 0.4 MG/ML VIAL IM PRN (21:00)
[2021-11-12] MEDS ORDERED: cloNIDine HCL 0.1 MG TABLET PO PRN (21:00)
[2021-11-12] MEDS ORDERED: DICYCLOMINE HCL 10 MG CAPSULE PO PRN (21:00)
[2021-11-12] MEDS ORDERED: BISMUTH SUBSALICYLATE 524 MG/30 ML PO PRN (21:00)
[2021-11-12] MEDS ORDERED: NALOXONE (NARCAN) HCL 4 MG/0.1 ML SPRAY NS PRN (21:00)
[2021-11-12] MEDS ORDERED: MELATONIN 5 MG TABLETS PO SCH (22:00)
[2021-11-13] MEDS ORDERED: methaDONE HCL 10 MG TABLET (FOR DETOX USE ONLY) PO ONE ×2 (02:54→10:00)
[2021-11-13] MEDS: THIAMINE HCL 100 MG TABLET (FP) PO SCH ×2 (03:04→23:12)
[2021-11-13] MEDS: amLODIPine BESYLATE 10 MG TABLET (FP) PO SCH (10:24)
[2021-11-13] MEDS: PRENATAL VITAMINS W/ FOLIC ACID TABLET (FP) PO SCH (10:24)
[2021-11-13] MEDS: METHOCARBAMOL 500 MG TABLET PO PRN ×2 (10:24→17:26)
[2021-11-13] MEDS: NICOTINE 14 MG/24 HOURS TOPICAL PATCH TD SCH (10:25)
[2021-11-13 10:50] LABS: HEMATOCRIT 31.1 % (35.4-49); HEMOGLOBIN 10.4 GM/dL (11.7-16.9); MCH 29.4 pg (25.7-33.7); MCHC 33.4 g/dl (32.0-35.9); MEAN CELL VOLUME 87.9 fl (80-96); MEAN PLT VOLUME 8.3 fl (7.5-11.1); PLATELET COUNT 156 10^3/uL (134-434); RBC 3.54 M/mm3 (4.00-5.60); WHITE BLOOD COUNT 2.6 K/mm3 (4.0-10.0)
[2021-11-13 11:24] LABS: ALBUMIN 3.1 g/dl (3.4-5.0); CALCIUM 8.4 mg/dL (8.5-10.1)
[2021-11-13 11:25] LABS: BLOOD UREA NITROGEN 20.1 mg/dL (7-18)
[2021-11-13 11:27] LABS: CREATININE 0.7 mg/dL (0.55-1.3)
[2021-11-13 11:29] LABS: BILIRUBIN,TOTAL 0.2 mg/dL (0.2-1); TOT PROT 6.4 g/dl (6.4-8.2)
[2021-11-13] MEDS: SERTRALINE HCL 50 MG TABLET (FP) PO SCH (13:34)
[2021-11-13] MEDS: diazePAM 5 MG TABLET PO PRN (17:26)
[2021-11-13] MEDS: OLANZapine 10 MG TABLET PO SCH (23:12)
[2021-11-13] MEDS: BENZTROPINE MESYLATE 1 MG TABLET PO SCH (23:12)
[2021-11-13] MEDS: GABAPENTIN 300 MG CAPSULE PO SCH (23:12)
[2021-11-13] MEDS: traZODone HCL 100 MG TABLET (FP) PO SCH (23:12)
[2021-11-14] MEDS ORDERED: methaDONE HCL 10 MG TABLET (FOR DETOX USE ONLY) PO ONE (10:00)
[2021-11-14] MEDS: GABAPENTIN 300 MG CAPSULE PO SCH ×2 (10:29→22:33)
[2021-11-14] MEDS: NICOTINE 14 MG/24 HOURS TOPICAL PATCH TD SCH (10:29)
[2021-11-14] MEDS: PRENATAL VITAMINS W/ FOLIC ACID TABLET (FP) PO SCH (10:29)
[2021-11-14] MEDS: SERTRALINE HCL 50 MG TABLET (FP) PO SCH (10:29)
[2021-11-14] MEDS: amLODIPine BESYLATE 10 MG TABLET (FP) PO SCH (10:29)
[2021-11-14] MEDS ORDERED: COLLOIDAL OATMEAL 1 BAR EACH TP PRN (13:59)
[2021-11-14 14:07] LABS: SARS-CoV-2 NAA Not Detected (Not Detected)
[2021-11-14] MEDS: METHOCARBAMOL 500 MG TABLET PO PRN (17:56)
[2021-11-14] MEDS: diazePAM 5 MG TABLET PO PRN (17:56)
[2021-11-14] MEDS: traZODone HCL 100 MG TABLET (FP) PO SCH (22:33)
[2021-11-14] MEDS: BENZTROPINE MESYLATE 1 MG TABLET PO SCH (22:33)
[2021-11-14] MEDS: THIAMINE HCL 100 MG TABLET (FP) PO SCH (22:33)
[2021-11-14] MEDS: OLANZapine 10 MG TABLET PO SCH (22:33)
[2021-11-15] MEDS ORDERED: methaDONE HCL 10 MG TABLET (FOR DETOX USE ONLY) ONE (09:04)
[2021-11-15] MEDS: PRENATAL VITAMINS W/ FOLIC ACID TABLET (FP) PO SCH (10:24)
[2021-11-15] MEDS: SERTRALINE HCL 50 MG TABLET (FP) PO SCH (10:24)
[2021-11-15] MEDS: amLODIPine BESYLATE 10 MG TABLET (FP) PO SCH (10:24)
[2021-11-15] MEDS: GABAPENTIN 300 MG CAPSULE PO SCH (10:24)
[2021-11-15] MEDS: NICOTINE 14 MG/24 HOURS TOPICAL PATCH TD SCH (10:25)
[2021-11-15] MEDS: diazePAM 5 MG TABLET PO PRN (17:58)
[2021-11-15] MEDS: NICOTINE 10 MG CARTRIDGE (INHALER) IH SCH (20:15)
[2021-11-16] MEDS: BENZTROPINE MESYLATE 1 MG TABLET PO SCH (00:46)
[2021-11-16] MEDS: TOLNAFTATE 1% CREAM 15 GM TUBE TP SCH ×2 (00:46→10:08)
[2021-11-16] MEDS: traZODone HCL 100 MG TABLET (FP) PO SCH (00:46)
[2021-11-16] MEDS: GABAPENTIN 300 MG CAPSULE PO SCH ×2 (00:46→10:08)
[2021-11-16] MEDS: THIAMINE HCL 100 MG TABLET (FP) PO SCH (00:46)
[2021-11-16] MEDS: OLANZapine 10 MG TABLET PO SCH (00:47)
[2021-11-16] MEDS ORDERED: methaDONE HCL 10 MG TABLET (FOR DETOX USE ONLY) PO ONE (10:00)
[2021-11-16] MEDS: PRENATAL VITAMINS W/ FOLIC ACID TABLET (FP) PO SCH (10:07)
[2021-11-16] MEDS: amLODIPine BESYLATE 10 MG TABLET (FP) PO SCH (10:08)
[2021-11-16] MEDS: NICOTINE 10 MG CARTRIDGE (INHALER) IH SCH (10:08)
[2021-11-16] MEDS: SERTRALINE HCL 50 MG TABLET (FP) PO SCH (10:08)
[2021-11-16] MEDS: NICOTINE 14 MG/24 HOURS TOPICAL PATCH TD SCH (10:08)
[2021-11-16 17:27] VITALS: BP 106/67; PULSE 79; TEMP 98.7
== END 2021-11-16 18:11 | disposition home or self-care (01) | DRG 773 ==
LOC: YASAS 18:35 → Y6N 11-13 02:09
PROVIDERS: ADMIT Allergy & Immunology; ATTEND Allergy & Immunology
PROC: HZ2ZZZZ Detoxification Services for Substance Abuse Treatment (ICD-10-PCS; principal; 2021-11-13)
DX: F11.23 Opioid dependence with withdrawal (principal); F14.20 Cocaine dependence, uncomplicated; F13.20 Sedative, hypnotic or anxiolytic dependence, uncomplicated; F12.20 Cannabis dependence, uncomplicated; F17.210 Nicotine dependence, cigarettes, uncomplicated; F19.282 Other psychoactive substance dependence with psychoactive substance-induced sleep disorder; F25.1 Schizoaffective disorder, depressive type; D64.9 Anemia, unspecified; D72.819 Decreased white blood cell count, unspecified; I10 Essential (primary) hypertension; K21.9 Gastro-esophageal reflux disease without esophagitis; J45.20 Mild intermittent asthma, uncomplicated; M17.12 Unilateral primary osteoarthritis, left knee; W19.XXXA Unspecified fall, initial encounter; Y92.232 Corridor of hospital as the place of occurrence of the external cause; Z59.00 Homelessness unspecified; Z56.0 Unemployment, unspecified
CPT/HCPCS: 36415; 80053; 85027; 86780; C9803; J0735; U0003; U0005

== ENCOUNTER 2021-12-31 23:49 | Inpatient (IN) | payer OTHER ==
[2022-01-01] MEDS ORDERED: ONDANSETRON *ODT* 4 MG TABLET SL PRN (09:27)
[2022-01-01] MEDS ORDERED: MAGNESIUM HYDROX 2400MG/30ML ORAL SUSPENSION 30 ML CUP PO PRN (09:27)
[2022-01-01] MEDS ORDERED: LOPERAMIDE HCL 2 MG CAPSULE PO PRN (09:27)
[2022-01-01] MEDS ORDERED: MAGNESIUM CITRATE 300 ML BOTTLE PO PRN (09:27)
[2022-01-01] MEDS ORDERED: MAG HYDROX/AL HYDROX/SIMETH 30 ML UNIT-DOSE CUP PO PRN (09:27)
[2022-01-01] MEDS ORDERED: methaDONE HCL 10 MG TABLET (FOR DETOX USE ONLY) PO ONE (09:27)
[2022-01-01] MEDS ORDERED: BISMUTH SUBSALICYLATE 262 MG/15 ML BTL PO PRN (09:27)
[2022-01-01] MEDS ORDERED: NICOTINE 10 MG CARTRIDGE (INHALER) IH PRN (09:27)
[2022-01-01] MEDS ORDERED: cloNIDine HCL 0.1 MG TABLET PO PRN (09:27)
[2022-01-01] MEDS ORDERED: IBUPROFEN 400 MG TABLET (FP) PO PRN (09:27)
[2022-01-01] MEDS ORDERED: ACETAMINOPHEN 325 MG TABLET (FP) PO PRN ×2 (09:27)
[2022-01-01] MEDS ORDERED: DICYCLOMINE HCL 10 MG CAPSULE PO PRN (09:27)
[2022-01-01] MEDS ORDERED: BENZOCAINE/MENTHOL (CHLORASEPTIC ) LOZENGE MM PRN (09:27)
[2022-01-01 09:36] VITALS: BMI 26.3
[2022-01-01] MEDS: amLODIPine BESYLATE 10 MG TABLET (FP) PO SCH (12:00)
[2022-01-01] MEDS: PANTOPRAZOLE 40 MG TABLET PO SCH (12:00)
[2022-01-01] MEDS: METHOCARBAMOL 500 MG TABLET PO PRN (12:00)
[2022-01-01] MEDS: hydrOXYzine PAMOATE 25 MG CAPSULE (FP) PO SCH ×4 (12:00→22:55)
[2022-01-01] MEDS: PRENATAL VITAMINS W/ FOLIC ACID TABLET (FP) PO SCH (12:02)
[2022-01-01] MEDS: NICOTINE 14 MG/24 HOURS TOPICAL PATCH TD SCH (12:02)
[2022-01-01 17:17] LABS: HEMATOCRIT 26.9 % (35.4-49); MCH 29.4 pg (25.7-33.7); MCHC 33.5 g/dl (32.0-35.9); MEAN CELL VOLUME 87.9 fl (80-96); MEAN PLT VOLUME 8.5 fl (7.5-11.1); PLATELET COUNT 157 10^3/uL (134-434); RBC 3.06 M/mm3 (4.00-5.60); RDW 14.6 % (11.9-15.9); WHITE BLOOD COUNT 2.4 K/mm3 (4.0-10.0)
[2022-01-01 17:19] LABS: CALCIUM 8.3 mg/dL (8.5-10.1)
[2022-01-01 17:20] LABS: ALBUMIN 3.1 g/dl (3.4-5.0); BLOOD UREA NITROGEN 15.8 mg/dL (7-18)
[2022-01-01 17:22] LABS: CREATININE 0.7 mg/dL (0.55-1.3)
[2022-01-01 17:24] LABS: BILIRUBIN,TOTAL 0.4 mg/dL (0.2-1); TOT PROT 6.4 g/dl (6.4-8.2)
[2022-01-01] MEDS: THIAMINE HCL 100 MG TABLET (FP) PO SCH (22:55)
[2022-01-01] MEDS: MELATONIN 5 MG TABLETS PO SCH (22:55)
[2022-01-02] MEDS: hydrOXYzine PAMOATE 25 MG CAPSULE (FP) PO SCH ×5 (07:25→22:19)
[2022-01-02] MEDS ORDERED: methaDONE HCL 10 MG TABLET (FOR DETOX USE ONLY) ONE (09:11)
[2022-01-02] MEDS: PRENATAL VITAMINS W/ FOLIC ACID TABLET (FP) PO SCH (10:35)
[2022-01-02] MEDS: amLODIPine BESYLATE 10 MG TABLET (FP) PO SCH (10:35)
[2022-01-02] MEDS: PANTOPRAZOLE 40 MG TABLET PO SCH (10:35)
[2022-01-02] MEDS: NICOTINE 14 MG/24 HOURS TOPICAL PATCH TD SCH (10:38)
[2022-01-02] MEDS: METHOCARBAMOL 500 MG TABLET PO PRN (17:31)
[2022-01-02] MEDS: THIAMINE HCL 100 MG TABLET (FP) PO SCH (22:19)
[2022-01-02] MEDS: MELATONIN 5 MG TABLETS PO SCH (22:19)
[2022-01-03] MEDS: hydrOXYzine PAMOATE 25 MG CAPSULE (FP) PO SCH ×5 (06:26→23:26)
[2022-01-03] MEDS ORDERED: methaDONE HCL 10 MG TABLET (FOR DETOX USE ONLY) PO ONE (10:00)
[2022-01-03] MEDS: PANTOPRAZOLE 40 MG TABLET PO SCH (10:34)
[2022-01-03] MEDS: amLODIPine BESYLATE 10 MG TABLET (FP) PO SCH (10:34)
[2022-01-03] MEDS: PRENATAL VITAMINS W/ FOLIC ACID TABLET (FP) PO SCH (10:35)
[2022-01-03] MEDS: NICOTINE 14 MG/24 HOURS TOPICAL PATCH TD SCH (10:35)
[2022-01-03 14:09] LABS: SARS-CoV-2 NAA Not Detected (Not Detected)
[2022-01-03] MEDS: traZODone HCL 100 MG TABLET (FP) PO SCH (23:26)
[2022-01-03] MEDS: MELATONIN 5 MG TABLETS PO SCH (23:26)
[2022-01-03] MEDS: THIAMINE HCL 100 MG TABLET (FP) PO SCH (23:27)
[2022-01-03] MEDS: OLANZapine 10 MG TABLET PO SCH (23:27)
[2022-01-04] MEDS: hydrOXYzine PAMOATE 25 MG CAPSULE (FP) PO SCH ×5 (06:23→23:00)
[2022-01-04] MEDS ORDERED: methaDONE HCL 10 MG TABLET (FOR DETOX USE ONLY) ONE (09:52)
[2022-01-04] MEDS: METHOCARBAMOL 500 MG TABLET PO PRN (10:18)
[2022-01-04] MEDS: amLODIPine BESYLATE 10 MG TABLET (FP) PO SCH (10:19)
[2022-01-04] MEDS: SERTRALINE HCL 50 MG TABLET (FP) PO SCH (10:19)
[2022-01-04] MEDS: NICOTINE 14 MG/24 HOURS TOPICAL PATCH TD SCH (10:19)
[2022-01-04] MEDS: PANTOPRAZOLE 40 MG TABLET PO SCH (10:19)
[2022-01-04] MEDS: PRENATAL VITAMINS W/ FOLIC ACID TABLET (FP) PO SCH (10:21)
[2022-01-04] MEDS ORDERED: COLLOIDAL OATMEAL 1 BAR EACH TP PRN (11:51)
[2022-01-04] MEDS: FERROUS SO4 325 MG TABLET (FP) PO SCH (15:03)
[2022-01-04] MEDS: traZODone HCL 100 MG TABLET (FP) PO SCH (23:00)
[2022-01-04] MEDS: THIAMINE HCL 100 MG TABLET (FP) PO SCH (23:00)
[2022-01-04] MEDS: OLANZapine 10 MG TABLET PO SCH (23:00)
[2022-01-04] MEDS: MELATONIN 5 MG TABLETS PO SCH (23:02)
[2022-01-05] MEDS: hydrOXYzine PAMOATE 25 MG CAPSULE (FP) PO SCH ×5 (07:17→22:47)
[2022-01-05] MEDS ORDERED: methaDONE HCL 10 MG TABLET (FOR DETOX USE ONLY) PO ONE (10:00)
[2022-01-05] MEDS: PANTOPRAZOLE 40 MG TABLET PO SCH (10:30)
[2022-01-05] MEDS: PRENATAL VITAMINS W/ FOLIC ACID TABLET (FP) PO SCH (10:30)
[2022-01-05] MEDS: SERTRALINE HCL 50 MG TABLET (FP) PO SCH (10:30)
[2022-01-05] MEDS: METHOCARBAMOL 500 MG TABLET PO PRN (10:30)
[2022-01-05] MEDS: FERROUS SO4 325 MG TABLET (FP) PO SCH (10:30)
[2022-01-05] MEDS: amLODIPine BESYLATE 10 MG TABLET (FP) PO SCH (10:30)
[2022-01-05] MEDS: NICOTINE 14 MG/24 HOURS TOPICAL PATCH TD SCH (10:31)
[2022-01-05] MEDS: MELATONIN 5 MG TABLETS PO SCH (22:47)
[2022-01-05] MEDS: THIAMINE HCL 100 MG TABLET (FP) PO SCH (22:47)
[2022-01-05] MEDS: OLANZapine 10 MG TABLET PO SCH (22:47)
[2022-01-05] MEDS: traZODone HCL 100 MG TABLET (FP) PO SCH (22:47)
[2022-01-06] MEDS: hydrOXYzine PAMOATE 25 MG CAPSULE (FP) PO SCH ×5 (08:07→22:30)
[2022-01-06] MEDS: PANTOPRAZOLE 40 MG TABLET PO SCH (10:12)
[2022-01-06] MEDS: PRENATAL VITAMINS W/ FOLIC ACID TABLET (FP) PO SCH (10:12)
[2022-01-06] MEDS: SERTRALINE HCL 50 MG TABLET (FP) PO SCH (10:12)
[2022-01-06] MEDS: amLODIPine BESYLATE 10 MG TABLET (FP) PO SCH (10:12)
[2022-01-06] MEDS: METHOCARBAMOL 500 MG TABLET PO PRN (10:12)
[2022-01-06] MEDS: FERROUS SO4 325 MG TABLET (FP) PO SCH (10:12)
[2022-01-06] MEDS: NICOTINE 14 MG/24 HOURS TOPICAL PATCH TD SCH (10:14)
[2022-01-06] MEDS: MULTIVITAMINS (DAILY MVI) TABLET (FP) PO SCH (15:41)
[2022-01-06] MEDS: traZODone HCL 100 MG TABLET (FP) PO SCH (22:30)
[2022-01-06] MEDS: THIAMINE HCL 100 MG TABLET (FP) PO SCH (22:30)
[2022-01-06] MEDS: OLANZapine 10 MG TABLET PO SCH (22:30)
[2022-01-06] MEDS: MELATONIN 5 MG TABLETS PO SCH (22:30)
[2022-01-07] MEDS: hydrOXYzine PAMOATE 25 MG CAPSULE (FP) PO SCH (06:09)
[2022-01-07] MEDS: NICOTINE 14 MG/24 HOURS TOPICAL PATCH TD SCH (10:26)
[2022-01-07] MEDS: amLODIPine BESYLATE 10 MG TABLET (FP) PO SCH (10:28)
[2022-01-07] MEDS: FERROUS SO4 325 MG TABLET (FP) PO SCH (10:28)
[2022-01-07] MEDS: SERTRALINE HCL 50 MG TABLET (FP) PO SCH (10:28)
[2022-01-07] MEDS: PANTOPRAZOLE 40 MG TABLET PO SCH (10:28)
[2022-01-07] MEDS: MULTIVITAMINS (DAILY MVI) TABLET (FP) PO SCH (10:29)
[2022-01-07 17:19] VITALS: BP 101/59; PULSE 88; TEMP 98.4
== END 2022-01-07 18:35 | disposition other institution (70) | DRG 770 ==
LOC: YASAS 23:49 → Y3N 01-01 10:48 → Y6N 01-01 11:37 → Y3W 01-03 20:07 → Y6N 01-03 20:09
PROVIDERS: ADMIT Allergy & Immunology; ATTEND Allergy & Immunology
PROC: HZ2ZZZZ Detoxification Services for Substance Abuse Treatment (ICD-10-PCS; principal; 2022-01-01)
DX: F11.23 Opioid dependence with withdrawal (principal); F14.20 Cocaine dependence, uncomplicated; F13.20 Sedative, hypnotic or anxiolytic dependence, uncomplicated; F12.20 Cannabis dependence, uncomplicated; F17.210 Nicotine dependence, cigarettes, uncomplicated; F25.1 Schizoaffective disorder, depressive type; F19.282 Other psychoactive substance dependence with psychoactive substance-induced sleep disorder; F31.9 Bipolar disorder, unspecified; F19.24 Other psychoactive substance dependence with psychoactive substance-induced mood disorder; D50.9 Iron deficiency anemia, unspecified; G62.9 Polyneuropathy, unspecified; E78.5 Hyperlipidemia, unspecified; I10 Essential (primary) hypertension; K21.9 Gastro-esophageal reflux disease without esophagitis; M17.12 Unilateral primary osteoarthritis, left knee; Z86.19 Personal history of other infectious and parasitic diseases; Z59.00 Homelessness unspecified; Z56.0 Unemployment, unspecified
CPT/HCPCS: 36415; 80053; 82607; 82746; 83540; 83550; 85027; 86780; 87040; C9803-CS; U0003; U0005

== ENCOUNTER 2022-01-07 17:43 | Inpatient (IN) | payer OTHER ==
[2022-01-07] MEDS ORDERED: IBUPROFEN 400 MG TABLET (FP) PO PRN (18:11)
[2022-01-07] MEDS ORDERED: MAG HYDROX/AL HYDROX/SIMETH 30 ML UNIT-DOSE CUP PO PRN (18:11)
[2022-01-07] MEDS ORDERED: guaiFENesin 200 MG/10 ML 10 ML UNIT-DOSE CUPS PO PRN (18:11)
[2022-01-07] MEDS ORDERED: MAGNESIUM CITRATE 300 ML BOTTLE PO PRN (18:11)
[2022-01-07] MEDS ORDERED: ACETAMINOPHEN 325 MG TABLET (FP) PO PRN (18:11)
[2022-01-07] MEDS ORDERED: P-EPHED 60MG/TRIPROLIDI 2.5MG TABLET PO PRN (18:11)
[2022-01-07] MEDS ORDERED: MAGNESIUM HYDROX 2400MG/30ML ORAL SUSPENSION 30 ML CUP PO PRN (18:11)
[2022-01-07] MEDS ORDERED: BENZOCAINE/MENTHOL (CHLORASEPTIC ) LOZENGE MM PRN (18:11)
[2022-01-07] MEDS ORDERED: LOPERAMIDE HCL 2 MG CAPSULE PO PRN (18:11)
[2022-01-07] MEDS ORDERED: NALOXONE (NARCAN) HCL 4 MG/0.1 ML SPRAY NS PRN (18:13)
[2022-01-07] MEDS: NICOTINE 7 MG/24 HOURS TOPICAL PATCH TD SCH (18:30)
[2022-01-07] MEDS: hydrOXYzine PAMOATE 25 MG CAPSULE (FP) PO SCH (21:19)
[2022-01-07] MEDS: MELATONIN 5 MG TABLETS PO SCH (21:19)
[2022-01-07] MEDS: OLANZapine 10 MG TABLET PO SCH (21:19)
[2022-01-07] MEDS: traZODone HCL 100 MG TABLET (FP) PO SCH (21:19)
[2022-01-07] MEDS: THIAMINE HCL 100 MG TABLET (FP) PO SCH (21:19)
[2022-01-08] MEDS: hydrOXYzine PAMOATE 25 MG CAPSULE (FP) PO SCH ×5 (07:04→21:05)
[2022-01-08] MEDS: NICOTINE 7 MG/24 HOURS TOPICAL PATCH TD SCH (10:27)
[2022-01-08] MEDS: amLODIPine BESYLATE 10 MG TABLET (FP) PO SCH (10:27)
[2022-01-08] MEDS: PRENATAL VITAMINS W/ FOLIC ACID TABLET (FP) PO SCH (10:28)
[2022-01-08] MEDS: BUPRENORPHINE/NALOXONE 4 MG/1 MG FILM PACKET SL SCH ×2 (10:28→21:06)
[2022-01-08] MEDS: PANTOPRAZOLE 40 MG TABLET PO SCH (10:28)
[2022-01-08] MEDS: SERTRALINE HCL 50 MG TABLET (FP) PO SCH (10:29)
[2022-01-08] MEDS: TOLNAFTATE 1% CREAM 15 GM TUBE TP SCH ×2 (11:00→21:06)
[2022-01-08] MEDS: FERROUS SO4 325 MG TABLET (FP) PO SCH ×2 (11:12→17:13)
[2022-01-08] MEDS: COLLOIDAL OATMEAL 1 BAR EACH TP PRN (11:13)
[2022-01-08] MEDS: NICOTINE 10 MG CARTRIDGE (INHALER) IH PRN (15:42)
[2022-01-08] MEDS: traZODone HCL 100 MG TABLET (FP) PO SCH (21:05)
[2022-01-08] MEDS: OLANZapine 10 MG TABLET PO SCH (21:05)
[2022-01-08] MEDS: THIAMINE HCL 100 MG TABLET (FP) PO SCH (21:05)
[2022-01-08] MEDS: MELATONIN 5 MG TABLETS PO SCH (21:05)
[2022-01-09] MEDS: hydrOXYzine PAMOATE 25 MG CAPSULE (FP) PO SCH ×5 (07:15→21:05)
[2022-01-09] MEDS: FERROUS SO4 325 MG TABLET (FP) PO SCH ×3 (07:18→17:04)
[2022-01-09] MEDS: amLODIPine BESYLATE 10 MG TABLET (FP) PO SCH (10:13)
[2022-01-09] MEDS: SERTRALINE HCL 50 MG TABLET (FP) PO SCH (10:13)
[2022-01-09] MEDS: PANTOPRAZOLE 40 MG TABLET PO SCH (10:15)
[2022-01-09] MEDS: NICOTINE 7 MG/24 HOURS TOPICAL PATCH TD SCH (10:15)
[2022-01-09] MEDS: BUPRENORPHINE/NALOXONE 4 MG/1 MG FILM PACKET SL SCH ×3 (10:15→21:05)
[2022-01-09] MEDS: PRENATAL VITAMINS W/ FOLIC ACID TABLET (FP) PO SCH (10:15)
[2022-01-09] MEDS: TOLNAFTATE 1% CREAM 15 GM TUBE TP SCH ×2 (10:15→21:05)
[2022-01-09] MEDS: NICOTINE 10 MG CARTRIDGE (INHALER) IH PRN (13:24)
[2022-01-09] MEDS: traZODone HCL 100 MG TABLET (FP) PO SCH (21:04)
[2022-01-09] MEDS: THIAMINE HCL 100 MG TABLET (FP) PO SCH (21:05)
[2022-01-09] MEDS: OLANZapine 10 MG TABLET PO SCH (21:05)
[2022-01-09] MEDS: MELATONIN 5 MG TABLETS PO SCH (21:05)
[2022-01-10] MEDS: hydrOXYzine PAMOATE 25 MG CAPSULE (FP) PO SCH ×5 (06:39→21:02)
[2022-01-10] MEDS: BUPRENORPHINE/NALOXONE 4 MG/1 MG FILM PACKET SL SCH ×3 (06:40→21:02)
[2022-01-10] MEDS: FERROUS SO4 325 MG TABLET (FP) PO SCH ×3 (07:10→17:00)
[2022-01-10] MEDS: amLODIPine BESYLATE 10 MG TABLET (FP) PO SCH (10:24)
[2022-01-10] MEDS: TOLNAFTATE 1% CREAM 15 GM TUBE TP SCH ×2 (10:24→21:03)
[2022-01-10] MEDS: PRENATAL VITAMINS W/ FOLIC ACID TABLET (FP) PO SCH (10:24)
[2022-01-10] MEDS: SERTRALINE HCL 50 MG TABLET (FP) PO SCH (10:24)
[2022-01-10] MEDS: PANTOPRAZOLE 40 MG TABLET PO SCH (10:24)
[2022-01-10] MEDS: NICOTINE 7 MG/24 HOURS TOPICAL PATCH TD SCH (10:25)
[2022-01-10] MEDS: traZODone HCL 100 MG TABLET (FP) PO SCH (21:02)
[2022-01-10] MEDS: MELATONIN 5 MG TABLETS PO SCH (21:02)
[2022-01-10] MEDS: OLANZapine 10 MG TABLET PO SCH (21:03)
[2022-01-10] MEDS: THIAMINE HCL 100 MG TABLET (FP) PO SCH (21:03)
[2022-01-10] MEDS: NICOTINE 10 MG CARTRIDGE (INHALER) IH PRN (22:23)
[2022-01-11] MEDS: hydrOXYzine PAMOATE 25 MG CAPSULE (FP) PO SCH ×5 (06:36→21:00)
[2022-01-11] MEDS: BUPRENORPHINE/NALOXONE 4 MG/1 MG FILM PACKET SL SCH ×3 (06:37→21:00)
[2022-01-11] MEDS: FERROUS SO4 325 MG TABLET (FP) PO SCH ×3 (07:02→16:54)
[2022-01-11] MEDS: PRENATAL VITAMINS W/ FOLIC ACID TABLET (FP) PO SCH (10:22)
[2022-01-11] MEDS: PANTOPRAZOLE 40 MG TABLET PO SCH (10:22)
[2022-01-11] MEDS: amLODIPine BESYLATE 10 MG TABLET (FP) PO SCH (10:22)
[2022-01-11] MEDS: SERTRALINE HCL 50 MG TABLET (FP) PO SCH (10:23)
[2022-01-11] MEDS: NICOTINE 7 MG/24 HOURS TOPICAL PATCH TD SCH (10:23)
[2022-01-11] MEDS: TOLNAFTATE 1% CREAM 15 GM TUBE TP SCH ×2 (10:24→21:01)
[2022-01-11 14:09] LABS: SARS-CoV-2 NAA Not Detected (Not Detected)
[2022-01-11] MEDS: traZODone HCL 100 MG TABLET (FP) PO SCH (21:00)
[2022-01-11] MEDS: OLANZapine 10 MG TABLET PO SCH (21:00)
[2022-01-11] MEDS: MELATONIN 5 MG TABLETS PO SCH (21:01)
[2022-01-11] MEDS: THIAMINE HCL 100 MG TABLET (FP) PO SCH (21:01)
[2022-01-12] MEDS: hydrOXYzine PAMOATE 25 MG CAPSULE (FP) PO SCH ×5 (07:00→21:44)
[2022-01-12] MEDS: BUPRENORPHINE/NALOXONE 4 MG/1 MG FILM PACKET SL SCH ×3 (07:02→21:43)
[2022-01-12] MEDS: FERROUS SO4 325 MG TABLET (FP) PO SCH ×3 (07:03→17:30)
[2022-01-12] MEDS: amLODIPine BESYLATE 10 MG TABLET (FP) PO SCH (10:20)
[2022-01-12] MEDS: PANTOPRAZOLE 40 MG TABLET PO SCH (10:20)
[2022-01-12] MEDS: SERTRALINE HCL 50 MG TABLET (FP) PO SCH (10:20)
[2022-01-12] MEDS: PRENATAL VITAMINS W/ FOLIC ACID TABLET (FP) PO SCH (10:20)
[2022-01-12] MEDS: TOLNAFTATE 1% CREAM 15 GM TUBE TP SCH ×2 (10:21→21:44)
[2022-01-12] MEDS: NICOTINE 7 MG/24 HOURS TOPICAL PATCH TD SCH (10:21)
[2022-01-12] MEDS: NICOTINE 10 MG CARTRIDGE (INHALER) IH PRN (17:30)
[2022-01-12] MEDS: traZODone HCL 100 MG TABLET (FP) PO SCH (21:43)
[2022-01-12] MEDS: MELATONIN 5 MG TABLETS PO SCH (21:43)
[2022-01-12] MEDS: THIAMINE HCL 100 MG TABLET (FP) PO SCH (21:44)
[2022-01-12] MEDS: OLANZapine 10 MG TABLET PO SCH (21:44)
[2022-01-13] MEDS: hydrOXYzine PAMOATE 25 MG CAPSULE (FP) PO SCH ×5 (06:18→21:10)
[2022-01-13] MEDS: BUPRENORPHINE/NALOXONE 4 MG/1 MG FILM PACKET SL SCH ×3 (06:18→21:11)
[2022-01-13] MEDS: FERROUS SO4 325 MG TABLET (FP) PO SCH ×3 (07:03→17:26)
[2022-01-13] MEDS: PRENATAL VITAMINS W/ FOLIC ACID TABLET (FP) PO SCH (09:48)
[2022-01-13] MEDS: TOLNAFTATE 1% CREAM 15 GM TUBE TP SCH ×2 (09:49→21:10)
[2022-01-13] MEDS: PANTOPRAZOLE 40 MG TABLET PO SCH (09:49)
[2022-01-13] MEDS: SERTRALINE HCL 50 MG TABLET (FP) PO SCH (09:49)
[2022-01-13] MEDS: amLODIPine BESYLATE 10 MG TABLET (FP) PO SCH (09:49)
[2022-01-13] MEDS: NICOTINE 7 MG/24 HOURS TOPICAL PATCH TD SCH (09:49)
[2022-01-13] MEDS: traZODone HCL 100 MG TABLET (FP) PO SCH (21:10)
[2022-01-13] MEDS: OLANZapine 10 MG TABLET PO SCH (21:10)
[2022-01-13] MEDS: THIAMINE HCL 100 MG TABLET (FP) PO SCH (21:10)
[2022-01-13] MEDS: MELATONIN 5 MG TABLETS PO SCH (21:10)
[2022-01-14] MEDS: hydrOXYzine PAMOATE 25 MG CAPSULE (FP) PO SCH ×2 (06:23→10:39)
[2022-01-14] MEDS: BUPRENORPHINE/NALOXONE 4 MG/1 MG FILM PACKET SL SCH (06:24)
[2022-01-14] MEDS: FERROUS SO4 325 MG TABLET (FP) PO SCH ×3 (07:58→17:21)
[2022-01-14] MEDS: NICOTINE 7 MG/24 HOURS TOPICAL PATCH TD SCH (10:39)
[2022-01-14] MEDS: amLODIPine BESYLATE 10 MG TABLET (FP) PO SCH (10:39)
[2022-01-14] MEDS: PANTOPRAZOLE 40 MG TABLET PO SCH (10:39)
[2022-01-14] MEDS: SERTRALINE HCL 50 MG TABLET (FP) PO SCH (10:39)
[2022-01-14] MEDS: TOLNAFTATE 1% CREAM 15 GM TUBE TP SCH ×2 (10:40→21:28)
[2022-01-14] MEDS: PRENATAL VITAMINS W/ FOLIC ACID TABLET (FP) PO SCH (10:40)
[2022-01-14] MEDS ORDERED: hydrOXYzine PAMOATE 25 MG CAPSULE (FP) PO PRN (11:55)
[2022-01-14] MEDS: BUPRENORPHINE/NALOXONE 8 MG/2 MG FILM PACKET SL SCH (21:28)
[2022-01-14] MEDS: OLANZapine 10 MG TABLET PO SCH (21:28)
[2022-01-14] MEDS: MELATONIN 5 MG TABLETS PO SCH (21:28)
[2022-01-14] MEDS: THIAMINE HCL 100 MG TABLET (FP) PO SCH (21:28)
[2022-01-14] MEDS: traZODone HCL 100 MG TABLET (FP) PO SCH (21:28)
[2022-01-15] MEDS: FERROUS SO4 325 MG TABLET (FP) PO SCH ×3 (07:17→17:50)
[2022-01-15] MEDS: NICOTINE 7 MG/24 HOURS TOPICAL PATCH TD SCH (09:54)
[2022-01-15] MEDS: BUPRENORPHINE/NALOXONE 8 MG/2 MG FILM PACKET SL SCH ×2 (09:54→21:08)
[2022-01-15] MEDS: TOLNAFTATE 1% CREAM 15 GM TUBE TP SCH ×2 (09:54→23:21)
[2022-01-15] MEDS: PANTOPRAZOLE 40 MG TABLET PO SCH (09:54)
[2022-01-15] MEDS: PRENATAL VITAMINS W/ FOLIC ACID TABLET (FP) PO SCH (09:54)
[2022-01-15] MEDS: amLODIPine BESYLATE 10 MG TABLET (FP) PO SCH (09:54)
[2022-01-15] MEDS: SERTRALINE HCL 50 MG TABLET (FP) PO SCH (09:54)
[2022-01-15] MEDS: traZODone HCL 100 MG TABLET (FP) PO SCH (21:07)
[2022-01-15] MEDS: OLANZapine 10 MG TABLET PO SCH (21:07)
[2022-01-15] MEDS: MELATONIN 5 MG TABLETS PO SCH (21:07)
[2022-01-15] MEDS: THIAMINE HCL 100 MG TABLET (FP) PO SCH (21:07)
[2022-01-16] MEDS: NICOTINE 10 MG CARTRIDGE (INHALER) IH PRN (06:41)
[2022-01-16] MEDS: FERROUS SO4 325 MG TABLET (FP) PO SCH ×3 (07:33→18:35)
[2022-01-16] MEDS: PANTOPRAZOLE 40 MG TABLET PO SCH (10:05)
[2022-01-16] MEDS: PRENATAL VITAMINS W/ FOLIC ACID TABLET (FP) PO SCH (10:05)
[2022-01-16] MEDS: amLODIPine BESYLATE 10 MG TABLET (FP) PO SCH (10:05)
[2022-01-16] MEDS: SERTRALINE HCL 50 MG TABLET (FP) PO SCH (10:05)
[2022-01-16] MEDS: NICOTINE 7 MG/24 HOURS TOPICAL PATCH TD SCH (10:06)
[2022-01-16] MEDS: BUPRENORPHINE/NALOXONE 8 MG/2 MG FILM PACKET SL SCH ×2 (10:06→21:01)
[2022-01-16] MEDS: TOLNAFTATE 1% CREAM 15 GM TUBE TP SCH ×2 (10:06→21:02)
[2022-01-16] MEDS: THIAMINE HCL 100 MG TABLET (FP) PO SCH (21:00)
[2022-01-16] MEDS: traZODone HCL 100 MG TABLET (FP) PO SCH (21:00)
[2022-01-16] MEDS: MELATONIN 5 MG TABLETS PO SCH (21:00)
[2022-01-16] MEDS: OLANZapine 10 MG TABLET PO SCH (21:00)
[2022-01-17] MEDS: FERROUS SO4 325 MG TABLET (FP) PO SCH ×3 (07:40→17:58)
[2022-01-17] MEDS: NICOTINE 7 MG/24 HOURS TOPICAL PATCH TD SCH (09:50)
[2022-01-17] MEDS: PANTOPRAZOLE 40 MG TABLET PO SCH (09:50)
[2022-01-17] MEDS: amLODIPine BESYLATE 10 MG TABLET (FP) PO SCH (09:50)
[2022-01-17] MEDS: SERTRALINE HCL 50 MG TABLET (FP) PO SCH (09:50)
[2022-01-17] MEDS: BUPRENORPHINE/NALOXONE 8 MG/2 MG FILM PACKET SL SCH ×3 (09:50→21:01)
[2022-01-17] MEDS: PRENATAL VITAMINS W/ FOLIC ACID TABLET (FP) PO SCH (09:50)
[2022-01-17] MEDS: TOLNAFTATE 1% CREAM 15 GM TUBE TP SCH ×2 (09:53→21:01)
[2022-01-17] MEDS: COLLOIDAL OATMEAL 1 BAR EACH TP PRN (15:45)
[2022-01-17] MEDS: OLANZapine 10 MG TABLET PO SCH (21:01)
[2022-01-17] MEDS: traZODone HCL 100 MG TABLET (FP) PO SCH (21:01)
[2022-01-17] MEDS: MELATONIN 5 MG TABLETS PO SCH (21:01)
[2022-01-17] MEDS: THIAMINE HCL 100 MG TABLET (FP) PO SCH (21:01)
[2022-01-17] MEDS ORDERED: BUPRENORPHINE/NALOXONE 8 MG/2 MG FILM PACKET SL SCH (22:00)
[2022-01-18] MEDS: BUPRENORPHINE/NALOXONE 8 MG/2 MG FILM PACKET SL SCH ×3 (07:10→21:21)
[2022-01-18] MEDS: FERROUS SO4 325 MG TABLET (FP) PO SCH ×3 (07:11→18:40)
[2022-01-18] MEDS: PRENATAL VITAMINS W/ FOLIC ACID TABLET (FP) PO SCH (10:27)
[2022-01-18] MEDS: PANTOPRAZOLE 40 MG TABLET PO SCH (10:27)
[2022-01-18] MEDS: amLODIPine BESYLATE 10 MG TABLET (FP) PO SCH (10:27)
[2022-01-18] MEDS: NICOTINE 7 MG/24 HOURS TOPICAL PATCH TD SCH (10:27)
[2022-01-18] MEDS: SERTRALINE HCL 50 MG TABLET (FP) PO SCH (10:27)
[2022-01-18] MEDS: TOLNAFTATE 1% CREAM 15 GM TUBE TP SCH ×2 (10:50→21:22)
[2022-01-18] MEDS: MELATONIN 5 MG TABLETS PO SCH (21:20)
[2022-01-18] MEDS: traZODone HCL 100 MG TABLET (FP) PO SCH (21:20)
[2022-01-18] MEDS: THIAMINE HCL 100 MG TABLET (FP) PO SCH (21:20)
[2022-01-18] MEDS: OLANZapine 10 MG TABLET PO SCH (21:20)
[2022-01-19] MEDS: BUPRENORPHINE/NALOXONE 8 MG/2 MG FILM PACKET SL SCH ×3 (06:47→21:06)
[2022-01-19] MEDS: FERROUS SO4 325 MG TABLET (FP) PO SCH ×3 (07:23→18:15)
[2022-01-19] MEDS: SERTRALINE HCL 50 MG TABLET (FP) PO SCH (10:13)
[2022-01-19] MEDS: NICOTINE 7 MG/24 HOURS TOPICAL PATCH TD SCH (10:13)
[2022-01-19] MEDS: TOLNAFTATE 1% CREAM 15 GM TUBE TP SCH ×2 (10:13→21:07)
[2022-01-19] MEDS: PANTOPRAZOLE 40 MG TABLET PO SCH (10:13)
[2022-01-19] MEDS: amLODIPine BESYLATE 10 MG TABLET (FP) PO SCH (10:13)
[2022-01-19] MEDS: PRENATAL VITAMINS W/ FOLIC ACID TABLET (FP) PO SCH (10:13)
[2022-01-19] MEDS: traZODone HCL 100 MG TABLET (FP) PO SCH (21:07)
[2022-01-19] MEDS: OLANZapine 10 MG TABLET PO SCH (21:07)
[2022-01-19] MEDS: MELATONIN 5 MG TABLETS PO SCH (21:07)
[2022-01-19] MEDS: THIAMINE HCL 100 MG TABLET (FP) PO SCH (21:07)
[2022-01-20] MEDS: BUPRENORPHINE/NALOXONE 8 MG/2 MG FILM PACKET SL SCH ×3 (06:05→21:11)
[2022-01-20] MEDS: FERROUS SO4 325 MG TABLET (FP) PO SCH ×3 (07:10→17:35)
[2022-01-20] MEDS: SERTRALINE HCL 50 MG TABLET (FP) PO SCH (10:37)
[2022-01-20] MEDS: PRENATAL VITAMINS W/ FOLIC ACID TABLET (FP) PO SCH (10:37)
[2022-01-20] MEDS: amLODIPine BESYLATE 10 MG TABLET (FP) PO SCH (10:37)
[2022-01-20] MEDS: TOLNAFTATE 1% CREAM 15 GM TUBE TP SCH ×2 (10:38→21:12)
[2022-01-20] MEDS: NICOTINE 7 MG/24 HOURS TOPICAL PATCH TD SCH (10:38)
[2022-01-20] MEDS: PANTOPRAZOLE 40 MG TABLET PO SCH (10:38)
[2022-01-20] MEDS: traZODone HCL 100 MG TABLET (FP) PO SCH (21:11)
[2022-01-20] MEDS: MELATONIN 5 MG TABLETS PO SCH (21:11)
[2022-01-20] MEDS: OLANZapine 10 MG TABLET PO SCH (21:11)
[2022-01-20] MEDS: THIAMINE HCL 100 MG TABLET (FP) PO SCH (21:12)
[2022-01-21] MEDS: BUPRENORPHINE/NALOXONE 8 MG/2 MG FILM PACKET SL SCH ×3 (06:34→21:08)
[2022-01-21] MEDS: FERROUS SO4 325 MG TABLET (FP) PO SCH ×3 (07:11→16:34)
[2022-01-21] MEDS: SERTRALINE HCL 50 MG TABLET (FP) PO SCH (11:59)
[2022-01-21] MEDS: PANTOPRAZOLE 40 MG TABLET PO SCH (12:00)
[2022-01-21] MEDS: amLODIPine BESYLATE 10 MG TABLET (FP) PO SCH (12:00)
[2022-01-21] MEDS: PRENATAL VITAMINS W/ FOLIC ACID TABLET (FP) PO SCH (12:01)
[2022-01-21] MEDS: NICOTINE 7 MG/24 HOURS TOPICAL PATCH TD SCH (12:01)
[2022-01-21] MEDS: TOLNAFTATE 1% CREAM 15 GM TUBE TP SCH ×2 (12:01→21:08)
[2022-01-21] MEDS: NICOTINE 10 MG CARTRIDGE (INHALER) IH PRN (16:33)
[2022-01-21] MEDS: COLLOIDAL OATMEAL 1 BAR EACH TP PRN (16:34)
[2022-01-21] MEDS: THIAMINE HCL 100 MG TABLET (FP) PO SCH (21:08)
[2022-01-21] MEDS: traZODone HCL 100 MG TABLET (FP) PO SCH (21:08)
[2022-01-21] MEDS: MELATONIN 5 MG TABLETS PO SCH (21:08)
[2022-01-21] MEDS: OLANZapine 10 MG TABLET PO SCH (21:08)
[2022-01-22] MEDS: BUPRENORPHINE/NALOXONE 8 MG/2 MG FILM PACKET SL SCH ×3 (06:21→21:10)
[2022-01-22] MEDS: FERROUS SO4 325 MG TABLET (FP) PO SCH ×3 (07:09→17:40)
[2022-01-22] MEDS: PANTOPRAZOLE 40 MG TABLET PO SCH (10:08)
[2022-01-22] MEDS: NICOTINE 7 MG/24 HOURS TOPICAL PATCH TD SCH (10:08)
[2022-01-22] MEDS: SERTRALINE HCL 50 MG TABLET (FP) PO SCH (10:08)
[2022-01-22] MEDS: PRENATAL VITAMINS W/ FOLIC ACID TABLET (FP) PO SCH (10:08)
[2022-01-22] MEDS: amLODIPine BESYLATE 10 MG TABLET (FP) PO SCH (10:08)
[2022-01-22] MEDS: TOLNAFTATE 1% CREAM 15 GM TUBE TP SCH ×2 (10:09→21:11)
[2022-01-22] MEDS: THIAMINE HCL 100 MG TABLET (FP) PO SCH (21:10)
[2022-01-22] MEDS: MELATONIN 5 MG TABLETS PO SCH (21:10)
[2022-01-22] MEDS: traZODone HCL 100 MG TABLET (FP) PO SCH (21:10)
[2022-01-22] MEDS: OLANZapine 10 MG TABLET PO SCH (21:10)
[2022-01-23] MEDS: BUPRENORPHINE/NALOXONE 8 MG/2 MG FILM PACKET SL SCH ×3 (06:37→21:01)
[2022-01-23] MEDS: FERROUS SO4 325 MG TABLET (FP) PO SCH ×3 (07:04→20:58)
[2022-01-23] MEDS: NICOTINE 10 MG CARTRIDGE (INHALER) IH PRN (08:51)
[2022-01-23] MEDS: PRENATAL VITAMINS W/ FOLIC ACID TABLET (FP) PO SCH (09:52)
[2022-01-23] MEDS: PANTOPRAZOLE 40 MG TABLET PO SCH (09:52)
[2022-01-23] MEDS: SERTRALINE HCL 50 MG TABLET (FP) PO SCH (09:52)
[2022-01-23] MEDS: amLODIPine BESYLATE 10 MG TABLET (FP) PO SCH (09:52)
[2022-01-23] MEDS: TOLNAFTATE 1% CREAM 15 GM TUBE TP SCH ×2 (09:53→21:01)
[2022-01-23] MEDS: NICOTINE 7 MG/24 HOURS TOPICAL PATCH TD SCH (09:53)
[2022-01-23] MEDS: traZODone HCL 100 MG TABLET (FP) PO SCH (21:00)
[2022-01-23] MEDS: MELATONIN 5 MG TABLETS PO SCH (21:01)
[2022-01-23] MEDS: OLANZapine 10 MG TABLET PO SCH (21:01)
[2022-01-23] MEDS: THIAMINE HCL 100 MG TABLET (FP) PO SCH (21:01)
[2022-01-24] MEDS ORDERED: BUPRENORPHINE/NALOXONE 8 MG/2 MG FILM PACKET SL SCH (06:00)
[2022-01-24] MEDS: BUPRENORPHINE/NALOXONE 8 MG/2 MG FILM PACKET SL SCH ×3 (06:38→21:13)
[2022-01-24] MEDS: FERROUS SO4 325 MG TABLET (FP) PO SCH ×3 (07:04→18:30)
[2022-01-24] MEDS: PRENATAL VITAMINS W/ FOLIC ACID TABLET (FP) PO SCH (10:14)
[2022-01-24] MEDS: amLODIPine BESYLATE 10 MG TABLET (FP) PO SCH (10:15)
[2022-01-24] MEDS: TOLNAFTATE 1% CREAM 15 GM TUBE TP SCH ×2 (10:15→21:15)
[2022-01-24] MEDS: NICOTINE 7 MG/24 HOURS TOPICAL PATCH TD SCH (10:15)
[2022-01-24] MEDS: PANTOPRAZOLE 40 MG TABLET PO SCH (10:15)
[2022-01-24] MEDS: SERTRALINE HCL 50 MG TABLET (FP) PO SCH (10:15)
[2022-01-24] MEDS: OLANZapine 10 MG TABLET PO SCH (21:13)
[2022-01-24] MEDS: traZODone HCL 100 MG TABLET (FP) PO SCH (21:13)
[2022-01-24] MEDS: THIAMINE HCL 100 MG TABLET (FP) PO SCH (21:13)
[2022-01-24] MEDS: MELATONIN 5 MG TABLETS PO SCH (21:13)
[2022-01-25] MEDS: BUPRENORPHINE/NALOXONE 8 MG/2 MG FILM PACKET SL SCH ×3 (06:44→21:35)
[2022-01-25] MEDS: FERROUS SO4 325 MG TABLET (FP) PO SCH ×3 (07:10→18:35)
[2022-01-25] MEDS: amLODIPine BESYLATE 10 MG TABLET (FP) PO SCH (10:20)
[2022-01-25] MEDS: TOLNAFTATE 1% CREAM 15 GM TUBE TP SCH ×2 (10:20→21:36)
[2022-01-25] MEDS: PANTOPRAZOLE 40 MG TABLET PO SCH (10:20)
[2022-01-25] MEDS: NICOTINE 7 MG/24 HOURS TOPICAL PATCH TD SCH (10:20)
[2022-01-25] MEDS: PRENATAL VITAMINS W/ FOLIC ACID TABLET (FP) PO SCH (10:20)
[2022-01-25] MEDS: SERTRALINE HCL 50 MG TABLET (FP) PO SCH (10:20)
[2022-01-25] MEDS: traZODone HCL 100 MG TABLET (FP) PO SCH (21:33)
[2022-01-25] MEDS: MELATONIN 5 MG TABLETS PO SCH (21:34)
[2022-01-25] MEDS: THIAMINE HCL 100 MG TABLET (FP) PO SCH (21:36)
[2022-01-25] MEDS: COLLOIDAL OATMEAL 1 BAR EACH TP PRN (21:38)
[2022-01-25] MEDS: OLANZapine 10 MG TABLET PO SCH (22:00)
[2022-01-26] MEDS: BUPRENORPHINE/NALOXONE 8 MG/2 MG FILM PACKET SL SCH ×3 (06:31→21:21)
[2022-01-26] MEDS: FERROUS SO4 325 MG TABLET (FP) PO SCH ×3 (08:28→18:15)
[2022-01-26] MEDS: PRENATAL VITAMINS W/ FOLIC ACID TABLET (FP) PO SCH (10:03)
[2022-01-26] MEDS: SERTRALINE HCL 50 MG TABLET (FP) PO SCH (10:03)
[2022-01-26] MEDS: TOLNAFTATE 1% CREAM 15 GM TUBE TP SCH (10:04)
[2022-01-26] MEDS: PANTOPRAZOLE 40 MG TABLET PO SCH (10:04)
[2022-01-26] MEDS: amLODIPine BESYLATE 10 MG TABLET (FP) PO SCH (10:04)
[2022-01-26] MEDS: NICOTINE 7 MG/24 HOURS TOPICAL PATCH TD SCH (10:04)
[2022-01-26] MEDS: NICOTINE 10 MG CARTRIDGE (INHALER) IH PRN (10:05)
[2022-01-26] MEDS: traZODone HCL 100 MG TABLET (FP) PO SCH (21:21)
[2022-01-26] MEDS: THIAMINE HCL 100 MG TABLET (FP) PO SCH (21:21)
[2022-01-26] MEDS: MELATONIN 5 MG TABLETS PO SCH (21:21)
[2022-01-26] MEDS: OLANZapine 10 MG TABLET PO SCH (21:21)
[2022-01-27] MEDS: TOLNAFTATE 1% CREAM 15 GM TUBE TP SCH ×3 (00:01→21:19)
[2022-01-27] MEDS: BUPRENORPHINE/NALOXONE 8 MG/2 MG FILM PACKET SL SCH ×3 (06:11→21:19)
[2022-01-27] MEDS: FERROUS SO4 325 MG TABLET (FP) PO SCH ×3 (07:31→18:03)
[2022-01-27] MEDS: SERTRALINE HCL 50 MG TABLET (FP) PO SCH (10:04)
[2022-01-27] MEDS: PRENATAL VITAMINS W/ FOLIC ACID TABLET (FP) PO SCH (10:04)
[2022-01-27] MEDS: NICOTINE 7 MG/24 HOURS TOPICAL PATCH TD SCH (10:04)
[2022-01-27] MEDS: amLODIPine BESYLATE 10 MG TABLET (FP) PO SCH (10:04)
[2022-01-27] MEDS: PANTOPRAZOLE 40 MG TABLET PO SCH (10:04)
[2022-01-27] MEDS: NICOTINE 10 MG CARTRIDGE (INHALER) IH PRN (18:03)
[2022-01-27] MEDS: OLANZapine 10 MG TABLET PO SCH (21:18)
[2022-01-27] MEDS: THIAMINE HCL 100 MG TABLET (FP) PO SCH (21:18)
[2022-01-27] MEDS: traZODone HCL 100 MG TABLET (FP) PO SCH (21:18)
[2022-01-27] MEDS: MELATONIN 5 MG TABLETS PO SCH (21:19)
[2022-01-28] MEDS: BUPRENORPHINE/NALOXONE 8 MG/2 MG FILM PACKET SL SCH ×3 (06:38→21:21)
[2022-01-28] MEDS: FERROUS SO4 325 MG TABLET (FP) PO SCH ×3 (07:30→18:15)
[2022-01-28] MEDS: PANTOPRAZOLE 40 MG TABLET PO SCH (10:05)
[2022-01-28] MEDS: NICOTINE 7 MG/24 HOURS TOPICAL PATCH TD SCH (10:05)
[2022-01-28] MEDS: PRENATAL VITAMINS W/ FOLIC ACID TABLET (FP) PO SCH (10:05)
[2022-01-28] MEDS: amLODIPine BESYLATE 10 MG TABLET (FP) PO SCH (10:06)
[2022-01-28] MEDS: SERTRALINE HCL 50 MG TABLET (FP) PO SCH (10:06)
[2022-01-28] MEDS: TOLNAFTATE 1% CREAM 15 GM TUBE TP SCH ×2 (10:07→21:20)
[2022-01-28] MEDS: NICOTINE 10 MG CARTRIDGE (INHALER) IH PRN (10:08)
[2022-01-28] MEDS: traZODone HCL 100 MG TABLET (FP) PO SCH (21:19)
[2022-01-28] MEDS: MELATONIN 5 MG TABLETS PO SCH (21:19)
[2022-01-28] MEDS: OLANZapine 10 MG TABLET PO SCH (21:19)
[2022-01-28] MEDS: THIAMINE HCL 100 MG TABLET (FP) PO SCH (21:19)
[2022-01-29] MEDS: BUPRENORPHINE/NALOXONE 8 MG/2 MG FILM PACKET SL SCH ×3 (06:59→21:20)
[2022-01-29] MEDS: FERROUS SO4 325 MG TABLET (FP) PO SCH ×3 (07:00→16:45)
[2022-01-29] MEDS: NICOTINE 7 MG/24 HOURS TOPICAL PATCH TD SCH (09:55)
[2022-01-29] MEDS: PRENATAL VITAMINS W/ FOLIC ACID TABLET (FP) PO SCH (09:55)
[2022-01-29] MEDS: TOLNAFTATE 1% CREAM 15 GM TUBE TP SCH ×2 (09:56→21:22)
[2022-01-29] MEDS: SERTRALINE HCL 50 MG TABLET (FP) PO SCH (09:56)
[2022-01-29] MEDS: PANTOPRAZOLE 40 MG TABLET PO SCH (09:56)
[2022-01-29] MEDS: amLODIPine BESYLATE 10 MG TABLET (FP) PO SCH (11:14)
[2022-01-29] MEDS: MELATONIN 5 MG TABLETS PO SCH (21:17)
[2022-01-29] MEDS: THIAMINE HCL 100 MG TABLET (FP) PO SCH (21:18)
[2022-01-29] MEDS: OLANZapine 10 MG TABLET PO SCH (21:18)
[2022-01-29] MEDS: traZODone HCL 100 MG TABLET (FP) PO SCH (21:18)
[2022-01-29] MEDS: GABAPENTIN 300 MG CAPSULE PO SCH (21:20)
[2022-01-30] MEDS: BUPRENORPHINE/NALOXONE 8 MG/2 MG FILM PACKET SL SCH ×3 (06:40→21:20)
[2022-01-30] MEDS: FERROUS SO4 325 MG TABLET (FP) PO SCH ×3 (07:04→18:02)
[2022-01-30] MEDS: NICOTINE 7 MG/24 HOURS TOPICAL PATCH TD SCH (09:55)
[2022-01-30] MEDS: PRENATAL VITAMINS W/ FOLIC ACID TABLET (FP) PO SCH (09:55)
[2022-01-30] MEDS: SERTRALINE HCL 50 MG TABLET (FP) PO SCH (09:56)
[2022-01-30] MEDS: PANTOPRAZOLE 40 MG TABLET PO SCH (09:56)
[2022-01-30] MEDS: GABAPENTIN 300 MG CAPSULE PO SCH ×2 (09:56→21:18)
[2022-01-30] MEDS: TOLNAFTATE 1% CREAM 15 GM TUBE TP SCH ×2 (09:57→21:18)
[2022-01-30] MEDS: amLODIPine BESYLATE 10 MG TABLET (FP) PO SCH (10:53)
[2022-01-30] MEDS: MELATONIN 5 MG TABLETS PO SCH (21:17)
[2022-01-30] MEDS: traZODone HCL 100 MG TABLET (FP) PO SCH (21:17)
[2022-01-30] MEDS: OLANZapine 10 MG TABLET PO SCH (21:18)
[2022-01-30] MEDS: THIAMINE HCL 100 MG TABLET (FP) PO SCH (21:18)
[2022-01-31] MEDS: FERROUS SO4 325 MG TABLET (FP) PO SCH ×3 (07:23→18:08)
[2022-01-31] MEDS: BUPRENORPHINE/NALOXONE 8 MG/2 MG FILM PACKET SL SCH ×3 (07:24→21:33)
[2022-01-31] MEDS: PANTOPRAZOLE 40 MG TABLET PO SCH (10:16)
[2022-01-31] MEDS: SERTRALINE HCL 50 MG TABLET (FP) PO SCH (10:16)
[2022-01-31] MEDS: GABAPENTIN 300 MG CAPSULE PO SCH ×2 (10:17→21:33)
[2022-01-31] MEDS: amLODIPine BESYLATE 10 MG TABLET (FP) PO SCH (10:17)
[2022-01-31] MEDS: PRENATAL VITAMINS W/ FOLIC ACID TABLET (FP) PO SCH (10:18)
[2022-01-31] MEDS: NICOTINE 7 MG/24 HOURS TOPICAL PATCH TD SCH (10:18)
[2022-01-31] MEDS: NICOTINE 10 MG CARTRIDGE (INHALER) IH PRN (10:19)
[2022-01-31] MEDS: COLLOIDAL OATMEAL 1 BAR EACH TP PRN (10:20)
[2022-01-31] MEDS: TOLNAFTATE 1% CREAM 15 GM TUBE TP SCH ×2 (10:32→21:33)
[2022-01-31] MEDS: MELATONIN 5 MG TABLETS PO SCH (21:32)
[2022-01-31] MEDS: traZODone HCL 100 MG TABLET (FP) PO SCH (21:32)
[2022-01-31] MEDS: THIAMINE HCL 100 MG TABLET (FP) PO SCH (21:33)
[2022-01-31] MEDS: OLANZapine 10 MG TABLET PO SCH (21:35)
[2022-02-01] MEDS: BUPRENORPHINE/NALOXONE 8 MG/2 MG FILM PACKET SL SCH ×3 (07:55→21:25)
[2022-02-01] MEDS: FERROUS SO4 325 MG TABLET (FP) PO SCH ×3 (07:55→16:54)
[2022-02-01] MEDS: PRENATAL VITAMINS W/ FOLIC ACID TABLET (FP) PO SCH (09:51)
[2022-02-01] MEDS: GABAPENTIN 300 MG CAPSULE PO SCH ×2 (09:52→21:23)
[2022-02-01] MEDS: TOLNAFTATE 1% CREAM 15 GM TUBE TP SCH ×2 (09:52→21:26)
[2022-02-01] MEDS: PANTOPRAZOLE 40 MG TABLET PO SCH (09:52)
[2022-02-01] MEDS: amLODIPine BESYLATE 10 MG TABLET (FP) PO SCH (09:52)
[2022-02-01] MEDS: NICOTINE 7 MG/24 HOURS TOPICAL PATCH TD SCH (09:52)
[2022-02-01] MEDS: SERTRALINE HCL 50 MG TABLET (FP) PO SCH (09:52)
[2022-02-01] MEDS: NICOTINE 10 MG CARTRIDGE (INHALER) IH PRN (21:22)
[2022-02-01] MEDS: OLANZapine 10 MG TABLET PO SCH (21:23)
[2022-02-01] MEDS: MELATONIN 5 MG TABLETS PO SCH (21:23)
[2022-02-01] MEDS: THIAMINE HCL 100 MG TABLET (FP) PO SCH (21:23)
[2022-02-01] MEDS: traZODone HCL 100 MG TABLET (FP) PO SCH (21:23)
[2022-02-02] MEDS: BUPRENORPHINE/NALOXONE 8 MG/2 MG FILM PACKET SL SCH ×3 (06:55→21:16)
[2022-02-02] MEDS: FERROUS SO4 325 MG TABLET (FP) PO SCH ×3 (07:22→17:06)
[2022-02-02] MEDS: PRENATAL VITAMINS W/ FOLIC ACID TABLET (FP) PO SCH (09:56)
[2022-02-02] MEDS: GABAPENTIN 300 MG CAPSULE PO SCH ×2 (09:57→21:14)
[2022-02-02] MEDS: amLODIPine BESYLATE 10 MG TABLET (FP) PO SCH (09:57)
[2022-02-02] MEDS: SERTRALINE HCL 50 MG TABLET (FP) PO SCH (09:57)
[2022-02-02] MEDS: PANTOPRAZOLE 40 MG TABLET PO SCH (09:57)
[2022-02-02] MEDS: TOLNAFTATE 1% CREAM 15 GM TUBE TP SCH ×2 (09:58→21:14)
[2022-02-02] MEDS: NICOTINE 7 MG/24 HOURS TOPICAL PATCH TD SCH (09:58)
[2022-02-02] MEDS: NICOTINE 10 MG CARTRIDGE (INHALER) IH PRN ×3 (13:18→21:17)
[2022-02-02] MEDS: OLANZapine 10 MG TABLET PO SCH (21:14)
[2022-02-02] MEDS: THIAMINE HCL 100 MG TABLET (FP) PO SCH (21:14)
[2022-02-02] MEDS: traZODone HCL 100 MG TABLET (FP) PO SCH (21:14)
[2022-02-02] MEDS: MELATONIN 5 MG TABLETS PO SCH (21:14)
[2022-02-03] MEDS: FERROUS SO4 325 MG TABLET (FP) PO SCH ×3 (07:08→17:16)
[2022-02-03] MEDS: BUPRENORPHINE/NALOXONE 8 MG/2 MG FILM PACKET SL SCH ×3 (07:09→21:23)
[2022-02-03] MEDS: GABAPENTIN 300 MG CAPSULE PO SCH ×2 (09:58→21:23)
[2022-02-03] MEDS: amLODIPine BESYLATE 10 MG TABLET (FP) PO SCH (09:58)
[2022-02-03] MEDS: PANTOPRAZOLE 40 MG TABLET PO SCH (09:58)
[2022-02-03] MEDS: SERTRALINE HCL 50 MG TABLET (FP) PO SCH (09:58)
[2022-02-03] MEDS: PRENATAL VITAMINS W/ FOLIC ACID TABLET (FP) PO SCH (09:58)
[2022-02-03] MEDS: NICOTINE 7 MG/24 HOURS TOPICAL PATCH TD SCH (09:59)
[2022-02-03] MEDS: TOLNAFTATE 1% CREAM 15 GM TUBE TP SCH ×2 (10:00→22:41)
[2022-02-03] MEDS: NICOTINE 10 MG CARTRIDGE (INHALER) IH PRN ×2 (11:18→17:14)
[2022-02-03] MEDS: THIAMINE HCL 100 MG TABLET (FP) PO SCH (21:23)
[2022-02-03] MEDS: traZODone HCL 100 MG TABLET (FP) PO SCH (21:23)
[2022-02-03] MEDS: OLANZapine 10 MG TABLET PO SCH (21:23)
[2022-02-03] MEDS: MELATONIN 5 MG TABLETS PO SCH (22:41)
[2022-02-04] MEDS: BUPRENORPHINE/NALOXONE 8 MG/2 MG FILM PACKET SL SCH (06:50)
[2022-02-04] MEDS: FERROUS SO4 325 MG TABLET (FP) PO SCH (07:00)
[2022-02-04 07:07] VITALS: BP 128/70; PULSE 66; TEMP 97.8
[2022-02-04] MEDS: NICOTINE 10 MG CARTRIDGE (INHALER) IH PRN (09:15)
[2022-02-04] MEDS: NICOTINE 7 MG/24 HOURS TOPICAL PATCH TD SCH (10:11)
[2022-02-04] MEDS: PRENATAL VITAMINS W/ FOLIC ACID TABLET (FP) PO SCH (10:11)
[2022-02-04] MEDS: amLODIPine BESYLATE 10 MG TABLET (FP) PO SCH (10:12)
[2022-02-04] MEDS: SERTRALINE HCL 50 MG TABLET (FP) PO SCH (10:12)
[2022-02-04] MEDS: PANTOPRAZOLE 40 MG TABLET PO SCH (10:12)
[2022-02-04] MEDS: GABAPENTIN 300 MG CAPSULE PO SCH (10:12)
[2022-02-04] MEDS: TOLNAFTATE 1% CREAM 15 GM TUBE TP SCH (10:13)
== END 2022-02-04 11:00 | disposition home or self-care (01) | DRG 772 ==
LOC: YASAS 17:43 → Y3W 17:44 → Y5N 01-25 16:12
PROVIDERS: ADMIT Allergy & Immunology; ATTEND Allergy & Immunology
PROC: HZ42ZZZ Group Counseling for Substance Abuse Treatment, Cognitive-Behavioral (ICD-10-PCS; principal; 2022-01-07)
DX: F11.20 Opioid dependence, uncomplicated (principal); F14.20 Cocaine dependence, uncomplicated; F12.20 Cannabis dependence, uncomplicated; F17.210 Nicotine dependence, cigarettes, uncomplicated; F31.9 Bipolar disorder, unspecified; F20.9 Schizophrenia, unspecified; D64.9 Anemia, unspecified; E78.5 Hyperlipidemia, unspecified; I10 Essential (primary) hypertension; K21.9 Gastro-esophageal reflux disease without esophagitis
CPT/HCPCS: C9803-CS; U0003; U0005

== ENCOUNTER 2023-08-29 14:23 | Inpatient (IN) | payer OTHER ==
[2023-08-29 15:07] VITALS: BMI 22.0
[2023-08-29] MEDS ORDERED: BENZOCAINE/MENTHOL (CHLORASEPTIC ) LOZENGE MM PRN (17:14)
[2023-08-29] MEDS ORDERED: BISMUTH SUBSALICYLATE 524 MG/30 ML PO PRN (17:14)
[2023-08-29] MEDS ORDERED: ACETAMINOPHEN 325 MG TABLET (FP) PO PRN (17:14)
[2023-08-29] MEDS ORDERED: POLYETHYLENE GLYCOL (HEALTHYLAX) 3350 17 GM PACKET PO PRN (17:14)
[2023-08-29] MEDS ORDERED: guaiFENesin 600 MG TABLET.ER (FP) PO PRN (17:14)
[2023-08-29] MEDS ORDERED: ONDANSETRON *ODT* 4 MG TABLET SL PRN (17:14)
[2023-08-29] MEDS ORDERED: MAG HYDROX/AL HYDROX/SIMETH 30 ML UNIT-DOSE CUP PO PRN (17:14)
[2023-08-29] MEDS ORDERED: DICYCLOMINE HCL 10 MG CAPSULE PO PRN (17:14)
[2023-08-29] MEDS ORDERED: NALOXONE HCL (KLOXXADO) 8 MG SPRAY NS PRN (17:14)
[2023-08-29] MEDS ORDERED: BENZONATATE 200 MG CAPSULE PO PRN (17:14)
[2023-08-29] MEDS ORDERED: hydrOXYzine PAMOATE 25 MG CAPSULE (FP) PO PRN (17:14)
[2023-08-29] MEDS ORDERED: IBUPROFEN 400 MG TABLET (FP) PO PRN (17:14)
[2023-08-29] MEDS ORDERED: METHOCARBAMOL 500 MG TABLET PO PRN (17:14)
[2023-08-29] MEDS ORDERED: IBUPROFEN 600 MG TABLET (FP) PO PRN (17:14)
[2023-08-29] MEDS ORDERED: LOPERAMIDE HCL 2 MG CAPSULE PO PRN (17:14)
[2023-08-29] MEDS ORDERED: NALOXONE HCL 0.4 MG/ML VIAL IM PRN (17:14)
[2023-08-29] MEDS ORDERED: MAGNESIUM HYDROX 2400MG/30ML ORAL SUSPENSION 30 ML CUP PO PRN (17:14)
[2023-08-29] MEDS ORDERED: methaDONE HCL 10 MG TABLET (FOR DETOX USE ONLY) PO ONE (20:46)
[2023-08-29] MEDS: cloNIDine HCL 0.1 MG TABLET PO PRN (21:55)
[2023-08-29] MEDS ORDERED: THIAMINE HCL 100 MG TABLET (FP) PO SCH (22:00)
[2023-08-29] MEDS ORDERED: MELATONIN 5 MG TABLETS PO SCH (22:00)
[2023-08-30] MEDS ORDERED: PRENATAL VITAMINS W/ FOLIC ACID TABLET (FP) PO SCH (10:00)
[2023-08-30] MEDS: SERTRALINE HCL 50 MG TABLET (FP) PO SCH (10:28)
[2023-08-30] MEDS ORDERED: ACETAMINOPHEN 325 MG TABLET (FP) PO PRN (13:15)
[2023-08-30] MEDS ORDERED: ONDANSETRON *ODT* 4 MG TABLET SL PRN (13:15)
[2023-08-30] MEDS ORDERED: IBUPROFEN 600 MG TABLET (FP) PO PRN (13:15)
[2023-08-30] MEDS ORDERED: BENZONATATE 200 MG CAPSULE PO PRN (13:15)
[2023-08-30] MEDS ORDERED: NALOXONE HCL (KLOXXADO) 8 MG SPRAY NS PRN (13:15)
[2023-08-30] MEDS ORDERED: LOPERAMIDE HCL 2 MG CAPSULE PO PRN (13:15)
[2023-08-30] MEDS ORDERED: NALOXONE HCL 0.4 MG/ML VIAL IM PRN (13:15)
[2023-08-30] MEDS ORDERED: MAG HYDROX/AL HYDROX/SIMETH 30 ML UNIT-DOSE CUP PO PRN (13:15)
[2023-08-30] MEDS ORDERED: BISMUTH SUBSALICYLATE 524 MG/30 ML PO PRN (13:15)
[2023-08-30] MEDS ORDERED: hydrOXYzine PAMOATE 25 MG CAPSULE (FP) PO PRN (13:15)
[2023-08-30] MEDS ORDERED: MAGNESIUM HYDROX 2400MG/30ML ORAL SUSPENSION 30 ML CUP PO PRN (13:15)
[2023-08-30] MEDS ORDERED: BENZOCAINE/MENTHOL (CHLORASEPTIC ) LOZENGE MM PRN (13:15)
[2023-08-30] MEDS ORDERED: DICYCLOMINE HCL 10 MG CAPSULE PO PRN (13:15)
[2023-08-30] MEDS ORDERED: POLYETHYLENE GLYCOL (HEALTHYLAX) 3350 17 GM PACKET PO PRN (13:15)
[2023-08-30] MEDS ORDERED: guaiFENesin 600 MG TABLET.ER (FP) PO PRN (13:15)
[2023-08-30] MEDS ORDERED: IBUPROFEN 400 MG TABLET (FP) PO PRN (13:15)
[2023-08-30] MEDS: diazePAM 5 MG TABLET PO PRN (14:24)
[2023-08-30] MEDS: METHOCARBAMOL 500 MG TABLET PO PRN (14:24)
[2023-08-30] MEDS: cloNIDine HCL 0.1 MG TABLET PO PRN (17:20)
[2023-08-30] MEDS ORDERED: MELATONIN 5 MG TABLETS PO SCH (22:00)
[2023-08-30] MEDS: OLANZapine 10 MG TABLET PO SCH (22:32)
[2023-08-30] MEDS: traZODone HCL 100 MG TABLET (FP) PO SCH (22:32)
[2023-08-30] MEDS: THIAMINE HCL 100 MG TABLET (FP) PO SCH (22:32)
[2023-08-30] MEDS: BENZTROPINE MESYLATE 1 MG TABLET PO SCH (22:32)
[2023-08-31] MEDS ORDERED: methaDONE HCL 10 MG TABLET (FOR DETOX USE ONLY) PO ONE (10:00)
[2023-08-31] MEDS ORDERED: PANTOPRAZOLE 40 MG TABLET PO SCH (10:15)
[2023-08-31] MEDS: PRENATAL VITAMINS W/ FOLIC ACID TABLET (FP) PO SCH (10:24)
[2023-08-31] MEDS: SERTRALINE HCL 50 MG TABLET (FP) PO SCH (10:27)
[2023-08-31] MEDS: PANTOPRAZOLE 40 MG TABLET PO SCH (10:30)
[2023-08-31 11:36] LABS: HEMATOCRIT 33.4 % (35.4-49); HEMOGLOBIN 11.2 GM/dL (11.7-16.9); MCH 28.6 pg (25.7-33.7); MCHC 33.7 g/dl (32.0-35.9); MEAN CELL VOLUME 84.9 fl (80-96); MEAN PLT VOLUME 8.6 fl (7.5-11.1); PLATELET COUNT 159 10^3/uL (134-434); RBC 3.93 M/mm3 (4.00-5.60); RDW 15.3 % (11.9-15.9); WHITE BLOOD COUNT 2.9 K/mm3 (4.0-10.0)
[2023-08-31 12:01] LABS: CHLORIDE 106 mmol/L (98-107); POTASSIUM 4.2 mmol/L (3.5-5.1); SODIUM 138 mmol/L (136-145)
[2023-08-31 12:05] LABS: ANION GAP 6 mmol/L (4-13); CALCIUM 8.9 mg/dL (8.5-10.1); CO2 25 mmol/L (21-32); GLUCOSE,RANDOM 104 mg/dL (74-106)
[2023-08-31 12:08] LABS: CREATININE 0.9 mg/dL (0.55-1.3); SGOT/AST 37 U/L (15-37); SGPT/ALT 28 U/L (13-61)
[2023-08-31 12:09] LABS: ALBUMIN 3.4 g/dl (3.4-5.0); BLOOD UREA NITROGEN 10.1 mg/dL (7-18)
[2023-08-31 12:10] LABS: BILIRUBIN,TOTAL 0.6 mg/dL (0.2-1)
[2023-08-31 12:11] LABS: ALK PHOS 95 U/L (45-117)
[2023-08-31] MEDS ORDERED: ALBUTEROL SO4 2.5/IPRATROPIUM 0.5 INH SOL 3 ML VIAL.NEB. NEB ONE (17:50)
[2023-08-31] MEDS ORDERED: GABAPENTIN 300 MG CAPSULE PO ONE (18:49)
[2023-08-31] MEDS: predniSONE 20 MG TABLET (UD) PO SCH (19:16)
[2023-08-31] MEDS: THIAMINE HCL 100 MG TABLET (FP) PO SCH (21:55)
[2023-08-31] MEDS: traZODone HCL 100 MG TABLET (FP) PO SCH (21:55)
[2023-08-31] MEDS: BENZTROPINE MESYLATE 1 MG TABLET PO SCH (21:55)
[2023-08-31] MEDS: OLANZapine 10 MG TABLET PO SCH (21:55)
[2023-08-31] MEDS ORDERED: GABAPENTIN 300 MG CAPSULE PO SCH (22:00)
[2023-08-31] MEDS: CYPROHEPTADINE HCL 4 MG TABLET PO SCH (23:38)
[2023-09-01] MEDS: CYPROHEPTADINE HCL 4 MG TABLET PO SCH ×3 (06:06→17:34)
[2023-09-01] MEDS: METHOCARBAMOL 500 MG TABLET PO PRN (07:00)
[2023-09-01] MEDS: PRENATAL VITAMINS W/ FOLIC ACID TABLET (FP) PO SCH (09:55)
[2023-09-01] MEDS: GABAPENTIN 300 MG CAPSULE PO SCH ×2 (09:56→22:22)
[2023-09-01] MEDS: predniSONE 20 MG TABLET (UD) PO SCH (09:56)
[2023-09-01] MEDS: SERTRALINE HCL 50 MG TABLET (FP) PO SCH (09:57)
[2023-09-01] MEDS: amLODIPine BESYLATE 10 MG TABLET (FP) PO SCH (11:14)
[2023-09-01] MEDS: PANTOPRAZOLE 40 MG TABLET PO SCH (11:15)
[2023-09-01] MEDS: diazePAM 5 MG TABLET PO PRN (18:52)
[2023-09-01] MEDS: THIAMINE HCL 100 MG TABLET (FP) PO SCH (22:22)
[2023-09-01] MEDS: BENZTROPINE MESYLATE 1 MG TABLET PO SCH (22:22)
[2023-09-01] MEDS: traZODone HCL 100 MG TABLET (FP) PO SCH (22:22)
[2023-09-01] MEDS: OLANZapine 10 MG TABLET PO SCH (22:22)
[2023-09-02] MEDS: CYPROHEPTADINE HCL 4 MG TABLET PO SCH ×3 (07:01→16:47)
[2023-09-02] MEDS ORDERED: methaDONE HCL 10 MG TABLET (FOR DETOX USE ONLY) PO ONE (10:00)
[2023-09-02] MEDS: PRENATAL VITAMINS W/ FOLIC ACID TABLET (FP) PO SCH (10:34)
[2023-09-02] MEDS: SERTRALINE HCL 50 MG TABLET (FP) PO SCH (10:34)
[2023-09-02] MEDS: PANTOPRAZOLE 40 MG TABLET PO SCH (10:34)
[2023-09-02] MEDS: GABAPENTIN 300 MG CAPSULE PO SCH ×2 (10:34→22:10)
[2023-09-02] MEDS: predniSONE 20 MG TABLET (UD) PO SCH (10:34)
[2023-09-02] MEDS: amLODIPine BESYLATE 10 MG TABLET (FP) PO SCH (10:37)
[2023-09-02] MEDS: NAPROXEN 500 MG TABLET PO PRN (17:23)
[2023-09-02] MEDS: METHOCARBAMOL 500 MG TABLET PO PRN (17:24)
[2023-09-02] MEDS: traZODone HCL 100 MG TABLET (FP) PO SCH (22:10)
[2023-09-02] MEDS: BENZTROPINE MESYLATE 1 MG TABLET PO SCH (22:10)
[2023-09-02] MEDS: THIAMINE HCL 100 MG TABLET (FP) PO SCH (22:10)
[2023-09-02] MEDS: OLANZapine 10 MG TABLET PO SCH (22:11)
[2023-09-03] MEDS: CYPROHEPTADINE HCL 4 MG TABLET PO SCH ×3 (07:30→16:52)
[2023-09-03] MEDS: predniSONE 20 MG TABLET (UD) PO SCH (10:12)
[2023-09-03] MEDS: SERTRALINE HCL 50 MG TABLET (FP) PO SCH (10:12)
[2023-09-03] MEDS: PRENATAL VITAMINS W/ FOLIC ACID TABLET (FP) PO SCH (10:12)
[2023-09-03] MEDS: amLODIPine BESYLATE 10 MG TABLET (FP) PO SCH (10:12)
[2023-09-03] MEDS: PANTOPRAZOLE 40 MG TABLET PO SCH (10:12)
[2023-09-03] MEDS: GABAPENTIN 300 MG CAPSULE PO SCH ×2 (10:12→22:15)
[2023-09-03] MEDS: OLANZapine 10 MG TABLET PO SCH (22:15)
[2023-09-03] MEDS: THIAMINE HCL 100 MG TABLET (FP) PO SCH (22:15)
[2023-09-03] MEDS: traZODone HCL 100 MG TABLET (FP) PO SCH (22:15)
[2023-09-03] MEDS: NAPROXEN 500 MG TABLET PO PRN (22:15)
[2023-09-03] MEDS: BENZTROPINE MESYLATE 1 MG TABLET PO SCH (22:15)
[2023-09-03] MEDS: METHOCARBAMOL 500 MG TABLET PO PRN (22:15)
[2023-09-04] MEDS: CYPROHEPTADINE HCL 4 MG TABLET PO SCH ×3 (06:08→16:51)
[2023-09-04] MEDS: GABAPENTIN 300 MG CAPSULE PO SCH ×2 (10:11→22:07)
[2023-09-04] MEDS: SERTRALINE HCL 50 MG TABLET (FP) PO SCH (10:11)
[2023-09-04] MEDS: amLODIPine BESYLATE 10 MG TABLET (FP) PO SCH (10:11)
[2023-09-04] MEDS: PANTOPRAZOLE 40 MG TABLET PO SCH (10:11)
[2023-09-04] MEDS: METHOCARBAMOL 500 MG TABLET PO PRN (10:11)
[2023-09-04] MEDS: PRENATAL VITAMINS W/ FOLIC ACID TABLET (FP) PO SCH (10:12)
[2023-09-04] MEDS: predniSONE 20 MG TABLET (UD) PO SCH (10:12)
[2023-09-04] MEDS: cloNIDine HCL 0.1 MG TABLET PO PRN (13:50)
[2023-09-04] MEDS: LISINOPRIL 5 MG TABLET PO SCH (13:50)
[2023-09-04] MEDS ORDERED: COLLOIDAL OATMEAL 1 BAR EACH TP PRN (18:57)
[2023-09-04] MEDS: traZODone HCL 100 MG TABLET (FP) PO SCH (22:07)
[2023-09-04] MEDS: BENZTROPINE MESYLATE 1 MG TABLET PO SCH (22:07)
[2023-09-04] MEDS: OLANZapine 10 MG TABLET PO SCH (22:07)
[2023-09-04] MEDS: THIAMINE HCL 100 MG TABLET (FP) PO SCH (22:07)
[2023-09-05] MEDS: cloNIDine HCL 0.1 MG TABLET PO PRN (00:58)
[2023-09-05] MEDS: METHOCARBAMOL 500 MG TABLET PO PRN (00:58)
[2023-09-05] MEDS: CYPROHEPTADINE HCL 4 MG TABLET PO SCH ×3 (06:05→15:54)
[2023-09-05] MEDS: SERTRALINE HCL 50 MG TABLET (FP) PO SCH (10:23)
[2023-09-05] MEDS: GABAPENTIN 300 MG CAPSULE PO SCH ×2 (10:23→23:03)
[2023-09-05] MEDS: LISINOPRIL 5 MG TABLET PO SCH (10:23)
[2023-09-05] MEDS: PRENATAL VITAMINS W/ FOLIC ACID TABLET (FP) PO SCH (10:23)
[2023-09-05] MEDS: amLODIPine BESYLATE 10 MG TABLET (FP) PO SCH (10:23)
[2023-09-05] MEDS: PANTOPRAZOLE 40 MG TABLET PO SCH (10:23)
[2023-09-05] MEDS: OLANZapine 10 MG TABLET PO SCH (23:02)
[2023-09-05] MEDS: traZODone HCL 100 MG TABLET (FP) PO SCH (23:03)
[2023-09-05] MEDS: THIAMINE HCL 100 MG TABLET (FP) PO SCH (23:05)
[2023-09-05] MEDS: BENZTROPINE MESYLATE 1 MG TABLET PO SCH (23:05)
[2023-09-06] MEDS: cloNIDine HCL 0.1 MG TABLET PO PRN ×3 (01:26→22:13)
[2023-09-06] MEDS: CYPROHEPTADINE HCL 4 MG TABLET PO SCH ×3 (06:06→17:48)
[2023-09-06] MEDS: PRENATAL VITAMINS W/ FOLIC ACID TABLET (FP) PO SCH (10:25)
[2023-09-06] MEDS: amLODIPine BESYLATE 10 MG TABLET (FP) PO SCH (10:26)
[2023-09-06] MEDS: GABAPENTIN 300 MG CAPSULE PO SCH ×2 (10:26→22:13)
[2023-09-06] MEDS: SERTRALINE HCL 50 MG TABLET (FP) PO SCH (10:26)
[2023-09-06] MEDS: LISINOPRIL 5 MG TABLET PO SCH (10:26)
[2023-09-06] MEDS: PANTOPRAZOLE 40 MG TABLET PO SCH (10:39)
[2023-09-06] MEDS: traZODone HCL 100 MG TABLET (FP) PO SCH (22:13)
[2023-09-06] MEDS: BENZTROPINE MESYLATE 1 MG TABLET PO SCH (22:13)
[2023-09-06] MEDS: THIAMINE HCL 100 MG TABLET (FP) PO SCH (22:14)
[2023-09-06] MEDS: OLANZapine 10 MG TABLET PO SCH (22:14)
[2023-09-06] MEDS ORDERED: ALBUTEROL SO4 HFA INHALER IH PRN (23:12)
[2023-09-07] MEDS: CYPROHEPTADINE HCL 4 MG TABLET PO SCH ×3 (06:31→18:40)
[2023-09-07] MEDS: PRENATAL VITAMINS W/ FOLIC ACID TABLET (FP) PO SCH (09:53)
[2023-09-07] MEDS: GABAPENTIN 300 MG CAPSULE PO SCH (09:56)
[2023-09-07] MEDS: SERTRALINE HCL 50 MG TABLET (FP) PO SCH (09:56)
[2023-09-07] MEDS: LISINOPRIL 5 MG TABLET PO SCH (09:56)
[2023-09-07] MEDS: amLODIPine BESYLATE 10 MG TABLET (FP) PO SCH (09:56)
[2023-09-07] MEDS: PANTOPRAZOLE 40 MG TABLET PO SCH (10:39)
[2023-09-07] MEDS: cloNIDine HCL 0.1 MG TABLET PO PRN (13:27)
[2023-09-07] MEDS ORDERED: HYDROCHLOROTHIAZIDE 12.5 MG CAPSULE (FP) PO ONE (15:45)
[2023-09-08] MEDS: cloNIDine HCL 0.1 MG TABLET PO PRN (00:47)
[2023-09-08] MEDS: traZODone HCL 100 MG TABLET (FP) PO SCH (00:47)
[2023-09-08] MEDS: OLANZapine 10 MG TABLET PO SCH (00:48)
[2023-09-08] MEDS: GABAPENTIN 300 MG CAPSULE PO SCH ×2 (00:48→10:45)
[2023-09-08] MEDS: THIAMINE HCL 100 MG TABLET (FP) PO SCH (00:59)
[2023-09-08] MEDS: BENZTROPINE MESYLATE 1 MG TABLET PO SCH (00:59)
[2023-09-08 09:47] VITALS: RESP 20
[2023-09-08] MEDS ORDERED: LISINOPRIL 10 MG TABLET PO SCH (10:00)
[2023-09-08] MEDS: PRENATAL VITAMINS W/ FOLIC ACID TABLET (FP) PO SCH (10:43)
[2023-09-08] MEDS: SERTRALINE HCL 50 MG TABLET (FP) PO SCH (10:44)
[2023-09-08] MEDS: amLODIPine BESYLATE 10 MG TABLET (FP) PO SCH (10:47)
[2023-09-08] MEDS: PANTOPRAZOLE 40 MG TABLET PO SCH (10:48)
[2023-09-08 13:06] VITALS: BP 107/82; PULSE 103; TEMP 97.7
== END 2023-09-08 12:28 | disposition other institution (70) | DRG 773 ==
LOC: YASAS 14:23 → Y6N 17:33
PROVIDERS: ADMIT Allergy & Immunology; ATTEND Surgery
PROC: HZ2ZZZZ Detoxification Services for Substance Abuse Treatment (ICD-10-PCS; principal; 2023-08-29)
DX: F11.23 Opioid dependence with withdrawal (principal); F13.20 Sedative, hypnotic or anxiolytic dependence, uncomplicated; F14.20 Cocaine dependence, uncomplicated; F17.210 Nicotine dependence, cigarettes, uncomplicated; F25.1 Schizoaffective disorder, depressive type; F31.9 Bipolar disorder, unspecified; F19.282 Other psychoactive substance dependence with psychoactive substance-induced sleep disorder; F19.280 Other psychoactive substance dependence with psychoactive substance-induced anxiety disorder; F19.24 Other psychoactive substance dependence with psychoactive substance-induced mood disorder; D72.810 Lymphocytopenia; D64.9 Anemia, unspecified; I10 Essential (primary) hypertension; J45.20 Mild intermittent asthma, uncomplicated; K21.9 Gastro-esophageal reflux disease without esophagitis; M19.90 Unspecified osteoarthritis, unspecified site; R45.851 Suicidal ideations; R45.850 Homicidal ideations; R63.6 Underweight; Z68.22 Body mass index [BMI] 22.0-22.9, adult; Z91.51 Personal history of suicidal behavior
CPT/HCPCS: 36415; 71046-TC-FY; 80053; 80307; 85027; 86780; 87635; 94640; Q0162

== ENCOUNTER 2023-09-08 12:37 | Inpatient (IN) | payer OTHER ==
[~2023-09-08 12:37] MED LIST changes: +ALBUTEROL SO4 HFA INHALER IH PRN; +BENZOCAINE/MENTHOL (CHLORASEPTIC ) LOZENGE MM PRN; +BENZONATATE 200 MG CAPSULE PO PRN; +IBUPROFEN 600 MG TABLET (FP) PO PRN; -MAGNESIUM CITRATE 300 ML BOTTLE PO PRN; +METHOCARBAMOL 500 MG TABLET PO PRN; +NALOXONE HCL (KLOXXADO) 8 MG SPRAY NS PRN; +NALOXONE HCL 0.4 MG/ML VIAL IVPUSH PRN; -NICOTINE 10 MG CARTRIDGE (INHALER) IH PRN; +NICOTINE 14 MG/24 HOURS TOPICAL PATCH TD PRN; +NICOTINE POLACRILEX 2 MG GUM BUC PRN; -P-EPHED 60MG/TRIPROLIDI 2.5MG TABLET PO PRN; +POLYETHYLENE GLYCOL (HEALTHYLAX) 3350 17 GM PACKET PO PRN; -guaiFENesin 200 MG/10 ML 10 ML UNIT-DOSE CUPS PO PRN; +guaiFENesin 600 MG TABLET.ER (FP) PO PRN; +hydrOXYzine PAMOATE 25 MG CAPSULE (FP) PO PRN
[2023-09-08] MEDS ORDERED: BUPRENORPHINE HCL 150 MCG, BUPRENORPHINE HCL 75 MCG BC ONE (14:04)
[2023-09-08] MEDS ORDERED: COLLOIDAL OATMEAL 1 BAR EACH TP PRN (14:16)
[2023-09-08] MEDS ORDERED: IBUPROFEN 600 MG TABLET (FP) PO PRN (14:17)
[2023-09-08] MEDS ORDERED: AMMONIUM LACTATE 12% LOTION 225 GM BOTTLE TP PRN (14:18)
[2023-09-08] MEDS: BUPRENORPHINE HCL 450 MCG FILM BC SCH ×2 (14:23→21:13)
[2023-09-08] MEDS: MELATONIN 5 MG TABLETS PO SCH (21:12)
[2023-09-08] MEDS: OLANZapine 10 MG TABLET PO SCH (21:12)
[2023-09-08] MEDS: GABAPENTIN 300 MG CAPSULE PO SCH (21:12)
[2023-09-08] MEDS: traZODone HCL 100 MG TABLET (FP) PO SCH (21:12)
[2023-09-08] MEDS: THIAMINE HCL 100 MG TABLET (FP) PO SCH (21:14)
[2023-09-09] MEDS ORDERED: BUPRENORPHINE HCL 150 MCG, BUPRENORPHINE HCL 75 MCG BC PRN
[2023-09-09] MEDS: BUPRENORPHINE/NALOXONE 4 MG/1 MG FILM PACKET SL SCH ×2 (06:49→17:04)
[2023-09-09] MEDS: GABAPENTIN 300 MG CAPSULE PO SCH ×2 (09:34→21:36)
[2023-09-09] MEDS: HYDROCHLOROTHIAZIDE 12.5 MG CAPSULE (FP) PO SCH (09:34)
[2023-09-09] MEDS: amLODIPine BESYLATE 10 MG TABLET (FP) PO SCH (09:35)
[2023-09-09] MEDS: SERTRALINE HCL 50 MG TABLET (FP) PO SCH (09:35)
[2023-09-09] MEDS: LISINOPRIL 10 MG TABLET PO SCH (09:35)
[2023-09-09] MEDS: PRENATAL VITAMINS W/ FOLIC ACID TABLET (FP) PO SCH (09:35)
[2023-09-09] MEDS ORDERED: PATIENT'S OWN MEDICATION (NON-FORMULARY) (Sertraline Hcl [Zoloft] 100 MG Tablet) PO SCH (10:00)
[2023-09-09] MEDS: PANTOPRAZOLE 40 MG TABLET PO SCH (10:06)
[2023-09-09 11:01] LABS: EOS % 3.6 % (0-4.5); HEMATOCRIT 38.5 % (35.4-49); HEMOGLOBIN 12.8 GM/dL (11.7-16.9); LYMPH % 31.7 % (8-40); MCH 28.4 pg (25.7-33.7); MCHC 33.3 g/dl (32.0-35.9); MEAN CELL VOLUME 85.2 fl (80-96); MEAN PLT VOLUME 8.6 fl (7.5-11.1); MONO % 12.9 % (3.8-10.2); NEUT % 50.8 % (42.8-82.8); PLATELET COUNT 234 10^3/uL (134-434); RBC 4.53 M/mm3 (4.00-5.60); RDW 15.6 % (11.9-15.9)
[2023-09-09 11:03] LABS: POTASSIUM 4.4 mmol/L (3.5-5.1)
[2023-09-09 11:06] LABS: ALBUMIN 3.2 g/dl (3.4-5.0)
[2023-09-09 11:08] LABS: CALCIUM 9.4 mg/dL (8.5-10.1); CREATININE 0.7 mg/dL (0.55-1.3)
[2023-09-09 11:10] LABS: BILIRUBIN,TOTAL 0.4 mg/dL (0.2-1); TOT PROT 8.9 g/dl (6.4-8.2)
[2023-09-09] MEDS: BACITRACIN 0.9 GM PACKET TP SCH ×2 (12:35→21:35)
[2023-09-09] MEDS: COLLOIDAL OATMEAL 1 BAR EACH TP PRN (16:00)
[2023-09-09] MEDS: OLANZapine 10 MG TABLET PO SCH (21:35)
[2023-09-09] MEDS: THIAMINE HCL 100 MG TABLET (FP) PO SCH (21:35)
[2023-09-09] MEDS: traZODone HCL 100 MG TABLET (FP) PO SCH (21:35)
[2023-09-09] MEDS: MELATONIN 5 MG TABLETS PO SCH (21:37)
[2023-09-10] MEDS: BACITRACIN 0.9 GM PACKET TP SCH ×2 (10:02→21:24)
[2023-09-10] MEDS: GABAPENTIN 300 MG CAPSULE PO SCH ×2 (10:03→21:24)
[2023-09-10] MEDS: HYDROCHLOROTHIAZIDE 12.5 MG CAPSULE (FP) PO SCH (10:03)
[2023-09-10] MEDS: SERTRALINE HCL 50 MG TABLET (FP) PO SCH (10:04)
[2023-09-10] MEDS: PRENATAL VITAMINS W/ FOLIC ACID TABLET (FP) PO SCH (10:04)
[2023-09-10] MEDS: LISINOPRIL 10 MG TABLET PO SCH (10:04)
[2023-09-10] MEDS: BUPRENORPHINE/NALOXONE 8 MG/2 MG FILM PACKET SL SCH ×2 (10:04→21:25)
[2023-09-10] MEDS: amLODIPine BESYLATE 10 MG TABLET (FP) PO SCH (10:04)
[2023-09-10] MEDS: PANTOPRAZOLE 40 MG TABLET PO SCH (10:05)
[2023-09-10] MEDS: THIAMINE HCL 100 MG TABLET (FP) PO SCH (21:23)
[2023-09-10] MEDS: OLANZapine 10 MG TABLET PO SCH (21:24)
[2023-09-10] MEDS: MELATONIN 5 MG TABLETS PO SCH (21:24)
[2023-09-10] MEDS: traZODone HCL 100 MG TABLET (FP) PO SCH (21:24)
[2023-09-11] MEDS: amLODIPine BESYLATE 10 MG TABLET (FP) PO SCH (09:40)
[2023-09-11] MEDS: HYDROCHLOROTHIAZIDE 12.5 MG CAPSULE (FP) PO SCH (09:40)
[2023-09-11] MEDS: GABAPENTIN 300 MG CAPSULE PO SCH ×2 (09:40→21:14)
[2023-09-11] MEDS: LISINOPRIL 10 MG TABLET PO SCH (09:41)
[2023-09-11] MEDS: PRENATAL VITAMINS W/ FOLIC ACID TABLET (FP) PO SCH (09:41)
[2023-09-11] MEDS: SERTRALINE HCL 50 MG TABLET (FP) PO SCH (09:42)
[2023-09-11] MEDS: BACITRACIN 0.9 GM PACKET TP SCH ×2 (09:42→21:14)
[2023-09-11] MEDS: BUPRENORPHINE/NALOXONE 8 MG/2 MG FILM PACKET SL SCH ×2 (09:42→21:14)
[2023-09-11] MEDS: PANTOPRAZOLE 40 MG TABLET PO SCH (10:46)
[2023-09-11] MEDS: MELATONIN 5 MG TABLETS PO SCH (21:14)
[2023-09-11] MEDS: THIAMINE HCL 100 MG TABLET (FP) PO SCH (21:14)
[2023-09-11] MEDS: traZODone HCL 100 MG TABLET (FP) PO SCH (21:14)
[2023-09-11] MEDS: OLANZapine 10 MG TABLET PO SCH (21:14)
[2023-09-12] MEDS: BACITRACIN 0.9 GM PACKET TP SCH ×2 (10:16→21:48)
[2023-09-12] MEDS: BUPRENORPHINE/NALOXONE 8 MG/2 MG FILM PACKET SL SCH ×2 (10:16→21:48)
[2023-09-12] MEDS: LISINOPRIL 10 MG TABLET PO SCH (10:16)
[2023-09-12] MEDS: amLODIPine BESYLATE 10 MG TABLET (FP) PO SCH (10:17)
[2023-09-12] MEDS: GABAPENTIN 300 MG CAPSULE PO SCH ×2 (10:17→21:48)
[2023-09-12] MEDS: HYDROCHLOROTHIAZIDE 12.5 MG CAPSULE (FP) PO SCH (10:17)
[2023-09-12] MEDS: PANTOPRAZOLE 40 MG TABLET PO SCH (10:17)
[2023-09-12] MEDS: SERTRALINE HCL 50 MG TABLET (FP) PO SCH (10:18)
[2023-09-12] MEDS: PRENATAL VITAMINS W/ FOLIC ACID TABLET (FP) PO SCH (10:19)
[2023-09-12] MEDS ORDERED: TUBERCULIN PPD 5 TU/0.1ML VIAL ID ONE (18:00)
[2023-09-12] MEDS: traZODone HCL 100 MG TABLET (FP) PO SCH (21:48)
[2023-09-12] MEDS: THIAMINE HCL 100 MG TABLET (FP) PO SCH (21:48)
[2023-09-12] MEDS: MELATONIN 5 MG TABLETS PO SCH (21:48)
[2023-09-12] MEDS: OLANZapine 10 MG TABLET PO SCH (21:48)
[2023-09-13] MEDS: BUPRENORPHINE/NALOXONE 8 MG/2 MG FILM PACKET SL SCH ×2 (09:35→21:59)
[2023-09-13] MEDS: SERTRALINE HCL 50 MG TABLET (FP) PO SCH (09:35)
[2023-09-13] MEDS: BACITRACIN 0.9 GM PACKET TP SCH ×2 (09:35→21:59)
[2023-09-13] MEDS: GABAPENTIN 300 MG CAPSULE PO SCH ×2 (09:36→21:59)
[2023-09-13] MEDS: LISINOPRIL 10 MG TABLET PO SCH (09:36)
[2023-09-13] MEDS: amLODIPine BESYLATE 10 MG TABLET (FP) PO SCH (09:36)
[2023-09-13] MEDS: HYDROCHLOROTHIAZIDE 12.5 MG CAPSULE (FP) PO SCH (09:36)
[2023-09-13] MEDS: PRENATAL VITAMINS W/ FOLIC ACID TABLET (FP) PO SCH (09:37)
[2023-09-13] MEDS: PANTOPRAZOLE 40 MG TABLET PO SCH (10:02)
[2023-09-13] MEDS: THIAMINE HCL 100 MG TABLET (FP) PO SCH (21:57)
[2023-09-13] MEDS: MELATONIN 5 MG TABLETS PO SCH (21:57)
[2023-09-13] MEDS: OLANZapine 10 MG TABLET PO SCH (21:59)
[2023-09-13] MEDS: traZODone HCL 100 MG TABLET (FP) PO SCH (21:59)
[2023-09-14] MEDS: BUPRENORPHINE/NALOXONE 8 MG/2 MG FILM PACKET SL SCH ×2 (10:05→21:58)
[2023-09-14] MEDS: SERTRALINE HCL 50 MG TABLET (FP) PO SCH (10:06)
[2023-09-14] MEDS: PRENATAL VITAMINS W/ FOLIC ACID TABLET (FP) PO SCH (10:06)
[2023-09-14] MEDS: BACITRACIN 0.9 GM PACKET TP SCH ×2 (10:06→21:58)
[2023-09-14] MEDS: amLODIPine BESYLATE 10 MG TABLET (FP) PO SCH (10:07)
[2023-09-14] MEDS: PANTOPRAZOLE 40 MG TABLET PO SCH (10:07)
[2023-09-14] MEDS: LISINOPRIL 10 MG TABLET PO SCH (10:07)
[2023-09-14] MEDS: GABAPENTIN 300 MG CAPSULE PO SCH ×2 (10:07→21:58)
[2023-09-14] MEDS: HYDROCHLOROTHIAZIDE 12.5 MG CAPSULE (FP) PO SCH (10:07)
[2023-09-14] MEDS: MELATONIN 5 MG TABLETS PO SCH (21:57)
[2023-09-14] MEDS: THIAMINE HCL 100 MG TABLET (FP) PO SCH (21:57)
[2023-09-14] MEDS: traZODone HCL 100 MG TABLET (FP) PO SCH (21:58)
[2023-09-14] MEDS: OLANZapine 10 MG TABLET PO SCH (21:58)
[2023-09-15] MEDS: LISINOPRIL 10 MG TABLET PO SCH (09:57)
[2023-09-15] MEDS: BUPRENORPHINE/NALOXONE 8 MG/2 MG FILM PACKET SL SCH ×2 (09:57→21:29)
[2023-09-15] MEDS: amLODIPine BESYLATE 10 MG TABLET (FP) PO SCH (09:57)
[2023-09-15] MEDS: PRENATAL VITAMINS W/ FOLIC ACID TABLET (FP) PO SCH (09:57)
[2023-09-15] MEDS: GABAPENTIN 300 MG CAPSULE PO SCH ×2 (09:58→21:29)
[2023-09-15] MEDS: HYDROCHLOROTHIAZIDE 12.5 MG CAPSULE (FP) PO SCH (09:58)
[2023-09-15] MEDS: SERTRALINE HCL 50 MG TABLET (FP) PO SCH (09:58)
[2023-09-15] MEDS: BACITRACIN 0.9 GM PACKET TP SCH ×2 (09:58→21:29)
[2023-09-15] MEDS: PANTOPRAZOLE 40 MG TABLET PO SCH (11:00)
[2023-09-15] MEDS: COLLOIDAL OATMEAL 1 BAR EACH TP PRN (14:55)
[2023-09-15] MEDS: traZODone HCL 100 MG TABLET (FP) PO SCH (21:29)
[2023-09-15] MEDS: THIAMINE HCL 100 MG TABLET (FP) PO SCH (21:29)
[2023-09-15] MEDS: OLANZapine 10 MG TABLET PO SCH (21:29)
[2023-09-15] MEDS: MELATONIN 5 MG TABLETS PO SCH (21:29)
[2023-09-16] MEDS: PANTOPRAZOLE 40 MG TABLET PO SCH (10:09)
[2023-09-16] MEDS: PRENATAL VITAMINS W/ FOLIC ACID TABLET (FP) PO SCH (10:09)
[2023-09-16] MEDS: HYDROCHLOROTHIAZIDE 12.5 MG CAPSULE (FP) PO SCH (10:09)
[2023-09-16] MEDS: SERTRALINE HCL 50 MG TABLET (FP) PO SCH (10:09)
[2023-09-16] MEDS: GABAPENTIN 300 MG CAPSULE PO SCH ×2 (10:09→21:04)
[2023-09-16] MEDS: amLODIPine BESYLATE 10 MG TABLET (FP) PO SCH (10:09)
[2023-09-16] MEDS: LISINOPRIL 10 MG TABLET PO SCH (10:09)
[2023-09-16] MEDS: BUPRENORPHINE/NALOXONE 8 MG/2 MG FILM PACKET SL SCH ×2 (10:10→21:04)
[2023-09-16] MEDS: BACITRACIN 0.9 GM PACKET TP SCH ×2 (10:11→21:04)
[2023-09-16] MEDS: OLANZapine 10 MG TABLET PO SCH (21:04)
[2023-09-16] MEDS: traZODone HCL 100 MG TABLET (FP) PO SCH (21:04)
[2023-09-16] MEDS: THIAMINE HCL 100 MG TABLET (FP) PO SCH (21:04)
[2023-09-16] MEDS: MELATONIN 5 MG TABLETS PO SCH (21:04)
[2023-09-17] MEDS: HYDROCHLOROTHIAZIDE 12.5 MG CAPSULE (FP) PO SCH (10:06)
[2023-09-17] MEDS: BACITRACIN 0.9 GM PACKET TP SCH ×2 (10:06→21:09)
[2023-09-17] MEDS: BUPRENORPHINE/NALOXONE 8 MG/2 MG FILM PACKET SL SCH ×2 (10:06→21:09)
[2023-09-17] MEDS: amLODIPine BESYLATE 10 MG TABLET (FP) PO SCH (10:06)
[2023-09-17] MEDS: SERTRALINE HCL 50 MG TABLET (FP) PO SCH (10:06)
[2023-09-17] MEDS: PANTOPRAZOLE 40 MG TABLET PO SCH (10:06)
[2023-09-17] MEDS: GABAPENTIN 300 MG CAPSULE PO SCH ×2 (10:06→21:09)
[2023-09-17] MEDS: LISINOPRIL 10 MG TABLET PO SCH (10:07)
[2023-09-17] MEDS: PRENATAL VITAMINS W/ FOLIC ACID TABLET (FP) PO SCH (10:09)
[2023-09-17] MEDS: THIAMINE HCL 100 MG TABLET (FP) PO SCH (21:08)
[2023-09-17] MEDS: MELATONIN 5 MG TABLETS PO SCH (21:08)
[2023-09-17] MEDS: OLANZapine 10 MG TABLET PO SCH (21:09)
[2023-09-17] MEDS: traZODone HCL 100 MG TABLET (FP) PO SCH (21:09)
[2023-09-18] MEDS: GABAPENTIN 300 MG CAPSULE PO SCH ×2 (09:50→21:20)
[2023-09-18] MEDS: SERTRALINE HCL 50 MG TABLET (FP) PO SCH (09:50)
[2023-09-18] MEDS: HYDROCHLOROTHIAZIDE 12.5 MG CAPSULE (FP) PO SCH (09:50)
[2023-09-18] MEDS: BACITRACIN 0.9 GM PACKET TP SCH ×2 (09:51→21:20)
[2023-09-18] MEDS: amLODIPine BESYLATE 10 MG TABLET (FP) PO SCH (09:51)
[2023-09-18] MEDS: PRENATAL VITAMINS W/ FOLIC ACID TABLET (FP) PO SCH (09:51)
[2023-09-18] MEDS: LISINOPRIL 10 MG TABLET PO SCH (09:51)
[2023-09-18] MEDS: BUPRENORPHINE/NALOXONE 8 MG/2 MG FILM PACKET SL SCH ×2 (09:51→21:19)
[2023-09-18] MEDS: PANTOPRAZOLE 40 MG TABLET PO SCH (11:12)
[2023-09-18] MEDS: THIAMINE HCL 100 MG TABLET (FP) PO SCH (21:19)
[2023-09-18] MEDS: MELATONIN 5 MG TABLETS PO SCH (21:19)
[2023-09-18] MEDS: traZODone HCL 100 MG TABLET (FP) PO SCH (21:20)
[2023-09-18] MEDS: OLANZapine 10 MG TABLET PO SCH (21:20)
[2023-09-18] MEDS ORDERED: INSULIN (NOVOLOG) ASPART 100 UNITS/ML 10ML VIAL ONE (22:43)
[2023-09-19] MEDS: GABAPENTIN 300 MG CAPSULE PO SCH ×2 (10:08→21:34)
[2023-09-19] MEDS: LISINOPRIL 10 MG TABLET PO SCH (10:09)
[2023-09-19] MEDS: BACITRACIN 0.9 GM PACKET TP SCH ×2 (10:09→21:35)
[2023-09-19] MEDS: HYDROCHLOROTHIAZIDE 12.5 MG CAPSULE (FP) PO SCH (10:09)
[2023-09-19] MEDS: amLODIPine BESYLATE 10 MG TABLET (FP) PO SCH (10:09)
[2023-09-19] MEDS: SERTRALINE HCL 50 MG TABLET (FP) PO SCH (10:09)
[2023-09-19] MEDS: PANTOPRAZOLE 40 MG TABLET PO SCH (10:09)
[2023-09-19] MEDS: BUPRENORPHINE/NALOXONE 8 MG/2 MG FILM PACKET SL SCH ×2 (10:09→21:36)
[2023-09-19] MEDS: PRENATAL VITAMINS W/ FOLIC ACID TABLET (FP) PO SCH (10:09)
[2023-09-19] MEDS: OLANZapine 10 MG TABLET PO SCH (21:34)
[2023-09-19] MEDS: THIAMINE HCL 100 MG TABLET (FP) PO SCH (21:35)
[2023-09-19] MEDS: traZODone HCL 100 MG TABLET (FP) PO SCH (21:35)
[2023-09-19] MEDS: MELATONIN 5 MG TABLETS PO SCH (21:35)
[2023-09-20] MEDS: SERTRALINE HCL 50 MG TABLET (FP) PO SCH (09:59)
[2023-09-20] MEDS: BACITRACIN 0.9 GM PACKET TP SCH ×2 (09:59→21:33)
[2023-09-20] MEDS: amLODIPine BESYLATE 10 MG TABLET (FP) PO SCH (10:00)
[2023-09-20] MEDS: PANTOPRAZOLE 40 MG TABLET PO SCH (10:00)
[2023-09-20] MEDS: HYDROCHLOROTHIAZIDE 12.5 MG CAPSULE (FP) PO SCH (10:00)
[2023-09-20] MEDS: PRENATAL VITAMINS W/ FOLIC ACID TABLET (FP) PO SCH (10:00)
[2023-09-20] MEDS: LISINOPRIL 10 MG TABLET PO SCH (10:00)
[2023-09-20] MEDS: BUPRENORPHINE/NALOXONE 8 MG/2 MG FILM PACKET SL SCH ×2 (10:00→21:33)
[2023-09-20] MEDS: GABAPENTIN 300 MG CAPSULE PO SCH ×2 (10:00→21:33)
[2023-09-20] MEDS: MELATONIN 5 MG TABLETS PO SCH (21:32)
[2023-09-20] MEDS: THIAMINE HCL 100 MG TABLET (FP) PO SCH (21:32)
[2023-09-20] MEDS: traZODone HCL 100 MG TABLET (FP) PO SCH (21:33)
[2023-09-20] MEDS: OLANZapine 10 MG TABLET PO SCH (21:33)
[2023-09-20] MEDS ORDERED: INSULIN (NOVOLOG) ASPART 100 UNITS/ML 10ML VIAL ONE (21:46)
[2023-09-20] MEDS ORDERED: TUBERCULIN PPD 5 TU/0.1ML VIAL ID ONE (21:46)
[2023-09-21] MEDS: HYDROCHLOROTHIAZIDE 12.5 MG CAPSULE (FP) PO SCH (09:46)
[2023-09-21] MEDS: amLODIPine BESYLATE 10 MG TABLET (FP) PO SCH (09:46)
[2023-09-21] MEDS: BACITRACIN 0.9 GM PACKET TP SCH ×2 (09:46→21:35)
[2023-09-21] MEDS: GABAPENTIN 300 MG CAPSULE PO SCH ×2 (09:46→21:35)
[2023-09-21] MEDS: BUPRENORPHINE/NALOXONE 8 MG/2 MG FILM PACKET SL SCH ×2 (09:47→21:35)
[2023-09-21] MEDS: LISINOPRIL 10 MG TABLET PO SCH (09:47)
[2023-09-21] MEDS: SERTRALINE HCL 50 MG TABLET (FP) PO SCH (09:47)
[2023-09-21] MEDS: PRENATAL VITAMINS W/ FOLIC ACID TABLET (FP) PO SCH (09:47)
[2023-09-21] MEDS: COLLOIDAL OATMEAL 1 BAR EACH TP PRN (09:58)
[2023-09-21] MEDS: PANTOPRAZOLE 40 MG TABLET PO SCH (10:07)
[2023-09-21] MEDS: OLANZapine 10 MG TABLET PO SCH (21:35)
[2023-09-21] MEDS: traZODone HCL 100 MG TABLET (FP) PO SCH (21:35)
[2023-09-21] MEDS: THIAMINE HCL 100 MG TABLET (FP) PO SCH (21:35)
[2023-09-21] MEDS: MELATONIN 5 MG TABLETS PO SCH (21:36)
[2023-09-22] MEDS: PANTOPRAZOLE 40 MG TABLET PO SCH (10:14)
[2023-09-22] MEDS: SERTRALINE HCL 50 MG TABLET (FP) PO SCH (10:14)
[2023-09-22] MEDS: LISINOPRIL 10 MG TABLET PO SCH (10:14)
[2023-09-22] MEDS: HYDROCHLOROTHIAZIDE 12.5 MG CAPSULE (FP) PO SCH (10:15)
[2023-09-22] MEDS: BACITRACIN 0.9 GM PACKET TP SCH ×2 (10:15→21:22)
[2023-09-22] MEDS: amLODIPine BESYLATE 10 MG TABLET (FP) PO SCH (10:15)
[2023-09-22] MEDS: GABAPENTIN 300 MG CAPSULE PO SCH ×2 (10:15→21:23)
[2023-09-22] MEDS: PRENATAL VITAMINS W/ FOLIC ACID TABLET (FP) PO SCH (10:15)
[2023-09-22] MEDS: BUPRENORPHINE/NALOXONE 8 MG/2 MG FILM PACKET SL SCH ×2 (10:15→21:22)
[2023-09-22] MEDS: THIAMINE HCL 100 MG TABLET (FP) PO SCH (21:22)
[2023-09-22] MEDS: MELATONIN 5 MG TABLETS PO SCH (21:22)
[2023-09-22] MEDS: OLANZapine 10 MG TABLET PO SCH (21:23)
[2023-09-22] MEDS: traZODone HCL 100 MG TABLET (FP) PO SCH (21:23)
[2023-09-23] MEDS: GABAPENTIN 300 MG CAPSULE PO SCH ×2 (09:34→21:33)
[2023-09-23] MEDS: amLODIPine BESYLATE 10 MG TABLET (FP) PO SCH (09:34)
[2023-09-23] MEDS: PRENATAL VITAMINS W/ FOLIC ACID TABLET (FP) PO SCH (09:34)
[2023-09-23] MEDS: LISINOPRIL 10 MG TABLET PO SCH (09:34)
[2023-09-23] MEDS: SERTRALINE HCL 50 MG TABLET (FP) PO SCH (09:34)
[2023-09-23] MEDS: HYDROCHLOROTHIAZIDE 12.5 MG CAPSULE (FP) PO SCH (09:34)
[2023-09-23] MEDS: BUPRENORPHINE/NALOXONE 8 MG/2 MG FILM PACKET SL SCH ×2 (09:34→21:33)
[2023-09-23] MEDS: BACITRACIN 0.9 GM PACKET TP SCH ×2 (09:34→21:33)
[2023-09-23] MEDS: PANTOPRAZOLE 40 MG TABLET PO SCH (10:41)
[2023-09-23] MEDS: THIAMINE HCL 100 MG TABLET (FP) PO SCH (21:33)
[2023-09-23] MEDS: traZODone HCL 100 MG TABLET (FP) PO SCH (21:33)
[2023-09-23] MEDS: MELATONIN 5 MG TABLETS PO SCH (21:33)
[2023-09-23] MEDS: OLANZapine 10 MG TABLET PO SCH (21:34)
[2023-09-24] MEDS: PRENATAL VITAMINS W/ FOLIC ACID TABLET (FP) PO SCH (10:16)
[2023-09-24] MEDS: LISINOPRIL 10 MG TABLET PO SCH (10:16)
[2023-09-24] MEDS: amLODIPine BESYLATE 10 MG TABLET (FP) PO SCH (10:16)
[2023-09-24] MEDS: BACITRACIN 0.9 GM PACKET TP SCH ×2 (10:16→21:26)
[2023-09-24] MEDS: GABAPENTIN 300 MG CAPSULE PO SCH ×2 (10:16→21:26)
[2023-09-24] MEDS: BUPRENORPHINE/NALOXONE 8 MG/2 MG FILM PACKET SL SCH ×2 (10:16→21:26)
[2023-09-24] MEDS: HYDROCHLOROTHIAZIDE 12.5 MG CAPSULE (FP) PO SCH (10:16)
[2023-09-24] MEDS: SERTRALINE HCL 50 MG TABLET (FP) PO SCH (10:16)
[2023-09-24] MEDS: PANTOPRAZOLE 40 MG TABLET PO SCH (10:19)
[2023-09-24] MEDS: THIAMINE HCL 100 MG TABLET (FP) PO SCH (21:26)
[2023-09-24] MEDS: traZODone HCL 100 MG TABLET (FP) PO SCH (21:26)
[2023-09-24] MEDS: MELATONIN 5 MG TABLETS PO SCH (21:26)
[2023-09-24] MEDS: OLANZapine 10 MG TABLET PO SCH (21:26)
[2023-09-25] MEDS: PRENATAL VITAMINS W/ FOLIC ACID TABLET (FP) PO SCH (10:20)
[2023-09-25] MEDS: BACITRACIN 0.9 GM PACKET TP SCH ×2 (10:20→21:26)
[2023-09-25] MEDS: BUPRENORPHINE/NALOXONE 8 MG/2 MG FILM PACKET SL SCH ×2 (10:20→21:26)
[2023-09-25] MEDS: amLODIPine BESYLATE 10 MG TABLET (FP) PO SCH (10:20)
[2023-09-25] MEDS: GABAPENTIN 300 MG CAPSULE PO SCH ×2 (10:20→21:26)
[2023-09-25] MEDS: LISINOPRIL 10 MG TABLET PO SCH (10:21)
[2023-09-25] MEDS: HYDROCHLOROTHIAZIDE 12.5 MG CAPSULE (FP) PO SCH (10:21)
[2023-09-25] MEDS: SERTRALINE HCL 50 MG TABLET (FP) PO SCH (10:21)
[2023-09-25] MEDS: PANTOPRAZOLE 40 MG TABLET PO SCH (10:22)
[2023-09-25] MEDS: THIAMINE HCL 100 MG TABLET (FP) PO SCH (21:26)
[2023-09-25] MEDS: MELATONIN 5 MG TABLETS PO SCH (21:26)
[2023-09-25] MEDS: traZODone HCL 100 MG TABLET (FP) PO SCH (21:26)
[2023-09-25] MEDS: OLANZapine 10 MG TABLET PO SCH (21:27)
[2023-09-26] MEDS: HYDROCHLOROTHIAZIDE 12.5 MG CAPSULE (FP) PO SCH (10:07)
[2023-09-26] MEDS: amLODIPine BESYLATE 10 MG TABLET (FP) PO SCH (10:07)
[2023-09-26] MEDS: BUPRENORPHINE/NALOXONE 8 MG/2 MG FILM PACKET SL SCH ×2 (10:07→21:18)
[2023-09-26] MEDS: SERTRALINE HCL 50 MG TABLET (FP) PO SCH (10:07)
[2023-09-26] MEDS: PRENATAL VITAMINS W/ FOLIC ACID TABLET (FP) PO SCH (10:07)
[2023-09-26] MEDS: BACITRACIN 0.9 GM PACKET TP SCH ×2 (10:07→21:18)
[2023-09-26] MEDS: PANTOPRAZOLE 40 MG TABLET PO SCH (10:08)
[2023-09-26] MEDS: GABAPENTIN 300 MG CAPSULE PO SCH ×2 (10:08→21:18)
[2023-09-26] MEDS: LISINOPRIL 10 MG TABLET PO SCH (10:08)
[2023-09-26] MEDS: THIAMINE HCL 100 MG TABLET (FP) PO SCH (21:17)
[2023-09-26] MEDS: traZODone HCL 100 MG TABLET (FP) PO SCH (21:18)
[2023-09-26] MEDS: MELATONIN 5 MG TABLETS PO SCH (21:18)
[2023-09-26] MEDS: OLANZapine 10 MG TABLET PO SCH (21:18)
[2023-09-27] MEDS: PRENATAL VITAMINS W/ FOLIC ACID TABLET (FP) PO SCH (10:24)
[2023-09-27] MEDS: BACITRACIN 0.9 GM PACKET TP SCH ×2 (10:24→21:09)
[2023-09-27] MEDS: BUPRENORPHINE/NALOXONE 8 MG/2 MG FILM PACKET SL SCH ×2 (10:24→21:09)
[2023-09-27] MEDS: amLODIPine BESYLATE 10 MG TABLET (FP) PO SCH (10:25)
[2023-09-27] MEDS: SERTRALINE HCL 50 MG TABLET (FP) PO SCH (10:25)
[2023-09-27] MEDS: LISINOPRIL 10 MG TABLET PO SCH (10:25)
[2023-09-27] MEDS: GABAPENTIN 300 MG CAPSULE PO SCH ×2 (10:25→21:09)
[2023-09-27] MEDS: HYDROCHLOROTHIAZIDE 12.5 MG CAPSULE (FP) PO SCH (10:25)
[2023-09-27] MEDS: PANTOPRAZOLE 40 MG TABLET PO SCH (10:25)
[2023-09-27] MEDS: COLLOIDAL OATMEAL 1 BAR EACH TP PRN (12:34)
[2023-09-27] MEDS: OLANZapine 10 MG TABLET PO SCH (21:09)
[2023-09-27] MEDS: THIAMINE HCL 100 MG TABLET (FP) PO SCH (21:09)
[2023-09-27] MEDS: traZODone HCL 100 MG TABLET (FP) PO SCH (21:09)
[2023-09-27] MEDS: MELATONIN 5 MG TABLETS PO SCH (21:12)
[2023-09-28] MEDS: SERTRALINE HCL 50 MG TABLET (FP) PO SCH (09:29)
[2023-09-28] MEDS: PRENATAL VITAMINS W/ FOLIC ACID TABLET (FP) PO SCH (09:29)
[2023-09-28] MEDS: LISINOPRIL 10 MG TABLET PO SCH (09:30)
[2023-09-28] MEDS: BACITRACIN 0.9 GM PACKET TP SCH ×2 (09:30→21:14)
[2023-09-28] MEDS: HYDROCHLOROTHIAZIDE 12.5 MG CAPSULE (FP) PO SCH (09:30)
[2023-09-28] MEDS: GABAPENTIN 300 MG CAPSULE PO SCH ×2 (09:30→21:14)
[2023-09-28] MEDS: amLODIPine BESYLATE 10 MG TABLET (FP) PO SCH (09:30)
[2023-09-28] MEDS: BUPRENORPHINE/NALOXONE 8 MG/2 MG FILM PACKET SL SCH ×2 (09:32→21:14)
[2023-09-28] MEDS: PANTOPRAZOLE 40 MG TABLET PO SCH (10:13)
[2023-09-28] MEDS: THIAMINE HCL 100 MG TABLET (FP) PO SCH (21:14)
[2023-09-28] MEDS: MELATONIN 5 MG TABLETS PO SCH (21:14)
[2023-09-28] MEDS: traZODone HCL 100 MG TABLET (FP) PO SCH (21:14)
[2023-09-28] MEDS: OLANZapine 10 MG TABLET PO SCH (21:15)
[2023-09-29] MEDS: GABAPENTIN 300 MG CAPSULE PO SCH ×2 (10:07→21:25)
[2023-09-29] MEDS: PRENATAL VITAMINS W/ FOLIC ACID TABLET (FP) PO SCH (10:07)
[2023-09-29] MEDS: BACITRACIN 0.9 GM PACKET TP SCH ×2 (10:07→21:25)
[2023-09-29] MEDS: HYDROCHLOROTHIAZIDE 12.5 MG CAPSULE (FP) PO SCH (10:07)
[2023-09-29] MEDS: amLODIPine BESYLATE 10 MG TABLET (FP) PO SCH (10:07)
[2023-09-29] MEDS: LISINOPRIL 10 MG TABLET PO SCH (10:07)
[2023-09-29] MEDS: SERTRALINE HCL 50 MG TABLET (FP) PO SCH (10:07)
[2023-09-29] MEDS: BUPRENORPHINE/NALOXONE 8 MG/2 MG FILM PACKET SL SCH ×2 (10:08→21:25)
[2023-09-29] MEDS: PANTOPRAZOLE 40 MG TABLET PO SCH (10:08)
[2023-09-29 17:16] LABS: URINE APPEARANCE CLEAR; URINE BILIRUBIN NEGATIVE (NEGATIVE); URINE COLOR YELLOW; URINE GLUCOSE (UA) NEGATIVE (NEGATIVE); URINE KETONE NEGATIVE (NEGATIVE); URINE LEUK ESTERASE NEGATIVE (NEGATIVE); URINE NITRITE NEGATIVE (NEGATIVE); URINE PROTEIN NEGATIVE (NEGATIVE)
[2023-09-29] MEDS: THIAMINE HCL 100 MG TABLET (FP) PO SCH (21:25)
[2023-09-29] MEDS: traZODone HCL 100 MG TABLET (FP) PO SCH (21:25)
[2023-09-29] MEDS: MELATONIN 5 MG TABLETS PO SCH (21:25)
[2023-09-29] MEDS: OLANZapine 10 MG TABLET PO SCH (21:25)
[2023-09-30] MEDS: SERTRALINE HCL 50 MG TABLET (FP) PO SCH (09:54)
[2023-09-30] MEDS: BUPRENORPHINE/NALOXONE 8 MG/2 MG FILM PACKET SL SCH ×2 (09:54→21:27)
[2023-09-30] MEDS: amLODIPine BESYLATE 10 MG TABLET (FP) PO SCH (09:54)
[2023-09-30] MEDS: LISINOPRIL 10 MG TABLET PO SCH (09:54)
[2023-09-30] MEDS: HYDROCHLOROTHIAZIDE 12.5 MG CAPSULE (FP) PO SCH (09:54)
[2023-09-30] MEDS: BACITRACIN 0.9 GM PACKET TP SCH ×2 (09:54→21:27)
[2023-09-30] MEDS: GABAPENTIN 300 MG CAPSULE PO SCH ×2 (09:54→21:27)
[2023-09-30] MEDS: PRENATAL VITAMINS W/ FOLIC ACID TABLET (FP) PO SCH (09:54)
[2023-09-30] MEDS: PANTOPRAZOLE 40 MG TABLET PO SCH (10:57)
[2023-09-30] MEDS: traZODone HCL 100 MG TABLET (FP) PO SCH (21:27)
[2023-09-30] MEDS: OLANZapine 10 MG TABLET PO SCH (21:27)
[2023-09-30] MEDS: MELATONIN 5 MG TABLETS PO SCH (21:27)
[2023-09-30] MEDS: THIAMINE HCL 100 MG TABLET (FP) PO SCH (21:27)
[2023-10-01] MEDS: LISINOPRIL 10 MG TABLET PO SCH (09:52)
[2023-10-01] MEDS: SERTRALINE HCL 50 MG TABLET (FP) PO SCH (09:52)
[2023-10-01] MEDS: HYDROCHLOROTHIAZIDE 12.5 MG CAPSULE (FP) PO SCH (09:52)
[2023-10-01] MEDS: BACITRACIN 0.9 GM PACKET TP SCH ×2 (09:53→21:24)
[2023-10-01] MEDS: BUPRENORPHINE/NALOXONE 8 MG/2 MG FILM PACKET SL SCH ×2 (09:53→21:24)
[2023-10-01] MEDS: GABAPENTIN 300 MG CAPSULE PO SCH ×2 (09:53→21:24)
[2023-10-01] MEDS: amLODIPine BESYLATE 10 MG TABLET (FP) PO SCH (09:53)
[2023-10-01] MEDS: PRENATAL VITAMINS W/ FOLIC ACID TABLET (FP) PO SCH (09:54)
[2023-10-01] MEDS: PANTOPRAZOLE 40 MG TABLET PO SCH (10:34)
[2023-10-01] MEDS: traZODone HCL 100 MG TABLET (FP) PO SCH (21:24)
[2023-10-01] MEDS: OLANZapine 10 MG TABLET PO SCH (21:24)
[2023-10-01] MEDS: MELATONIN 5 MG TABLETS PO SCH (21:24)
[2023-10-01] MEDS: THIAMINE HCL 100 MG TABLET (FP) PO SCH (21:24)
[2023-10-02] MEDS: HYDROCHLOROTHIAZIDE 12.5 MG CAPSULE (FP) PO SCH (10:15)
[2023-10-02] MEDS: BACITRACIN 0.9 GM PACKET TP SCH ×2 (10:15→21:23)
[2023-10-02] MEDS: GABAPENTIN 300 MG CAPSULE PO SCH ×2 (10:15→21:23)
[2023-10-02] MEDS: amLODIPine BESYLATE 10 MG TABLET (FP) PO SCH (10:16)
[2023-10-02] MEDS: SERTRALINE HCL 50 MG TABLET (FP) PO SCH (10:16)
[2023-10-02] MEDS: PRENATAL VITAMINS W/ FOLIC ACID TABLET (FP) PO SCH (10:16)
[2023-10-02] MEDS: BUPRENORPHINE/NALOXONE 8 MG/2 MG FILM PACKET SL SCH ×2 (10:16→21:22)
[2023-10-02] MEDS: LISINOPRIL 10 MG TABLET PO SCH (10:16)
[2023-10-02] MEDS: PANTOPRAZOLE 40 MG TABLET PO SCH (10:17)
[2023-10-02] MEDS: THIAMINE HCL 100 MG TABLET (FP) PO SCH (21:23)
[2023-10-02] MEDS: OLANZapine 10 MG TABLET PO SCH (21:23)
[2023-10-02] MEDS: MELATONIN 5 MG TABLETS PO SCH (21:23)
[2023-10-02] MEDS: traZODone HCL 100 MG TABLET (FP) PO SCH (21:23)
[2023-10-03] MEDS: BACITRACIN 0.9 GM PACKET TP SCH ×2 (09:37→21:46)
[2023-10-03] MEDS: amLODIPine BESYLATE 10 MG TABLET (FP) PO SCH (09:37)
[2023-10-03] MEDS: BUPRENORPHINE/NALOXONE 8 MG/2 MG FILM PACKET SL SCH ×2 (09:37→21:46)
[2023-10-03] MEDS: PRENATAL VITAMINS W/ FOLIC ACID TABLET (FP) PO SCH (09:37)
[2023-10-03] MEDS: SERTRALINE HCL 50 MG TABLET (FP) PO SCH (09:37)
[2023-10-03] MEDS: GABAPENTIN 300 MG CAPSULE PO SCH ×2 (09:38→21:47)
[2023-10-03] MEDS: LISINOPRIL 10 MG TABLET PO SCH (09:38)
[2023-10-03] MEDS: HYDROCHLOROTHIAZIDE 12.5 MG CAPSULE (FP) PO SCH (09:38)
[2023-10-03] MEDS: PANTOPRAZOLE 40 MG TABLET PO SCH (10:05)
[2023-10-03] MEDS: THIAMINE HCL 100 MG TABLET (FP) PO SCH (21:47)
[2023-10-03] MEDS: MELATONIN 5 MG TABLETS PO SCH (21:47)
[2023-10-03] MEDS: OLANZapine 10 MG TABLET PO SCH (21:47)
[2023-10-03] MEDS: traZODone HCL 100 MG TABLET (FP) PO SCH (21:47)
[2023-10-04] MEDS: BACITRACIN 0.9 GM PACKET TP SCH ×2 (10:11→21:07)
[2023-10-04] MEDS: GABAPENTIN 300 MG CAPSULE PO SCH ×2 (10:12→21:06)
[2023-10-04] MEDS: HYDROCHLOROTHIAZIDE 12.5 MG CAPSULE (FP) PO SCH (10:12)
[2023-10-04] MEDS: amLODIPine BESYLATE 10 MG TABLET (FP) PO SCH (10:12)
[2023-10-04] MEDS: BUPRENORPHINE/NALOXONE 8 MG/2 MG FILM PACKET SL SCH ×2 (10:12→21:06)
[2023-10-04] MEDS: PRENATAL VITAMINS W/ FOLIC ACID TABLET (FP) PO SCH (10:12)
[2023-10-04] MEDS: SERTRALINE HCL 50 MG TABLET (FP) PO SCH (10:12)
[2023-10-04] MEDS: LISINOPRIL 10 MG TABLET PO SCH (10:12)
[2023-10-04] MEDS: PANTOPRAZOLE 40 MG TABLET PO SCH (10:13)
[2023-10-04] MEDS: COLLOIDAL OATMEAL 1 BAR EACH TP PRN (13:01)
[2023-10-04] MEDS: MELATONIN 5 MG TABLETS PO SCH (21:06)
[2023-10-04] MEDS: traZODone HCL 100 MG TABLET (FP) PO SCH (21:06)
[2023-10-04] MEDS: THIAMINE HCL 100 MG TABLET (FP) PO SCH (21:06)
[2023-10-04] MEDS: OLANZapine 10 MG TABLET PO SCH (21:06)
[2023-10-05] MEDS: BACITRACIN 0.9 GM PACKET TP SCH ×2 (10:09→21:25)
[2023-10-05] MEDS: BUPRENORPHINE/NALOXONE 8 MG/2 MG FILM PACKET SL SCH ×2 (10:09→21:25)
[2023-10-05] MEDS: PANTOPRAZOLE 40 MG TABLET PO SCH (10:09)
[2023-10-05] MEDS: HYDROCHLOROTHIAZIDE 12.5 MG CAPSULE (FP) PO SCH (10:09)
[2023-10-05] MEDS: PRENATAL VITAMINS W/ FOLIC ACID TABLET (FP) PO SCH (10:09)
[2023-10-05] MEDS: GABAPENTIN 300 MG CAPSULE PO SCH ×2 (10:09→21:26)
[2023-10-05] MEDS: amLODIPine BESYLATE 10 MG TABLET (FP) PO SCH (10:09)
[2023-10-05] MEDS: LISINOPRIL 10 MG TABLET PO SCH (10:09)
[2023-10-05] MEDS: SERTRALINE HCL 50 MG TABLET (FP) PO SCH (10:09)
[2023-10-05] MEDS: THIAMINE HCL 100 MG TABLET (FP) PO SCH (21:25)
[2023-10-05] MEDS: MELATONIN 5 MG TABLETS PO SCH (21:25)
[2023-10-05] MEDS: traZODone HCL 100 MG TABLET (FP) PO SCH (21:26)
[2023-10-05] MEDS: OLANZapine 10 MG TABLET PO SCH (21:26)
[2023-10-06 06:42] VITALS: RESP 16; TEMP 98.7
[2023-10-06 08:54] VITALS: BP 123/79; PULSE 94
[2023-10-06] MEDS: PRENATAL VITAMINS W/ FOLIC ACID TABLET (FP) PO SCH (09:45)
[2023-10-06] MEDS: SERTRALINE HCL 50 MG TABLET (FP) PO SCH (09:46)
[2023-10-06] MEDS: amLODIPine BESYLATE 10 MG TABLET (FP) PO SCH (09:46)
[2023-10-06] MEDS: BUPRENORPHINE/NALOXONE 8 MG/2 MG FILM PACKET SL SCH (09:46)
[2023-10-06] MEDS: HYDROCHLOROTHIAZIDE 12.5 MG CAPSULE (FP) PO SCH (09:46)
[2023-10-06] MEDS: LISINOPRIL 10 MG TABLET PO SCH (09:46)
[2023-10-06] MEDS: BACITRACIN 0.9 GM PACKET TP SCH (09:47)
[2023-10-06] MEDS: PANTOPRAZOLE 40 MG TABLET PO SCH (10:08)
[2023-10-06] MEDS: COLLOIDAL OATMEAL 1 BAR EACH TP PRN (10:08)
[2023-10-06] MEDS: GABAPENTIN 300 MG CAPSULE PO SCH (10:50)
== END 2023-10-06 14:26 | disposition home or self-care (01) | DRG 772 ==
LOC: YASAS 12:37 → Y3E 12:38
PROVIDERS: ADMIT Allergy & Immunology; ATTEND Psychiatry & Neurology Pain Medicine
PROC: HZ42ZZZ Group Counseling for Substance Abuse Treatment, Cognitive-Behavioral (ICD-10-PCS; principal; 2023-09-08)
DX: F11.20 Opioid dependence, uncomplicated (principal); F14.20 Cocaine dependence, uncomplicated; F13.20 Sedative, hypnotic or anxiolytic dependence, uncomplicated; F17.210 Nicotine dependence, cigarettes, uncomplicated; F20.9 Schizophrenia, unspecified; F31.9 Bipolar disorder, unspecified; B19.20 Unspecified viral hepatitis C without hepatic coma; Z99.89 Dependence on other enabling machines and devices
CPT/HCPCS: 36415; 80053; 81003; 82140; 82962; 83036; 85025; 86803; 87522